=== PATIENT | male | born 1935 | race Caucasian/White ===

== ENCOUNTER → 2018-02-12 | Outpatient (CLI) | payer OTHER, MEDICARE ==
[~2018-02-12] MED LIST: AMOX500C2 PO; ERYT3.5O8 OS; IOHEXOL 350 MG/ML 100 ML (OMNIPAQUE 350) VIAL IV ONE; NS 100 ML (IVPB) BAG IV ONE; RECEIVED CONTRAST (Hold Metformin) IV SCH
[2018-02-12 13:34] LABS: CREATININE SERUM 1.22 MG/DL (0.60-1.30)
--- NOTE | 2018-02-12 14:51 | Diagnostic Imaging Report ---
PROCEDURE: CT abdomen and pelvis with and without contrast. TECHNIQUE: Precontrast acquisitions were acquired through the abdomen and pelvis. Multiple contiguous axial images were obtained through the abdomen and pelvis after the administration of intravenous contrast. INDICATION: Abdominal pain. Patient has history of kidney stones. COMPARISON: Correlation is made with prior CT from 02/17/2008. FINDINGS: The lung bases are clear. No discrete liver mass is identified. The gallbladder appears to be surgically absent. No biliary ductal dilatation is identified. The pancreas and spleen are unremarkable. No adrenal mass is seen. There is a tiny nonobstructing calculus in the lower pole of the right kidney. There are multiple cortical low-density masses in both kidneys, the largest in the lower pole of the left kidney measuring 4.7 cm and most suggestive of cysts. The aorta is heavily calcified but nonaneurysmal. No central retroperitoneal or mesenteric lymphadenopathy is seen. The small and large bowel loops are normal in caliber. There is no ascites. A partially filled urinary bladder is unremarkable. The prostate gland is enlarged measuring 5.2 cm AP x 6.6 cm transverse. No pelvic lymphadenopathy is seen. Bony structures are nonacute. IMPRESSION: 1. Bilateral renal cysts and tiny nonobstructing right renal calculus. No obstructive uropathy is seen. 2. Prostatomegaly. Dictated by: Dictated on workstation # [id number]
== END ==
LOC: RAD 12:58
PROVIDERS: ATTEND Physician Assistant
DX: N28.1 Cyst of kidney, acquired (principal); N40.0 Benign prostatic hyperplasia without lower urinary tract symptoms; Z87.442 Personal history of urinary calculi
CPT/HCPCS: 36415; 74178; 82565; 84520

== ENCOUNTER 2019-01-08 05:41 | Outpatient (CLI) | payer MEDICARE, OTHER ==
[~2019-01-08] VITALS: Ht 177 cm; Wt 104.5 kg
[~2019-01-08 05:41] MED LIST changes: -IOHEXOL 350 MG/ML 100 ML (OMNIPAQUE 350) VIAL IV ONE; -NS 100 ML (IVPB) BAG IV ONE; -RECEIVED CONTRAST (Hold Metformin) IV SCH
[2019-01-08] MEDS ORDERED: ASPI-586 PO (15:21)
[2019-01-08] MEDS ORDERED: INSU100V6 SQ (15:21)
[2019-01-08] MEDS ORDERED: INSU100V16 SQ (15:21)
[2019-01-08] MEDS ORDERED: ROSU20TA32 PO (15:21)
[2019-01-08] MEDS ORDERED: [UNRECOGNIZED DRUG - CODE] PO (15:21)
[2019-01-08] MEDS ORDERED: HYDR25TA4 PO (15:21)
[2019-01-08] MEDS ORDERED: OMEP20TA7 PO (15:21)
[2019-01-08] MEDS ORDERED: CYAN500T62 PO (15:21)
[2019-01-08] MEDS ORDERED: LORA0.5T PO (15:21)
[2019-01-08] MEDS ORDERED: MECL-106 PO (15:21)
[2019-01-08] MEDS ORDERED: COD1CAPS6 PO (15:21)
== END 2019-01-08 15:25 | disposition home or self-care (01) ==
LOC: PREOP 05:41
PROVIDERS: ATTEND Specialist
DX: Z01.818 Encounter for other preprocedural examination (principal)

== ENCOUNTER 2019-01-10 07:57 | Day surgery (SDC) | payer MEDICARE, OTHER ==
[~2019-01-10] VITALS: Ht 177 cm; Wt 104.5 kg
[~2019-01-10 07:57] MED LIST changes: +ASPI-586 PO; +COD1CAPS13 PO; +CYAN500T62 PO; +HYDR25TA4 PO; +INSU100V16 SQ; +INSU100V6 SQ; +LORA0.5T PO; +MECL-106 PO; +OMEP20TA7 PO; +ROSU20TA32 PO; +[UNRECOGNIZED DRUG - CODE] PO
[2019-01-10] MEDS ORDERED: POVIDONE (BETADINE) OPHTH SOLN 5% 30 ML OP ONE (08:15)
[2019-01-10] MEDS ORDERED: LIDOCAINE PF 1% 2 ML AMP IR PRN (08:15)
[2019-01-10] MEDS ORDERED: MOXIFLOXACIN OPHTH SOLN 5 MG/ML 0.3 ML SYRINGE OP ONE (08:15)
[2019-01-10] MEDS ORDERED: TIMOLOL MALEATE 0.5% 5 ML (TIMOPTIC) BTL OU PRN (08:15)
[2019-01-10] MEDS: TETRACAINE 0.5% OPHTH SOLN 4 ML BTL (SINGLE DOSE ONLY) OU PRN ×4 (08:24→08:46)
[2019-01-10 08:28] VITALS: BP 145/85
[2019-01-10] MEDS: CYCLOPENTOLATE 1% (CYCLOGYL) 2 ML DROPS OP SCH ×3 (08:35→08:46)
[2019-01-10] MEDS: PHENYLEPHRINE 10% OPHTH (NEO-SYN) 5 ML BTL OU SCH ×3 (08:35→08:46)
--- NOTE | 2019-01-10 09:02 | Ophthalmologist Pre-Op Note ---
Pre-Operative Progress Note H&P Reviewed The H&P was reviewed, patient examined and no changes noted. Date H&P Reviewed: Jan 10, 2019 Time H&P Reviewed: 09:02 Pre-Op Dx Cataract, Right Eye SHARON ORTEGA MD Jan 10, 2019 09:02 POS
[2019-01-10] MEDS ORDERED: MIDAZOLAM 2 MG/2 ML (VERSED) VIAL ONE (09:07)
--- NOTE | 2019-01-10 09:30 | Ophthalmology Operative Report ---
Cataract removal/placement IOL PREOPERATIVE DIAGNOSIS: Cataract Right Eye POSTOPERATIVE DIAGNOSIS: Cataract Right Eye PROCEDURE: Cataract removal and placement of posterior chamber implant, right eye SURGEON: Telly Ortega ANESTHESIA: Topical with sedation COMPLICATIONS: None ESTIMATED BLOOD LOSS: Minimal DESCRIPTION OF PROCEDURE: After proper informed consent was obtained, the patient, a 83 male, was taken to the Operating Room and the right eye was anesthetized with tetracaine. The right eye was then prepped and draped in the usual manner. A wire lid speculum was placed. A paracentesis was made at the left hand position. Preservative free lidocaine was injected into the anterior chamber followed by viscoelastic. A clear corneal incision was made in the temporal position. A capsulorrhexis was preformed and the central nuclear and cortical material were removed. The posterior capsule was polished and Jah 21.0 AU00T0 IOL was placed into the capsular bag. The residual viscoelastic was aspirated and balanced saline solution was injected into the anterior chamber. Moxifloxacin was injected into the anterior chamber. The wound was checked and found to be water tight. The patient tolerated the procedure well without complications. TELLY ORTEGA MD Jan 10, 2019 09:30 POS
[2019-01-10 09:50] VITALS: BP 159/77
--- NOTE | 2019-01-10 11:50 | Anesthesia-General Post-Op ---
MAC Patient Condition Mental Status/LOC: Same as Preop Cardiovascular: Satisfactory Nausea/Vomiting: Absent Respiratory: Satisfactory Pain: Controlled Complications: Absent Post Op Complications Complications None Follow Up Care/Instructions Patient Instructions None needed. Anesthesiology Discharge Order Discharge Order Patient is doing well, no complaints, stable vital signs, no apparent adverse anesthesia problems. No complications reported per nursing. SALOMÓN DHILLON CRNA Jan 10, 2019 11:50 POS
== END 2019-01-10 09:50 | disposition home or self-care (01) ==
LOC: SDC 07:57
PROVIDERS: ATTEND Specialist
DX: H25.11 Age-related nuclear cataract, right eye (principal); I25.10 Atherosclerotic heart disease of native coronary artery without angina pectoris; I11.9 Hypertensive heart disease without heart failure; K21.9 Gastro-esophageal reflux disease without esophagitis; E66.9 Obesity, unspecified; M19.90 Unspecified osteoarthritis, unspecified site; Z68.33 Body mass index [BMI] 33.0-33.9, adult; Z79.4 Long term (current) use of insulin; Z88.2 Allergy status to sulfonamides; Z90.49 Acquired absence of other specified parts of digestive tract; Z90.89 Acquired absence of other organs; Z86.73 Personal history of transient ischemic attack (TIA), and cerebral infarction without residual deficits; Z79.899 Other long term (current) drug therapy; Z83.511 Family history of glaucoma; Z83.518 Family history of other specified eye disorder; Z83.3 Family history of diabetes mellitus

== ENCOUNTER 2019-01-17 07:15 | Day surgery (SDC) | payer MEDICARE, OTHER ==
[~2019-01-17] VITALS: Ht 177.8 cm; Wt 104.5 kg
[2019-01-17 07:15] VITALS: BP 166/110
[~2019-01-17 07:15] MED LIST changes: -COD1CAPS13 PO; +COD1CAPS6 PO
[2019-01-17] MEDS: TETRACAINE 0.5% OPHTH SOLN 4 ML BTL (SINGLE DOSE ONLY) OU PRN ×3 (07:26→07:59)
[2019-01-17] MEDS: PHENYLEPHRINE 10% OPHTH (NEO-SYN) 5 ML BTL OU SCH ×3 (07:26→07:59)
[2019-01-17] MEDS: CYCLOPENTOLATE 1% (CYCLOGYL) 2 ML DROPS OP SCH ×3 (07:26→07:59)
[2019-01-17] MEDS ORDERED: TIMOLOL MALEATE 0.5% 5 ML (TIMOPTIC) BTL OU PRN (07:30)
[2019-01-17] MEDS ORDERED: LIDOCAINE PF 1% 2 ML AMP IR PRN (07:30)
[2019-01-17] MEDS ORDERED: MOXIFLOXACIN OPHTH SOLN 5 MG/ML 0.3 ML SYRINGE OP ONE (07:30)
[2019-01-17] MEDS ORDERED: POVIDONE (BETADINE) OPHTH SOLN 5% 30 ML OP ONE (07:30)
--- NOTE | 2019-01-17 08:47 | Ophthalmologist Pre-Op Note ---
Pre-Operative Progress Note H&P Reviewed The H&P was reviewed, patient examined and no changes noted. Date H&P Reviewed: Jan 17, 2019 Time H&P Reviewed: 08:47 Pre-Op Dx Cataract, Left Eye SHARON ORTEGA MD Jan 17, 2019 08:47 POS
[2019-01-17] MEDS ORDERED: MIDAZOLAM 2 MG/2 ML (VERSED) VIAL ONE (08:57)
--- NOTE | 2019-01-17 09:15 | Ophthalmology Operative Report ---
Cataract removal/placement IOL PREOPERATIVE DIAGNOSIS: Cataract Left Eye POSTOPERATIVE DIAGNOSIS: Cataract Left Eye PROCEDURE: Cataract removal and placement of posterior chamber implant, left eye SURGEON: Telly Ortega ANESTHESIA: Topical with sedation COMPLICATIONS: None ESTIMATED BLOOD LOSS: Minimal DESCRIPTION OF PROCEDURE: After proper informed consent was obtained, the patient, a 84 male, was taken to the Operating Room and the left eye was anesthetized with tetracaine. The left eye was then prepped and draped in the usual manner. A wire lid speculum was placed. A paracentesis was made at the left hand position. Preservative free lidocaine was injected into the anterior chamber followed by viscoelastic. A clear corneal incision was made in the temporal position. A capsulorrhexis was preformed and the central nuclear and cortical material were removed. The posterior capsule was polished and an Jah 20.5 AU00T0 was placed into the capsular bag. The residual viscoelastic was aspirated and balanced saline solution was injected into the anterior chamber. Moxifloxacin was injected into the anterior chamber. The wound was checked and found to be water tight. The patient tolerated the procedure well without complications. TELLY ORTEGA MD Jan 17, 2019 09:14 POS
[2019-01-17 09:25] VITALS: BP 166/90
--- NOTE | 2019-01-17 12:36 | Anesthesia-General Post-Op ---
MAC Patient Condition Mental Status/LOC: Same as Preop Cardiovascular: Satisfactory Nausea/Vomiting: Absent Respiratory: Satisfactory Pain: Controlled Complications: Absent Post Op Complications Complications None Follow Up Care/Instructions Patient Instructions None needed. Anesthesiology Discharge Order Discharge Order Patient is doing well, no complaints, stable vital signs, no apparent adverse anesthesia problems. No complications reported per nursing. TISHA MONTOYA CRNA Jan 17, 2019 12:36 POS
== END 2019-01-17 09:25 | disposition home or self-care (01) ==
LOC: SDC 07:15
PROVIDERS: ATTEND Specialist
DX: E11.36 Type 2 diabetes mellitus with diabetic cataract (principal); H25.12 Age-related nuclear cataract, left eye; I10 Essential (primary) hypertension; I25.10 Atherosclerotic heart disease of native coronary artery without angina pectoris; G51.0 Bell's palsy; K21.9 Gastro-esophageal reflux disease without esophagitis; E66.9 Obesity, unspecified; M19.90 Unspecified osteoarthritis, unspecified site; Z68.33 Body mass index [BMI] 33.0-33.9, adult; Z90.49 Acquired absence of other specified parts of digestive tract; Z79.4 Long term (current) use of insulin; Z79.899 Other long term (current) drug therapy; Z88.2 Allergy status to sulfonamides; Z95.1 Presence of aortocoronary bypass graft; Z90.89 Acquired absence of other organs; Z87.891 Personal history of nicotine dependence; Z83.511 Family history of glaucoma; Z83.3 Family history of diabetes mellitus; Z83.518 Family history of other specified eye disorder

== ENCOUNTER 2019-03-28 20:14 | Inpatient (IN) | payer OTHER ==
[~2019-03-28] VITALS: Ht 177.8 cm; Wt 112.8 kg
[~2019-03-28 20:14] MED LIST changes: +COD1CAPS13 PO; -COD1CAPS6 PO; -MECL-106 PO; +MECL-149 PO
--- NOTE | 2019-03-28 20:24 | ED General ---
General Stated Complaint: WEAKNESS Source of Information: Patient, EMS Exam Limitations: No Limitations History of Present Illness Date Seen by Provider: Mar 28, 2019 Time Seen by Provider: 20:22 Initial Comments To ER for EMS from home with reports of general weakness, difficulty walking. Physical chills, nausea, vomiting, diarrhea, cough, runny nose. Symptoms began last night his was sick last night, she got up, he got up to help her. In doing so fell and hit his head area no loss of consciousness no headache he's had weakness, trouble walking because of the weakness and nausea today. Timing/Duration: 1-2 Days Severity: Moderate Associated Systoms: Cough, Fever/Chills; No Headaches; Nausea/Vomiting, Weakness Allergies and Home Medications Allergies Coded Allergies: Sulfa (Sulfonamide Antibiotics) (Unverified Allergy, Severe, HIVES, SOA, 01/08/19) Home Medications Aspirin 81 Mg Tablet.dr, 160 MG PO DAILY, (Reported) Cod Liver Oil 1 Each Capsule, 1 EACH PO DAILY, (Reported) Cyanocobalamin (Vitamin B-12) 500 Mcg Tablet, 500 MCG PO DAILY, (Reported) Erythromycin Stearate 250 Mg Tablet, 250 MG PO DAILY, (Reported) Hydrochlorothiazide 25 Mg Tablet, 25 MG PO DAILY, (Reported) Insulin Aspart 100 Unit/1 Ml Susp, 15 UNIT SQ AC, (Reported) Lorazepam 0.5 Mg Tablet, 0.5 MG PO DAILY, (Reported) Meclizine HCl 25 Mg Tablet, 25 MG PO DAILY, (Reported) Omeprazole 20 Mg Tablet.dr, 20 MG PO DAILY, (Reported) Oseltamivir Phosphate 75 Mg Cap, 75 MG PO BID Prescribed by: CARMITA VILLALPANDO on 03/30/19 1017 Rosuvastatin Calcium 20 Mg Tablet, 20 MG PO DAILY, (Reported) Patient Home Medication List Home Medication List Reviewed: Yes Review of Systems Review of Systems Constitutional: see HPI, weakness EENTM: see HPI Respiratory: see HPI, cough Cardiovascular: no symptoms reported Gastrointestinal: nausea, vomiting Genitourinary: no symptoms reported Musculoskeletal: no symptoms reported Skin: no symptoms reported Psychiatric/Neurological: No Symptoms Reported Hematologic/Lymphatic: No Symptoms Reported Immunological/Allergic: no symptoms reported Past Wkjwlbk-Vlsiuc-Koqfpa Hx Immunizations Up To Date Date of Pneumonia Vaccine: Feb 05, 2011 Past Medical History Heart Attack, Hypertension Reproductive Disorders: No Diabetes, Insulin dep Anxiety Family Medical History No Pertinent Family Hx Physical Exam Vital Signs Vital Signs - First Documented 03/28/19 03/28/19 03/28/19 03/29/19 20:16 20:35 22:11 01:25 Temp 36.7 Pulse 85 Resp 18 B/P (MAP) 129/68 (88) Pulse Ox 98 O2 Delivery Room Air O2 Flow Rate 2.00 FiO2 28 Capillary Refill : Height, Weight, BMI Height: 5'10" Weight: 230lbs. oz. 104.020773eh; BMI Method:Stated General Appearance: No Apparent Distress, WD/WN, Other Eyes: Bilateral Eye Normal Inspection, Bilateral Eye PERRL, Bilateral Eye EOMI HEENT: PERRL/EOMI, TMs Normal, Other Neck: Full Range of Motion, Normal Inspection Respiratory: No Accessory Muscle Use, No Respiratory Distress Gastrointestinal: Non Tender, Soft Neurologic/Psychiatric: Alert, Oriented x3 Skin: Normal Color, Warm/Dry Progress/Results/Core Measures Suspected Sepsis SIRS Temperature: Pulse: Respiratory Rate: Laboratory Tests 03/28/19 20:19: White Blood Count 6.9 03/29/19 06:14: White Blood Count 5.3 Blood Pressure / Mean: Laboratory Tests 03/28/19 20:19: Creatinine 1.09, Platelet Count 128L, Total Bilirubin 0.5 03/29/19 06:14: Creatinine 1.02, Platelet Count 139, Total Bilirubin 0.5 Results/Orders Lab Results Laboratory Tests Test 03/29/19 10:51 03/29/19 16:09 03/29/19 20:46 03/30/19 05:15 Range/Units Glucometer 257 H 229 H 85 165 H 70-110 MG/DL Test 03/30/19 10:55 Range/Units Glucometer 95 70-110 MG/DL Micro Results My Orders Medications Given in ED Vital Signs/I&O Capillary Refill : Departure Communication (Admissions) Time/Spoke to Admitting Phy: 20:45 Did become hypoxic at 86% on room air. O2 at 2L applied per NC. Impression Primary Impression: Influenza A Additional Impression: Hypoxia Disposition: ADMITTED INPATIENT Condition: Stable Admissions Decision to Admit Reason: Admit from ER (General) Decision to Admit/Date: Mar 31, 2019 Time/Decision to Admit Time: 20:45 Departure-Patient Inst. Referrals: WIN,NELLIE MD (PCP/Family) Primary Care Physician Scripts Oseltamivir Phosphate (Tamiflu) 75 Mg Cap 75 MG PO BID for 3 Days, #5 CAP 0 Refills Prov: CARMITA VILLALPANDO MD 03/30/19 KAYLA HOWELL APRN Mar 28, 2019 20:24
[2019-03-28 20:26] LABS: BASOPHILS % (AUTO) 0 % (0-10); EOSINOPHILS # (AUTO) 0.1 10^3/uL (0.0-0.3); EOSINOPHILS % (AUTO) 1 % (0-10); HEMATOCRIT 39 % (40-54); HEMOGLOBIN 13.3 G/DL (13.3-17.7); LYMPHOCYTES # (AUTO) 0.5 X 10^3 (1.0-4.0); LYMPHOCYTES % (AUTO) 7 % (12-44); MEAN CORPUSCULAR HEMOGLOBIN 30 PG (25-34); MEAN CORPUSCULAR HGB CONC 34 G/DL (32-36); MEAN CORPUSCULAR VOLUME 87 FL (80-99); MEAN PLATELET VOLUME 9.4 FL (7.4-10.4); MONOCYTES # (AUTO) 0.7 X 10^3 (0.0-1.0); MONOCYTES % (AUTO) 10 % (0-12); NEUTROPHILS # (AUTO) 5.6 X 10^3 (1.8-7.8); NEUTROPHILS % (AUTO) 82 % (42-75); PLATELET COUNT 128 10^3/uL (130-400); RED CELL DISTRIBUTION WIDTH 14.5 % (10.0-14.5); WHITE BLOOD COUNT 6.9 10^3/uL (4.3-11.0)
[2019-03-28] MEDS ORDERED: NS IV 1000 ML 1,000 ML IV SCH (20:30)
[2019-03-28] MEDS ORDERED: ONDANSETRON 4 MG/2 ML (SDV) Z0FRAN IVP ONE (20:30)
--- NOTE | 2019-03-28 20:35 | NUR ---
O2 SATS DROPPING TO 86-88%. Lance HOWELL APRN NOTIFIED. 02 APPLIED AT 2L VIA NC.
[2019-03-28 20:45] LABS: ALANINE AMINOTRANSFERASE 39 U/L (0-55); ALBUMIN 3.7 GM/DL (3.2-4.5); ALKALINE PHOSPHATASE 64 U/L (40-136); BILIRUBIN,TOTAL 0.5 MG/DL (0.1-1.0); BUN/CREATININE RATIO 13; CALCIUM 8.9 MG/DL (8.5-10.1); CARBON DIOXIDE 21 MMOL/L (21-32); CHLORIDE 105 MMOL/L (98-107); CREATININE SERUM 1.09 MG/DL (0.60-1.30); GFR ESTIMATED > 60; GLUCOSE 164 MG/DL (70-105); SODIUM 139 MMOL/L (135-145); TOTAL PROTEIN 6.5 GM/DL (6.4-8.2)
--- NOTE | 2019-03-28 21:20 | Diagnostic Imaging Report ---
PROCEDURE: CT head and CT cervical spine without contrast. TECHNIQUE: Multiple contiguous axial images were obtained through the brain and cervical spine without the use of intravenous contrast. Sagittal and coronal reformations through the cervical spine were then performed. Auto Exposure Controls were utilized during the CT exam to meet ALARA standards for radiation dose reduction. INDICATION: Fall with head trauma and weakness Comparison is made with prior examination from 05/21/2014. FINDINGS: There is prominence of the ventricles and sulci. There is no hydrocephalus or cerebral edema. There is no midline shift or mass-effect. There is no intracranial mass, hemorrhage, or extra-axial fluid collection. There is some diffuse decreased attenuation of the periventricular white matter which is nonspecific. The visualized paranasal sinuses and mastoid air cells are clear. There are no regional areas of decreased attenuation appreciated to suggest an acute CVA. IMPRESSION: 1. No acute intracranial process. 2. Age-appropriate atrophy. 3. Decreased attenuation of the periventricular white matter which is nonspecific, however, likely reflects senescent change and/or chronic small vessel ischemic disease. Dictated by: Dictated on workstation # [id number]
--- NOTE | 2019-03-28 21:23 | Diagnostic Imaging Report ---
PROCEDURE: CT abdomen and pelvis without contrast. TECHNIQUE: Multiple contiguous axial images were obtained through the abdomen and pelvis without the use of intravenous contrast. Auto Exposure Controls were utilized during the CT exam to meet ALARA standards for radiation dose reduction. INDICATION: Right abdominal pain after fall. Bilious vomiting and weakness. FINDINGS: There are coronary artery calcifications. The lung bases are clear. The liver is normal in size without focal lesions. Gallbladder appears to be surgically absent. Spleen is normal. Pancreas and adrenal glands are unremarkable. There is a punctate nonobstructing stone in the right kidney. There are bilateral renal cysts. There is mild atherosclerotic calcification of the aorta which is nonaneurysmal. Bowel gas pattern is nonspecific. No free air. No ascites. No focal inflammatory changes. There is some diverticular disease without evidence of diverticulitis. There is enlargement of the prostate. There are degenerative changes in the spine. IMPRESSION: Coronary artery calcification. Bilateral renal cysts and a punctate nonobstructing right renal calculus. Diverticular disease without evidence of diverticulitis. Prostatic enlargement. No other acute abnormality in the abdomen or pelvis. Dictated by: Dictated on workstation # [id number]
--- NOTE | 2019-03-28 21:34 | Diagnostic Imaging Report ---
INDICATION: Fall with abdominal pain. FINDINGS: There is cardiomegaly. There is a right perihilar infiltrate. No pleural effusion or pneumothorax. Mediastinum is unremarkable. IMPRESSION: Cardiomegaly with some right perihilar atelectasis and/or pneumonitis. Dictated by: Dictated on workstation # [id number]
[2019-03-28 21:39] LABS: BILIRUBIN,URINE NEGATIVE (NEGATIVE); CLARITY,URINE CLEAR; COLOR,URINE YELLOW; GLUCOSE, URINE (UA) TRACE (NEGATIVE); KETONES,URINE 1+ (NEGATIVE); LEUKOCYTE ESTERASE ,URINE NEGATIVE (NEGATIVE); NITRITE,URINE NEGATIVE (NEGATIVE); PROTEIN,URINE TRACE (NEGATIVE)
[2019-03-28 21:51] LABS: BACTERIA,URINE TRACE /HPF; RBC,URINE 0-2 /HPF; WBC,URINE 0-2 /HPF
--- NOTE | 2019-03-28 22:25 | NUR ---
JASSI COLE SR admitted to room 426-1, with an admitting diagnosis of INFLUENZA A WITH HYPOXIA, on 03/28/19 AT 2225 from ED via STRETCHER, accompanied by AND ED STAFF.JASSI COLE SR introduced to surroundings, call light, bed controls, phone, TV, temperature control, lights, meal times, smoking policy, visitor policy, side rail policy, bathrooms and showers. Patient Rights given to patient in the handbook. JASSI COLE SR verbalizes understanding that [facility] is not responsible for the loss or damage to any personal effects or valuables that are kept in the patients posession during their hospitalization. JASSI COLE SR verbalizes understanding of Interdisciplinary Patient Education. Patient and/or family were informed about the Rapid Response Team and its purpose.
[2019-03-28 22:32] VITALS: BP 165/83
[2019-03-28] MEDS ORDERED: PROMETHAZINE INJ 25 MG/ML (PHENERGAN) AMP IVP PRN ×2 (23:00→23:15)
[2019-03-28] MEDS ORDERED: ACETAMINOPHEN 325 MG TABLET PO PRN (23:00)
[2019-03-28] MEDS ORDERED: ONDANSETRON 4 MG/2 ML (SDV) Z0FRAN IVP PRN (23:00)
[2019-03-28] MEDS: ENOXAPARIN 40 MG/0.4 ML (LOVENOX) SYR SC SCH (23:54)
[2019-03-28] MEDS: NS IV 1000 ML 1,000 ML IV SCH (23:54)
[2019-03-28] MEDS: OSELTAMIVIR 75 MG (TAMIFLU) CAPSULE PO SCH (23:54)
[2019-03-29] VITALS (7 sets, daily range): BP systolic 121–156; BP diastolic 57–71
[2019-03-29] MEDS ORDERED: RT-ALBUTEROL SULF 2.5 MG/3 ML PRE-MIX VIAL ONE (01:33)
[2019-03-29] MEDS: RT-ALBUTEROL/IPRATROPIUM 3 ML (DUONEB) VIAL INH SCH ×7 (01:46→22:04)
[2019-03-29] MEDS: inSUlin ASPART (NovoLOG) 1 UNIT/0.01 ML (CHARGE PER UNIT) SC SCH ×7 (06:00→21:09)
[2019-03-29 06:22] LABS: BASOPHILS % (AUTO) 0 % (0-10); EOSINOPHILS # (AUTO) 0.1 10^3/uL (0.0-0.3); EOSINOPHILS % (AUTO) 1 % (0-10); HEMATOCRIT 38 % (40-54); HEMOGLOBIN 12.7 G/DL (13.3-17.7); LYMPHOCYTES # (AUTO) 0.6 X 10^3 (1.0-4.0); LYMPHOCYTES % (AUTO) 11 % (12-44); MEAN CORPUSCULAR HEMOGLOBIN 30 PG (25-34); MEAN CORPUSCULAR HGB CONC 33 G/DL (32-36); MEAN CORPUSCULAR VOLUME 88 FL (80-99); MEAN PLATELET VOLUME 9.6 FL (7.4-10.4); MONOCYTES # (AUTO) 0.7 X 10^3 (0.0-1.0); MONOCYTES % (AUTO) 14 % (0-12); NEUTROPHILS # (AUTO) 3.9 X 10^3 (1.8-7.8); NEUTROPHILS % (AUTO) 74 % (42-75); PLATELET COUNT 139 10^3/uL (130-400); RED CELL DISTRIBUTION WIDTH 14.5 % (10.0-14.5); WHITE BLOOD COUNT 5.3 10^3/uL (4.3-11.0)
[2019-03-29 06:42] LABS: ALANINE AMINOTRANSFERASE 34 U/L (0-55); ALBUMIN 3.4 GM/DL (3.2-4.5); ALKALINE PHOSPHATASE 62 U/L (40-136); BILIRUBIN,TOTAL 0.5 MG/DL (0.1-1.0); BUN/CREATININE RATIO 13; CALCIUM 8.5 MG/DL (8.5-10.1); CARBON DIOXIDE 25 MMOL/L (21-32); CHLORIDE 108 MMOL/L (98-107); CREATININE SERUM 1.02 MG/DL (0.60-1.30); GFR ESTIMATED > 60; GLUCOSE 199 MG/DL (70-105); POTASSIUM 4.2 MMOL/L (3.6-5.0); SODIUM 142 MMOL/L (135-145); TOTAL PROTEIN 6.1 GM/DL (6.4-8.2)
[2019-03-29] MEDS: OSELTAMIVIR 75 MG (TAMIFLU) CAPSULE PO SCH ×2 (09:41→21:09)
--- NOTE | 2019-03-29 10:16 | Physical Therapy Evaluation ---
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 He fell and struck his head on an intable. Pt taken to ER via EMS. Admitted with Influenza A. Social History Home: Single Level Current Living Status: Spouse Prior Prior Level of Function SCALE: Activities may be completed with or without assistive devices. 9-Ehhrlpvoqw-awsrvka completes the activity by him/herself with no assistance from a helper. 5-Set-up or Clean-up Assistance-helper sets up or cleans up; patient completes activity. [place] assists only prior to or following the activity. 4-Supervision or Touching Assistance-helper provides verbal cues and/or touching/steadying and/or contact guard assistance as patient completes activi ty. Assistance may be provided throughout the activity or intermittently. 3-Partial/Moderate Assistance-helper does LESS THAN HALF the effort. [place] lifts, holds or supports trunk or limbs, but provides less than half the effort. 2-Substantial/Maximal Assistance-helper does MORE THAN HALF the effort. [place] lifts or holds trunk or limbs and provides more than half the effort. 2-Omsmxibak-toffsv does ALL the effort. Patient does none of the effort to complete the activity. Or, the assistance of 2 or more helpers is required for the patient to complete the activity. If activity was not attempted, code reason: 7-Patient Refused. 9-Not Applicable-not attempted and the patient did not perform the activity before the current illness, exacerbation or injury. 10-Not Attempted due to Environmental Limitations-(lack of equipment, weather restraints, etc.). 88-Not Attempted due to Medical Conditions or Safety Concerns. Bed Mobility: 6 Transfers (B,C,W/C): 6 Gait: 6 Stairs: 6 Uses a single point cane due to chronic knee pain from OA and intermittent vertigo. PT Evaluation-Current Subjective Pt reports that he is feeling much better. Regarding balance he feels normal. Objective Patient Orientation: Normal For Age ROM/Strength ROM Upper Extremities WFL ROM Lower Extremities WFL Strength Upper Extremities WFL Strength Lower Extremities WFL Sensory Vision: Functional Hearing: Functional Transfers Roll Left to Right (QC): 6 Sit to Lying (QC): 6 Lying to Sitting/Side of Bed(Q: 6 Sit to Stand (QC): 5 Chair/Moi-oh-Uibpe Xfer(QC): 5 Gait Does the Patient Walk?: Yes Mode of Locomotion: Walk Anticipated Mode of Locomotion: Walk Walk 10 feet (QC): 5 Walk 50 ft with 2 Turns(QC): 5 Walk 150 ft (QC): 88 Walking 10ft/uneven surface-QC: 88 Distance: 50 Gait Assistive Device: Cane Single Point Comments/Gait Description Stable gait using single point cane. CGA due to report of intermittent vertigo. Walked in the room around the bed multiple times. Did not enter hallway due to dx. Wheelchair Training Does the Pt Use a Wheelchair?: No Balance Sitting Static: Normal Sitting Dynamic: Normal Standing Static: Good Standing Dynamic: Good Assessment/Needs Pt has some instability during gait that would benefit from a follow up visit to ensure stability in wide open spaces. Rehab Potential: Good PT Music Internship Goals Music Internship Goals PT Intermediate Goals Time Frame: Apr 01, 2019 Roll Left & Right (QC): 6 Sit to Lying (QC): 6 Lying-Sitting on Side/Bed(QC): 6 Sit to Stand (QC): 6 Chair/Vgl-ek-Xiatw Xfer(QC): 6 Toilet Transfer (QC): 6 Does the Patient Walk: Yes Walk 10 feet (QC): 6 Walk 50ft with 2 Turns (QC): 6 Walk 150 ft (QC): 6 PT Plan Problem List Problem List: Activity Tolerance, Gait Treatment/Plan Treatment Plan: Continue Plan of Care Treatment Duration: Apr 04, 2019 Frequency: 5 times per week Estimated Hrs Per Day: .25 hour per day Patient and/or Family Agrees t: Yes Safety Risks/Education Patient Education: Gait Training Teaching Recipient: Patient Discharge Recommendations Plan Plan to perform one follow up session for gait re-assessment. If patient dem onstrates safe mobility he will be dismissed from PT services. Target Placement home with Time/GCodes Time In: 900 Time Out: 940 Total Billed Treatment Time: 40 Total Billed Treatment visit, evaluation moderate complexity 40 min HEIDI VACA PT Mar 29, 2019 10:16
--- NOTE | 2019-03-29 12:42 | History & Physical-Hospitalist ---
History of Present Illness HPI/Chief Complaint Randy Elliott is an 84-year-old male with past medical history of hypertension, diabetes mellitus, hyperlipidemia, GERD, who presented with weakness. He reports that he got up out of bed and the felt very weak and had a fall. He reports that he has had the chills. He reports nausea and vomiting. He reports runny nose and cough. His has been sick and was diagnosed with the flu. He reports feeling short of breath. He denies any chest pain. He denies any abdominal pain. He denies any dysuria. He denies any rash. Source: patient Exam Limitations: no limitations Date Seen 03/29/19 Time Seen by a Provider: 09:25 Attending Physician Carmita Villalpando MD PCP Dawit Dempsey MD Referring Physician Date of Admission Mar 28, 2019 at 21:38 Home Medications & Allergies Home Medications Reviewed patient Home Medication Reconciliation performed by pharmacy medication reconciliations oil burner technician and/or nursing. Patients Allergies have been reviewed. Allergies Allergies Coded Allergies Sulfa (Sulfonamide Antibiotics) (Unverified Allergy, Severe, HIVES, SOA, 01/08/19) Past Vnepnqh-Khtrla-Ljnvrz Hx Past Med/Social Hx: Reviewed Nursing Past Med/Soc Hx Patient Social History Alcohol Use: Denies Use Recreational Drug Use: No Smoking Status: Former Smoker Recent Foreign Travel: No Contact w/other who traveled: No Recent Hopitalizations: No Recent Infectious Disease Expo: Yes (Has flu A) Immunizations Up To Date Date of Pneumonia Vaccine: Feb 05, 2011 Past Medical History Surgeries: Appendectomy, Coronary Stent Cardiac: Coronary Artery Disease, Heart Attack, Hypertension Neurological: Stroke Reproductive: No Endocrine: Diabetes, Insulin dep Psychosocial: Anxiety History of Blood Disorders: No Family History No Pertinent Family Hx Review of Systems Constitutional: chills, malaise, weakness EENTM: nose congestion Respiratory: cough, short of breath Cardiovascular: no symptoms reported Gastrointestinal: nausea, vomiting Genitourinary: no symptoms reported Musculoskeletal: no symptoms reported Skin: no symptoms reported Psychiatric/Neurological: No Symptoms Reported Physical Exam Physical Exam Vital Signs Vital Signs - First Documented 03/28/19 03/28/19 03/28/19 03/29/19 20:16 20:35 22:11 01:25 Temp 36.7 Pulse 85 Resp 18 B/P (MAP) 129/68 (88) Pulse Ox 98 O2 Delivery Room Air O2 Flow Rate 2.00 FiO2 28 Capillary Refill : Less Than 3 Seconds Height, Weight, BMI Height: 5'10" Weight: 230lbs. oz. 104.509845sq; 35.68 BMI Method:Stated General Appearance: No Apparent Distress, WD/WN, Obese HEENT: PERRL/EOMI, Pharynx Normal Neck: Normal Inspection, Supple Respiratory: No Respiratory Distress, Crackles Cardiovascular: Regular Rate, Rhythm, No Edema, No Murmur Gastrointestinal: Normal Bowel Sounds, Non Tender, Soft Extremity: Normal Inspection, Non Tender, No Pedal Edema Neurologic/Psychiatric: Alert, Oriented x3, No Motor/Sensory Deficits, Normal Mood/Affect Skin: Normal Color, Warm/Dry Results Results/Procedures Labs Laboratory Tests 03/28/19 20:19 03/29/19 06:14 Patient resulted labs reviewed. Imaging: Reviewed Imaging Report Assessment/Plan Admission Diagnosis Acute respiratory failure with hypoxia Admission Status: Inpatient Order (span 2 midnights) Reason for Inpatient Admission: Influenza requiring oxygen Assessment and Plan Acute respiratory failure with hypoxia Influenza A Flu testing positive for influenza A Requiring supplemental oxygen Started on Tamiflu Type II diabetes mellitus Levemir 30 units nightly NovoLog 10 units with meals Sliding scale insulin level C Hypertension Hyperlipidemia GERD Resume home meds after med reconciliation DVT prophylaxis: Lovenox Diagnosis/Problems Diagnosis/Problems (1) Acute respiratory failure with hypoxia (2) Influenza A Status: Acute Clinical Quality Measures DVT/VTE Risk/Contraindication: Risk Factor Score Per Nursin RFS Level Per Nursing on Admit: 4+=Very High CARMITA VILLALPANDO MD Mar 29, 2019 12:42
[2019-03-29] MEDS ORDERED: MILK OF MAGNESIA 400 MG/5 ML 30 ML UDC PO PRN (12:45)
[2019-03-29] MEDS ORDERED: ACETAMINOPHEN 325 MG TABLET PO PRN (12:45)
[2019-03-29] MEDS ORDERED: polyethylene glycoL POWDER 17 GM (MIRALAX) PACK PO PRN (12:45)
[2019-03-29] MEDS ORDERED: ANTACID SUSP 30 ML UDC (MYLANTA) PO PRN (12:45)
[2019-03-29] MEDS ORDERED: MELATONIN 3 MG TABLET PO PRN (12:45)
[2019-03-29] MEDS ORDERED: ONDANSETRON 4 MG (ZOFRAN) ORAL DISSOLVE TAB PO PRN (12:45)
[2019-03-29] MEDS ORDERED: BISACODYL 10 MG SUPP (DULCOLAX) PR PRN (12:45)
[2019-03-29] MEDS ORDERED: SIMETHICONE 80 MG (MYLICON) CHEW PO PRN (13:45)
[2019-03-29] MEDS: NS IV 1000 ML 1,000 ML IV SCH (13:55)
[2019-03-29] MEDS: METOCLOPRAMIDE 10 MG (REGLAN) TAB PO SCH ×2 (17:32→21:09)
--- NOTE | 2019-03-29 21:00 | NUR ---
Dr. Mcfadden notified of accucheck at 85. Instructed to give only 15 units of Levemir at HS.
[2019-03-29] MEDS: ENOXAPARIN 40 MG/0.4 ML (LOVENOX) SYR SC SCH (21:09)
[2019-03-30 00:10] VITALS: BP 136/73
[2019-03-30] MEDS: RT-ALBUTEROL/IPRATROPIUM 3 ML (DUONEB) VIAL INH SCH ×3 (02:49→11:05)
[2019-03-30] MEDS: NS IV 1000 ML 1,000 ML IV SCH (03:19)
[2019-03-30 04:00] VITALS: BP 166/68
[2019-03-30] MEDS: inSUlin ASPART (NovoLOG) 1 UNIT/0.01 ML (CHARGE PER UNIT) SC SCH ×3 (06:03→11:29)
[2019-03-30] MEDS: METOCLOPRAMIDE 10 MG (REGLAN) TAB PO SCH ×2 (06:37→11:29)
[2019-03-30] MEDS ORDERED: PATIENT MAY USE OWN MEDS, ALL MC SCH (07:45)
[2019-03-30 07:46] VITALS: BP 175/84
[2019-03-30] MEDS ORDERED: [UNRECOGNIZED DRUG - CODE] PO (07:57)
[2019-03-30] MEDS: OSELTAMIVIR 75 MG (TAMIFLU) CAPSULE PO SCH (08:30)
[2019-03-30] MEDS ORDERED: ERYTHROMYCIN 250 MG PO SCH (09:00)
[2019-03-30] MEDS ORDERED: OSLT75C PO (10:17)
--- NOTE | 2019-03-30 10:21 | Discharge Summary ---
Discharge Summary Hospital Course Was the Problem List Reviewed?: Yes Problems/Dx: (1) Acute respiratory failure with hypoxia Status: Resolved (2) Influenza A Status: Acute Hospital Course Date of Admission: Mar 28, 2019 at 21:38 Admission Diagnosis : Acute hypoxic respiratory failure due to influenza infection Family Physician/Provider: Dawit Rodriguez MD Date of Discharge: 03/30/19 Discharge Diagnosis: Acute hypoxic respiratory failure due to influenza in [facility] Hospital Course: Randy Elliott is an 84-year-old male who presented with shortness of breath and was admitted with acute hypoxic respiratory failure due to influenza infection. He was started on Tamiflu. His oxygen requirement decreased and resolved prior to discharge. He showed a follow-up with his primary care physician, Dr. Adeola york, in about a week. Labs and Pending Lab Test: Laboratory Tests 03/29/19 10:51: Glucometer 257H 03/29/19 16:09: Glucometer 229H 03/29/19 20:46: Glucometer 85 03/30/19 05:15: Glucometer 165H Microbiology 03/28/19 Influenza Types A,B Antigen (FLAKITO) - Final, Complete Home Meds Active Tamiflu (Oseltamivir Phosphate) 75 Mg Cap 75 Mg PO BID 3 Days Reported Novolog (Insulin Aspart) 100 Unit/1 Ml Susp 15 Unit SQ AC Lantus (Insulin Glargine,Hum.rec.anlog) 100 Unit/1 Ml Vial 100 Unit SQ Cod Liver Oil 1 Each Capsule 1 Each PO DAILY Vitamin B-12 (Cyanocobalamin (Vitamin B-12)) 500 Mcg Tablet 500 Mcg PO DAILY Aspir 81 (Aspirin) 81 Mg Tablet.dr 160 Mg PO DAILY Meclizine HCl 25 Mg Tablet 25 Mg PO DAILY Lorazepam 0.5 Mg Tablet 0.5 Mg PO DAILY Omeprazole 20 Mg Tablet.dr 20 Mg PO DAILY Erythromycin Stearate 250 Mg Tablet 250 Mg PO DAILY Rosuvastatin Calcium 20 Mg Tablet 20 Mg PO DAILY Hydrochlorothiazide 25 Mg Tablet 25 Mg PO DAILY Assessment/Pt Instructions Take medications as prescribed. Complete your course of Tamiflu even if you're feeling better. Follow-up with your primary care physician in about a week. Discharge Planning: <30 minutes discharge planning Discharge Instructions Discharge Diet: No Restrictions Activity as Tolerated: Yes Discharge Physical Examination Vital Signs Vital Signs Date Time Temp Pulse Resp B/P (MAP) Pulse Ox O2 Delivery O2 Flow Rate FiO2 2/23/20 07:46 37.2 74 18 175/84 (114) 92 Room Air 03/30/19 00:10 1.50 03/29/19 01:25 28 General Appearance: No Apparent Distress, WD/WN Respiratory: Lungs Clear, Normal Breath Sounds, No Respiratory Distress Cardiovascular: Regular Rate, Rhythm, No Edema, No Murmur Gastrointestinal: Normal Bowel Sounds, Non Tender, Soft Extremity: Normal Inspection, Non Tender, No Pedal Edema Skin: Normal Color, Warm/Dry Neurologic/Psychiatric: Alert, Oriented x3, No Motor/Sensory Deficits, Normal Mood/Affect Allergies: Coded Allergies: Sulfa (Sulfonamide Antibiotics) (Unverified Allergy, Severe, HIVES, SOA, 01/08/19) Copy Copies To 1: DAWIT RODRIGUEZ MD Discharge Summary Date of Admission Mar 28, 2019 at 21:38 Date of Discharge Discharge Date: Mar 30, 2019 Discharge Time: 10:21 Admission Diagnosis Acute respiratory failure with hypoxia Discharge Diagnosis Acute respiratory failure with hypoxia, Influenza A (1) Acute respiratory failure with hypoxia Status: Resolved (2) Influenza A Status: Acute Clinical Quality Measures DVT/VTE Risk/Contraindication: Risk Factor Score Per Nursin RFS Level Per Nursing on Admit: 4+=Very High CARMITA VILLALPANDO MD Mar 30, 2019 10:21
[2019-03-30] MEDS ORDERED: ERYTHROMYCIN STEARATE PO SCH (11:30)
== END 2019-03-30 11:20 | disposition home or self-care (01) | DRG 193 ==
LOC: EDUNIT# 20:14 → ER 20:15 → UNDOADMIN 21:38 → 4TH 21:38
PROVIDERS: ADMIT Internal Medicine; ATTEND Internal Medicine
DX: J10.1 Influenza due to other identified influenza virus with other respiratory manifestations (principal); J96.01 Acute respiratory failure with hypoxia; E11.9 Type 2 diabetes mellitus without complications; Z79.4 Long term (current) use of insulin; F41.9 Anxiety disorder, unspecified; I10 Essential (primary) hypertension; E78.5 Hyperlipidemia, unspecified; I25.10 Atherosclerotic heart disease of native coronary artery without angina pectoris; K21.9 Gastro-esophageal reflux disease without esophagitis; I25.2 Old myocardial infarction; Z87.891 Personal history of nicotine dependence; Z95.5 Presence of coronary angioplasty implant and graft; Z90.49 Acquired absence of other specified parts of digestive tract
CPT/HCPCS: 36415; 70450; 71045; 72125; 74176; 80053; 81000; 82962; 83880; 84484; 85025; 87804; 93005; 94640; 94664; 94760; 96374

== ENCOUNTER 2020-11-25 17:11 | Observation (INO) | payer OTHER ==
[~2020-11-25] VITALS: Ht 178 cm; Wt 100.0 kg
[~2020-11-25 17:11] MED LIST changes: -CYAN500T62 PO; +CYAN500T8 PO; +OSLT75C PO; +[UNRECOGNIZED DRUG - CODE] PO
--- NOTE | 2020-11-25 17:21 | ED Abdominal Pain ---
General Chief Complaint: Abdominal/GI Problems Stated Complaint: ABD PAIN, N/V,DIARRHEA Source of Information: Patient Exam Limitations: No Limitations History of Present Illness Date Seen by Provider: Nov 25, 2020 Time Seen by Provider: 17:20 Initial Comments To ER by EMS from home with reports of right-sided abdominal pain that radiates down into the testicle for about 2 weeks. Has had some diarrhea but the nausea and vomiting started today. EMS gave 4 mg of Zofran in route and initiated a bag of fluids. Status post cholecystectomy and appendectomy many years ago Timing/Duration: Constant, Getting Worse Severity/Quality: Moderate Location: RLQ Radiation: No Radiation Activities at Onset: None Associated Symptoms: Nausea/Vomiting Allergies and Home Medications Allergies Coded Allergies: Sulfa (Sulfonamide Antibiotics) (Unverified Allergy, Severe, HIVES, SOA, 01/08/19) Patient Home Medication List Home Medication List Reviewed: Yes Aspirin (Aspir 81) 81 Mg Tablet.dr, 160 MG PO DAILY, (Reported) Entered as Reported by: LEA MARTINEZ on 01/08/191520 Cod Liver Oil (Cod Liver Oil) 1 Each Capsule, 1 EACH PO DAILY, (Reported) Entered as Reported by: LEA MARTINEZ on 01/08/191520 Cyanocobalamin (Vitamin B-12) (Vitamin B-12) 500 Mcg Tablet, 500 MCG PO DAILY, (Reported) Entered as Reported by: LEA MARTINEZ on 01/08/191520 Erythromycin Stearate (Erythromycin Stearate) 250 Mg Tablet, 250 MG PO DAILY, (Reported) Entered as Reported by: LEA MARTINEZ on 01/08/191520 Hydrochlorothiazide (Hydrochlorothiazide) 25 Mg Tablet, 25 MG PO DAILY, (Reported) Entered as Reported by: LEA MARTINEZ on 01/08/191520 Insulin Aspart (Novolog) 100 Unit/1 Ml Susp, 15 UNIT SQ AC, (Reported) Entered as Reported by: LEA MARTINEZ on 01/08/191520 Insulin Glargine,Hum.rec.anlog (Lantus) 100 Unit/1 Ml Vial, 100 UNIT SQ, (Reported) Entered as Reported by: LEA MARTINEZ on 12/4/19 1521 Lorazepam (Lorazepam) 0.5 Mg Tablet, 0.5 MG PO DAILY, (Reported) Entered as Reported by: LEA MARTINEZ on 01/08/19 1521 Meclizine HCl (Meclizine HCl) 25 Mg Tablet, 25 MG PO DAILY, (Reported) Entered as Reported by: LEA MARTINEZ on 01/08/19 1521 Omeprazole (Omeprazole) 20 Mg Tablet.dr, 20 MG PO DAILY, (Reported) Entered as Reported by: LEA MARTINEZ on 01/08/19 1521 Oseltamivir Phosphate (Tamiflu) 75 Mg Cap, 75 MG PO BID Prescribed by: CARMITA VILLALPANDO on 03/30/19 1017 Rosuvastatin Calcium (Rosuvastatin Calcium) 20 Mg Tablet, 20 MG PO DAILY, (Reported) Entered as Reported by: LEA MARTINEZ on 01/08/19 152 Review of Systems Review of Systems Constitutional: see HPI EENTM: No Symptoms Reported Respiratory: No Symptoms Reported Cardiovascular: See HPI Gastrointestinal: See HPI, Abdominal Pain, Nausea Genitourinary: No Symptoms Reported Musculoskeletal: no symptoms reported Skin: no symptoms reported Psychiatric/Neurological: No Symptoms Reported Endocrine: No Symptoms Reported Hematologic/Lymphatic: No Symptoms Reported Past Zwodyxj-Iwcawt-Ozrsgc Hx Patient Social History Tobacco Use?: No Use of E-Cig and/or Vaping dev: No Substance use?: No Alcohol Use?: No Immunizations Up To Date First/Initial COVID19 Vaccinat: 2020 Second COVID19 Vaccination Maurice: 2020 COVID19 Vaccine Debrander: NATHANAEL Past Medical History Surgery/Hospitalization HX: PMH: HTN, HIGH CHOLESTEROL SX: GALLBLADDER, APPENDIX Surgeries: Yes (CATARACT SX) Appendectomy, Coronary Stent Respiratory: No Cardiac: Yes (STENT) Coronary Artery Disease, Heart Attack, Hypertension Neurological: Yes (chronic dizziness/vertigo; CVA WITH LEFT SIDE FACIAL DROOP) Stroke Reproductive Disorders: No Gastrointestinal: Yes (DIABETIC GASTROPARESIS ) Musculoskeletal: Yes Endocrine: Yes Diabetes, Insulin dep Cancer: No Psychosocial: Yes Anxiety Blood Disorders: No Family Medical History No Pertinent Family Hx Physical Exam Vital Signs Vital Signs - First Documented 11/25/20 17:13 Temp 36.0 Pulse 100 Resp 24 B/P (MAP) 161/86 (111) Pulse Ox 97 O2 Delivery Room Air Capillary Refill : Height/Weight/BMI Height: 5'10" Weight: 230lbs. oz. [id number]; 35.68 BMI Method:Stated General Appearance: WD/WN, no apparent distress HEENT: PERRL/EOMI, normal ENT inspection Respiratory: no respiratory distress, no accessory muscle use Gastrointestinal: normal bowel sounds, soft, abnormal bowel sounds (hypoactive), tenderness Extremities: normal range of motion, non-tender Neurologic/Psychiatric: alert, normal mood/affect, oriented x 3 Skin: normal color, warm/dry Progress/Results/Core Measures Results/Orders Lab Results Laboratory Tests Test 11/25/20 17:13 Range/Units White Blood Count 10.3 4.3-11.0 10^3/uL Red Blood Count 4.79 4.30-5.52 10^6/uL Hemoglobin 14.3 13.3-17.7 g/dL Hematocrit 41 40-54 % Mean Corpuscular Volume 86 80-99 fL Mean Corpuscular Hemoglobin 30 25-34 pg Mean Corpuscular Hemoglobin Concent 35 32-36 g/dL Red Cell Distribution Width 13.3 10.0-14.5 % Platelet Count 164 130-400 10^3/uL Mean Platelet Volume 9.5 9.0-12.2 fL Immature Granulocyte % (Auto) 0 % Neutrophils (%) (Auto) 72 42-75 % Lymphocytes (%) (Auto) 18 12-44 % Monocytes (%) (Auto) 8 0-12 % Eosinophils (%) (Auto) 1 0-10 % Basophils (%) (Auto) 0 0-10 % Neutrophils # (Auto) 7.5 1.8-7.8 X 10^3 Lymphocytes # (Auto) 1.9 1.0-4.0 X 10^3 Monocytes # (Auto) 0.9 0.0-1.0 X 10^3 Eosinophils # (Auto) 0.1 0.0-0.3 10^3/uL Basophils # (Auto) 0.0 0.0-0.1 10^3/uL Immature Granulocyte # (Auto) 0.0 0.0-0.1 10^3/uL Sodium Level 137 135-145 MMOL/L Potassium Level 3.3 L 3.6-5.0 MMOL/L Chloride Level 101 98-107 MMOL/L Carbon Dioxide Level 20 L 21-32 MMOL/L Anion Gap 16 H 5-14 MMOL/L Blood Urea Nitrogen 16 7-18 MG/DL Creatinine 1.11 0.60-1.30 MG/DL Estimat Glomerular Filtration Rate 63 BUN/Creatinine Ratio 14 Glucose Level 274 H 70-105 MG/DL Calcium Level 9.4 8.5-10.1 MG/DL Corrected Calcium 9.6 8.5-10.1 MG/DL Total Bilirubin 1.1 H 0.1-1.0 MG/DL Aspartate Amino Transf (AST/SGOT) 15 5-34 U/L Alanine Aminotransferase (ALT/SGPT) 18 0-55 U/L Alkaline Phosphatase 57 40-136 U/L Total Protein 6.8 6.4-8.2 GM/DL Albumin 3.7 3.2-4.5 GM/DL My Orders Orders - KAYLA HOWELL APRN Cbc With Automated Diff (11/25/20 17:17) Comprehensive Metabolic Panel (11/25/20 17:17) Ua Culture If Indicated (11/25/20 17:17) Ed Iv/Invasive Line Start (11/25/20 17:17) Bladder Scan (11/25/20 17:17) Ct Abd/Pelvis Wo(Kidney Stone) (11/25/20 17:17) Ketorolac Injection (Toradol Injection) (11/25/20 17:30) Fentanyl Inj (Sublimaze Injection) (11/25/20 17:30) Ondansetron Injection (Zofran Injectio (11/25/20 17:30) Ondansetron Injection (Zofran Injectio (11/25/20 17:22) Fentanyl Inj (Sublimaze Injection) (11/25/20 18:00) Piperacillin Sodium/Tazobactam (Zosyn Vi (11/25/20 18:00) Accucheck Stat ONCE (11/25/20 17:56) Medications Given in ED Current Medications Medications Dose Ordered Sig/Ayaz Route Start Time Stop Time Status Last Admin Dose Admin Fentanyl Citrate 50 mcg ONCE ONCE IVP 11/25/20 17:30 11/25/20 17:31 DC 11/25/20 17:24 50 MCG Fentanyl Citrate 50 mcg ONCE ONCE IVP 11/25/20 18:00 11/25/20 18:01 DC 11/25/20 18:12 50 MCG Ketorolac Tromethamine 15 mg ONCE ONCE IVP 11/25/20 17:30 11/25/20 17:31 DC 11/25/20 17:24 15 MG Ondansetron HCl 4 mg ONCE ONCE IVP 11/25/20 17:30 11/25/20 17:31 DC 11/25/20 17:24 4 MG Piperacillin Sod/ Tazobactam Sod 4.5 gm/Sodium Chloride 100 ml @ 200 mls/hr ONCE ONCE IV 11/25/20 18:00 11/25/20 18:29 DC 11/25/20 18:12 200 MLS/HR Vital Signs/I&O 11/25/20 17:13 Temp 36.0 Pulse 100 Resp 24 B/P (MAP) 161/86 (111) Pulse Ox 97 O2 Delivery Room Air Departure Communication (Admissions) 1949-I did discuss with the patient that his diverticulitis is mild on CT and his labs are reassuring. Offered him discharge home but he informs me he is too sick for that. His nausea and pain are too intense and he would benefit from admission subsequently for IV fluids nausea and pain control. Discussed with Dr. Dawit Rodriguez, agrees to admit for these things. Impression Primary Impression: Diverticulitis of intestine Disposition: ADMITTED INPATIENT Condition: Stable Admissions Decision to Admit Reason: Admit from ER (General) Decision to Admit/Date: Nov 25, 2020 Time/Decision to Admit Time: 18:35 Departure-Patient Inst. Referrals: DAWIT RODRIGUEZ MD (PCP/Family) Primary Care Physician KAYLA HOWELL APRN Nov 25, 2020 17:21
[2020-11-25] MEDS ORDERED: ONDANSETRON 4 MG/2 ML (SDV) Z0FRAN ONE (17:22)
[2020-11-25] MEDS ORDERED: ONDANSETRON 4 MG/2 ML (SDV) Z0FRAN IVP ONE (17:30)
[2020-11-25] MEDS ORDERED: fentaNYL INJ 100 MCG/2 ML AMP IVP ONE ×2 (17:30→18:00)
[2020-11-25] MEDS ORDERED: KETOROLAC 30 MG/ML VIAL IVP ONE (17:30)
[2020-11-25 17:34] LABS: BASOPHILS % (AUTO) 0 % (0-10); EOSINOPHILS # (AUTO) 0.1 10^3/uL (0.0-0.3); EOSINOPHILS % (AUTO) 1 % (0-10); HEMATOCRIT 41 % (40-54); HEMOGLOBIN 14.3 g/dL (13.3-17.7); LYMPHOCYTES # (AUTO) 1.9 X 10^3 (1.0-4.0); LYMPHOCYTES % (AUTO) 18 % (12-44); MEAN CORPUSCULAR HEMOGLOBIN 30 pg (25-34); MEAN CORPUSCULAR HGB CONC 35 g/dL (32-36); MEAN CORPUSCULAR VOLUME 86 fL (80-99); MEAN PLATELET VOLUME 9.5 fL (9.0-12.2); MONOCYTES # (AUTO) 0.9 X 10^3 (0.0-1.0); MONOCYTES % (AUTO) 8 % (0-12); NEUTROPHILS # (AUTO) 7.5 X 10^3 (1.8-7.8); NEUTROPHILS % (AUTO) 72 % (42-75); PLATELET COUNT 164 10^3/uL (130-400); WHITE BLOOD COUNT 10.3 10^3/uL (4.3-11.0)
[2020-11-25 17:46] LABS: ALBUMIN 3.7 GM/DL (3.2-4.5); POTASSIUM 3.3 MMOL/L (3.6-5.0)
[2020-11-25 17:47] LABS: CALCIUM 9.4 MG/DL (8.5-10.1)
[2020-11-25 17:49] LABS: TOTAL PROTEIN 6.8 GM/DL (6.4-8.2)
[2020-11-25 17:50] LABS: BILIRUBIN,TOTAL 1.1 MG/DL (0.1-1.0)
[2020-11-25 17:52] LABS: CREATININE SERUM 1.11 MG/DL (0.60-1.30)
[2020-11-25] MEDS ORDERED: PIPERACILLIN SODIUM/TAZOBACTAM 4.5 GM in NS (IVPB) 100 ML IV ONE (18:00)
--- NOTE | 2020-11-25 18:25 | Diagnostic Imaging Report ---
INDICATION: Abdominal pain and weakness x 2 weeks. Nausea and vomiting today. Questioned stones. EXAMINATION: CT abdomen and pelvis without contrast, 11/25/2020. All CT scans use one or more of the following dose optimizing techniques: automated exposure control, MA and/or KvP adjustment based on patient size and exam type or iterative reconstruction. COMPARISON: 03/28/2019. FINDINGS: The kidneys demonstrate multiple large cystic lesions, bilaterally. The findings on the left are consistent with cysts. There are several slightly complex appearing cystic structures in the right kidney with Hounsfield units greater than expected for a simple cyst. Nonemergent dedicated imaging of the kidneys is recommended for further characterization. There is no stone on the left. No hydronephrosis or ureteral stone noted on the left. There is punctate nonobstructive stones in the right kidney. No ureteral stone or hydronephrosis. The remaining abdominal viscera limited due to the lack of contrast with no acute abnormality appreciated in the liver or spleen. There is atrophy of the pancreas. The adrenal glands appear unremarkable. The appendix is not seen but there is no focal inflammatory change about the cecum. However, there is marked inflammatory change surrounding the sigmoid colon with diverticular disease noted. No abscess or free air appreciated. The prostate gland is markedly enlarged and clinical correlation with PSA is recommended. The osseous structures demonstrate diffuse degenerative findings. Mild atelectasis noted in the visualized lung bases. IMPRESSION: 1. Findings of diverticulitis about the sigmoid colon without evidence for perforation or abscess formation. 2. Multiple cystic lesions in the kidneys some of which are not simple in appearance on the right. See above discussion and recommendations. Nonobstructive nephrolithiasis also noted on the right with no ureteral stone or obstructive process present. Dictated by: Dictated on workstation # [id number]
[2020-11-25] MEDS ORDERED: SIMETHICONE 80 MG (MYLICON) CHEW PO ONE (18:45)
[2020-11-25] MEDS ORDERED: LORazepam 0.5 MG (ATIVAN) TABLET PO ONE (19:15)
[2020-11-25 19:42] VITALS: BP 178/78
[2020-11-25] MEDS ORDERED: KETOROLAC 15 MG/ML VIAL IV PRN (19:45)
[2020-11-25] MEDS ORDERED: fentaNYL INJ 100 MCG/2 ML AMP IV PRN (19:45)
[2020-11-25] MEDS ORDERED: ONDANSETRON 4 MG/2 ML (SDV) Z0FRAN IV PRN (19:45)
[2020-11-25] MEDS ORDERED: CATHETER FLUSH 10 ML SYR IV PRN (19:45)
[2020-11-25 20:23] VITALS: BP 145/67
[2020-11-25] MEDS: LACTATED RINGERS 1,000 ML IV SCH (20:36)
[2020-11-25] MEDS: inSUlin ASPART (NovoLOG) 1 UNIT/0.01 ML (CHARGE PER UNIT) SC SCH (20:36)
[2020-11-25 23:30] VITALS: BP 123/59
[2020-11-26] MEDS: PIPERACILLIN/TAZO 4.5 GM/NS 100 ML IV SCH ×4 (00:24→07:57)
[2020-11-26 03:21] VITALS: BP 151/72
[2020-11-26 05:14] LABS: BASOPHILS % (AUTO) 0 % (0-10); EOSINOPHILS % (AUTO) 0 % (0-10); HEMATOCRIT 39 % (40-54); LYMPHOCYTES # (AUTO) 0.8 10^3/uL (1.0-4.0); LYMPHOCYTES % (AUTO) 11 % (12-44); MEAN CORPUSCULAR HEMOGLOBIN 30 pg (25-34); MEAN CORPUSCULAR HGB CONC 34 g/dL (32-36); MEAN CORPUSCULAR VOLUME 88 fL (80-99); MEAN PLATELET VOLUME 9.5 fL (9.0-12.2); MONOCYTES # (AUTO) 0.7 10^3/uL (0.0-1.0); MONOCYTES % (AUTO) 9 % (0-12); NEUTROPHILS # (AUTO) 5.8 10^3/uL (1.8-7.8); NEUTROPHILS % (AUTO) 79 % (42-75); PLATELET COUNT 154 10^3/uL (130-400); WHITE BLOOD COUNT 7.4 10^3/uL (4.3-11.0)
[2020-11-26 05:24] LABS: POTASSIUM 3.6 MMOL/L (3.6-5.0)
[2020-11-26 05:29] LABS: CREATININE SERUM 1.01 MG/DL (0.60-1.30)
[2020-11-26] MEDS: inSUlin ASPART (NovoLOG) 1 UNIT/0.01 ML (CHARGE PER UNIT) SC SCH ×2 (06:13→11:42)
--- NOTE | 2020-11-26 07:42 | History & Physical ---
History of Present Illness History of Present Illness Reason for visit/HPI 85 yo M admitted for diverticulitis seen on CT. Patient reports that he had spaghetti at [employer] the other day and feels like the acid (tomato) upset his stomach along with his slow gut transition caused this GI issue. He reports he felt to sick to try and tough it out so he had the ambulance bring him to the ER. He has had intractable nausea and vomiting at home and again in the ambulance. Patient's labs were good, a little hypokalemic but improved with IVF overnight. He was started on zosyn and IVF. Overnight he has not vomited. This AM patient reports feeling much better; almost back to baseline. He would like to go home. Date of Admission Nov 25, 2020 at 18:44 Date Seen by a Provider: Nov 26, 2020 Time Seen by a Provider: 07:20 I consulted on this patient on 11/26/20 07:29 Attending Physician Dawit Rodriguez MD Admitting Physician Dawit Rodriguez MD Consult Allergies and Home Medications Allergies Coded Allergies: Sulfa (Sulfonamide Antibiotics) (Unverified Allergy, Severe, HIVES, SOA, 01/08/19) Patient Home Medication List Home Medication List Reviewed: Yes Aspirin (Aspir 81) 81 Mg Tablet.dr, 160 MG PO DAILY, (Reported) Entered as Reported by: LEA MARTINEZ on 01/08/191520 Cod Liver Oil (Cod Liver Oil) 1 Each Capsule, 1 EACH PO DAILY, (Reported) Entered as Reported by: LEA MARTINEZ on 01/08/191520 Cyanocobalamin (Vitamin B-12) (Vitamin B-12) 500 Mcg Tablet, 500 MCG PO DAILY, (Reported) Entered as Reported by: LEA MARTINEZ on 01/08/191520 Erythromycin Stearate (Erythromycin Stearate) 250 Mg Tablet, 250 MG PO DAILY, (Reported) Entered as Reported by: LEA MARTINEZ on 01/08/191520 Hydrochlorothiazide (Hydrochlorothiazide) 25 Mg Tablet, 25 MG PO DAILY, (Reported) Entered as Reported by: LEA MARTINEZ on 01/08/191520 Insulin Aspart (Novolog) 100 Unit/1 Ml Susp, 15 UNIT SQ AC, (Reported) Entered as Reported by: LEA MARTINEZ on 01/08/19 1521 Insulin Glargine,Hum.rec.anlog (Lantus) 100 Unit/1 Ml Vial, 100 UNIT SQ, (Reported) Entered as Reported by: LEA MARTINEZ on 01/08/19 152 Lorazepam (Lorazepam) 0.5 Mg Tablet, 0.5 MG PO DAILY, (Reported) Entered as Reported by: LEA MARTINEZ on 01/08/19 152 Meclizine HCl (Meclizine HCl) 25 Mg Tablet, 25 MG PO DAILY, (Reported) Entered as Reported by: LEA MARTINEZ on 01/08/19 152 Omeprazole (Omeprazole) 20 Mg Tablet.dr, 20 MG PO DAILY, (Reported) Entered as Reported by: LEA MARTINEZ on 01/08/19 152 Oseltamivir Phosphate (Tamiflu) 75 Mg Cap, 75 MG PO BID Prescribed by: CARMITA VILLALPANDO on 03/30/19 1017 Rosuvastatin Calcium (Rosuvastatin Calcium) 20 Mg Tablet, 20 MG PO DAILY, (Reported) Entered as Reported by: LEA MARTINEZ on 01/08/19 152 Past Kyerimg-Dqlwhd-Fbzcbg Hx Patient Social History Tobacco Use?: No Use of E-Cig and/or Vaping dev: No Substance use?: No Alcohol Use?: No Pt feels they are or have been: No Immunizations Up To Date First/Initial COVID19 Vaccinat: 2020 Second COVID19 Vaccination Maurice: 2020 Date of Pneumonia Vaccine: Feb 05, 2011 Current Status Advance Directives: No Communicates: Verbally Primary Language: Indian Preferred Spoken Language: Indian Is interpretation needed?: No Sensory deficits: Vision impairment, Hearing impairment Implanted or Applied Medical D: Stents Past Medical History Surgeries: Appendectomy, Coronary Stent Coronary Artery Disease, Heart Attack, Hypertension Stroke Diabetes, Insulin dep Anxiety Blood Disorders: No Family Medical History No Pertinent Family Hx Review of Systems Review of Systems General: No Chills, No Night Sweats HEENT: No Head Aches Pulmonary: No Dyspnea, No Cough Cardiovascular: No: Chest Pain, Palpitations Gastrointestinal: Nausea, Vomiting, Abdominal Pain Genitourinary: No Dysuria Musculoskeletal: No: neck pain Neurological: No: Weakness Physical Exam Vital Signs Vital Signs - First Documented 11/25/20 17:13 Temp 36.0 Pulse 100 Resp 24 B/P (MAP) 161/86 (111) Pulse Ox 97 O2 Delivery Room Air Capillary Refill : Less Than 3 Seconds Height, Weight, BMI Height: 5'10" Weight: 230lbs. oz. 104.907103vs; 31.56 BMI Method:Stated General Appearance: No Apparent Distress HEENT: PERRL/EOMI Neck: Non Tender, Supple Respiratory: Chest Non Tender, Lungs Clear, Normal Breath Sounds Cardiovascular: Regular Rate, Rhythm Gastrointestinal: Normal Bowel Sounds, Non Tender, Soft Rectal: Deferred Back: Normal Inspection, No CVA Tenderness Extremity: Non Tender, No Calf Tenderness Neurologic/Psychiatric: Alert, Oriented x3, Normal Mood/Affect Skin: Warm/Dry Assessment/Plan Assessment/Plan Admission Dx acute diverticulitis Admission Status: Observation Assessment and Plan monitored overnight. change admission to observation. IVF, zosyn, antiemetics, pain control. -he will get another dose of zosyn at 8am. -Will discharge to home with augmentin, zofran. -advance diet slowly. Problems: (1) Diverticulitis of sigmoid colon (2) Type 2 diabetes mellitus with hyperglycemia Assessment & Plan: sliding scale insulin for DM. will resume home medications on discharge. (3) GERD without esophagitis (4) HTN (hypertension) Qualifiers: Qualified Codes: I10 - Essential (primary) hypertension DAWIT RODRIGUEZ MD Nov 26, 2020 07:42
[2020-11-26] MEDS ORDERED: AMOX250S73 PO (07:56)
[2020-11-26] MEDS ORDERED: ONDA4TAB11 PO (07:58)
--- NOTE | 2020-11-26 07:59 | Discharge Summary ---
Discharge Summary Hospital Course Problems/Dx: (1) Diverticulitis of sigmoid colon (2) Type 2 diabetes mellitus with hyperglycemia (3) GERD without esophagitis (4) HTN (hypertension) Qualifiers: Qualified Codes: I10 - Essential (primary) hypertension Hospital Course Date of Admission: Nov 25, 2020 at 18:44 Admission Diagnosis : (1) Diverticulitis of sigmoid colon (2) Type 2 diabetes mellitus with hyperglycemia (3) GERD without esophagitis (4) HTN (hypertension) Qualifiers: Qualified Codes: I10 - Essential (primary) hypertension Family Physician/Provider: Dawit Rodriguez MD Date of Discharge: 11/26/20 Discharge Diagnosis: (1) Diverticulitis of sigmoid colon (2) Type 2 diabetes mellitus with hyperglycemia (3) GERD without esophagitis (4) HTN (hypertension) Hospital Course: 85 yo M admitted for diverticulitis seen on CT. Patient reports that he had spaghetti at [employer] the other day and feels like the acid (tomato) upset his stomach along with his slow gut transition caused this GI issue. He reports he felt to sick to try and tough it out so he had the ambulance bring him to the ER. He has had intractable nausea and vomiting at home and again in the ambulance. Patient's labs were good, a little hypokalemic but improved with IVF overnight. He was started on zosyn and IVF. Overnight he has not vomited. This AM patient reports feeling much better; almost back to baseline. He would like to go home. Labs and Pending Lab Test: Laboratory Tests 11/25/20 17:13: White Blood Count 10.3, Red Blood Count 4.79, Hemoglobin 14.3, Hematocrit 41, Mean Corpuscular Volume 86, Mean Corpuscular Hemoglobin 30, Mean Corpuscular Hemoglobin Concent 35, Red Cell Distribution Width 13.3, Platelet Count 164, Mean Platelet Volume 9.5, Immature Granulocyte % (Auto) 0, Neutrophils (%) (Auto) 72, Lymphocytes (%) (Auto) 18, Monocytes (%) (Auto) 8, Eosinophils (%) (Auto) 1, Basophils (%) (Auto) 0, Neutrophils # (Auto) 7.5, Lymphocytes # (Auto) 1.9, Monocytes # (Auto) 0.9, Eosinophils # (Auto) 0.1, Basophils # (Auto) 0.0, Immature Granulocyte # (Auto) 0.0, Sodium Level 137, Potassium Level 3.3L, Chloride Level 101, Carbon Dioxide Level 20L, Anion Gap 16H, Blood Urea Nitrogen 16, Creatinine 1.11, Estimat Glomerular Filtration Rate 63, BUN/Creatinine Ratio 14, Glucose Level 274H, Calcium Level 9.4, Corrected Calcium 9.6, Total Bilirubin 1.1H, Aspartate Amino Transf (AST/SGOT) 15, Alanine Aminotransferase (ALT/SGPT) 18, Alkaline Phosphatase 57, Total Protein 6.8, Albumin 3.7 11/25/20 17:58: Glucometer 256H 11/25/20 20:11: Glucometer 278H 11/26/20 04:35: White Blood Count 7.4, Red Blood Count 4.37, Hemoglobin 13.0L, Hematocrit 39L, Mean Corpuscular Volume 88, Mean Corpuscular Hemoglobin 30, Mean Corpuscular Hemoglobin Concent 34, Red Cell Distribution Width 13.2, Platelet Count 154, Noris n Platelet Volume 9.5, Immature Granulocyte % (Auto) 0, Neutrophils (%) (Auto) 79H, Lymphocytes (%) (Auto) 11L, Monocytes (%) (Auto) 9, Eosinophils (%) (Auto) 0, Basophils (%) (Auto) 0, Neutrophils # (Auto) 5.8, Lymphocytes # (Auto) 0.8L, Monocytes # (Auto) 0.7, Eosinophils # (Auto) 0.0, Basophils # (Auto) 0.0, Immature Granulocyte # (Auto) 0.0, Sodium Level 137, Potassium Level 3.6, Chloride Level 103, Carbon Dioxide Level 23, Anion Gap 11, Blood Urea Nitrogen 17, Creatinine 1.01, Estimat Glomerular Filtration Rate 71, BUN/Creatinine Ratio 17, Glucose Level 214H, Calcium Level 9.0 11/26/20 06:11: Glucometer 174H Home Meds Active Ondansetron Odt (Ondansetron) 4 Mg Tab.rapdis 4 Mg PO Q6H PRN Amox Tr-K Clv 250-62.5/5 Susp (Amoxicillin/Potassium Clav) 250 Mg/5 Ml Susp.recon 17 Ml PO Q12H 10 Days Tamiflu (Oseltamivir Phosphate) 75 Mg Cap 75 Mg PO BID 3 Days Reported Novolog (Insulin Aspart) 100 Unit/1 Ml Susp 15 Unit SQ AC Lantus (Insulin Glargine,Hum.rec.anlog) 100 Unit/1 Ml Vial 100 Unit SQ Cod Liver Oil 1 Each Capsule 1 Each PO DAILY Vitamin B-12 (Cyanocobalamin (Vitamin B-12)) 500 Mcg Tablet 500 Mcg PO DAILY Aspir 81 (Aspirin) 81 Mg Tablet.dr 160 Mg PO DAILY Meclizine HCl 25 Mg Tablet 25 Mg PO DAILY Lorazepam 0.5 Mg Tablet 0.5 Mg PO DAILY Omeprazole 20 Mg Tablet.dr 20 Mg PO DAILY Erythromycin Stearate 250 Mg Tablet 250 Mg PO DAILY Rosuvastatin Calcium 20 Mg Tablet 20 Mg PO DAILY Hydrochlorothiazide 25 Mg Tablet 25 Mg PO DAILY Assessment/Pt Instructions Discharged to home. Start augmentin liquid this evening- it was ordered as a liquid because it does not come in a capsule. -use zofran as needed for nausea. -advance diet as tolerated. -follow up at [facility] in 2 weeks. Discharge Planning: >30 minutes discharge planning Discharge Instructions Discharge Diet: Other Diet Activity as Tolerated: Yes Discharge Physical Examination Vital Signs Vital Signs Date Time Temp Pulse Resp B/P (MAP) Pulse Ox O2 Delivery O2 Flow Rate FiO2 11/26/20 03:21 36.5 65 18 151/72 (98) 93 Room Air General Appearance: No Apparent Distress Allergies: Coded Allergies: Sulfa (Sulfonamide Antibiotics) (Unverified Allergy, Severe, HIVES, SOA, 01/08/19) Discharge Summary Date of Admission Nov 25, 2020 at 18:44 Date of Discharge Discharge Diagnosis (1) Diverticulitis of sigmoid colon (2) Type 2 diabetes mellitus with hyperglycemia Assessment & Plan: sliding scale insulin for DM. will resume home medications on discharge. (3) GERD without esophagitis (4) HTN (hypertension) Qualifiers: Qualified Codes: I10 - Essential (primary) hypertension DAWIT RODRIGUEZ MD Nov 26, 2020 07:59
[2020-11-26 08:00] VITALS: BP_SYST 151; BP_SYST 187; BP_DIAS 67; BP_DIAS 89
[2020-11-26] MEDS: LACTATED RINGERS 1,000 ML IV SCH (11:17)
[2020-11-26 12:00] VITALS: BP 151/67
== END 2020-11-26 12:00 | disposition home or self-care (01) ==
LOC: EDUNIT# 17:11 → ER 17:13 → INTOOBSV 18:44 → 4TH 18:44 → EDLOC 18:44
PROVIDERS: ADMIT Family Medicine; ATTEND Family Medicine
DX: K57.32 Diverticulitis of large intestine without perforation or abscess without bleeding (principal); K21.9 Gastro-esophageal reflux disease without esophagitis; K31.84 Gastroparesis; E11.65 Type 2 diabetes mellitus with hyperglycemia; E11.43 Type 2 diabetes mellitus with diabetic autonomic (poly)neuropathy; E78.00 Pure hypercholesterolemia, unspecified; I10 Essential (primary) hypertension; F41.9 Anxiety disorder, unspecified; I25.10 Atherosclerotic heart disease of native coronary artery without angina pectoris; Z90.49 Acquired absence of other specified parts of digestive tract; Z90.89 Acquired absence of other organs; Z79.82 Long term (current) use of aspirin; Z79.899 Other long term (current) drug therapy; Z79.2 Long term (current) use of antibiotics; Z79.4 Long term (current) use of insulin
CPT/HCPCS: 36415; 74176; 80048; 80053; 82947; 85025; 96365; 96375; 96376; G0378

== ENCOUNTER 2022-08-16 22:54 | Observation (INO) | payer OTHER, MEDICARE ==
[~2022-08-16] VITALS: Ht 179.1 cm; Wt 98.7 kg
[~2022-08-16 22:54] MED LIST changes: +AMOX250S73 PO; +OMEP20TA56 PO; -OMEP20TA7 PO; +ONDA4TAB11 PO; -ROSU20TA32 PO; +ROSU20TA73 PO
[2022-08-16] MEDS ORDERED: FAMOTIDINE 20MG/2ML IV (PEPCID) IV STA (23:06)
--- NOTE | 2022-08-16 23:06 | ED Abdominal Pain ---
General Chief Complaint: Abdominal/GI Problems Stated Complaint: N/V Nursing Triage Note: TO ED VIA [facility] FROM HOME TO ROOM 9 WITH C/O N/V. BLOOD SUGAR 202 MG/DL. HX DM, DIVERTICULITIS. 20G IV SITE TO LAC STARTED BY EMS. 4 ZOFRAN GIVEN IV WITHOUT RELIEF. Source of Information: Patient, EMS, Family, Old Records Exam Limitations: No Limitations History of Present Illness Date Seen by Provider: Aug 16, 2022 Time Seen by Provider: 22:58 Initial Comments 87-year-old male with past medical history of diabetes, HTN, HLD, CAD, and prior diverticulitis coming in due to lower abdominal pain, mostly on the right side with associated nonbloody nonbilious vomiting that started earlier today. He did have a normal bowel movement, denies any dysuria, diarrhea, chest pain, shortness of breath, or any other concerns. EMS started IV fluids and given 4 mg of Zofran. Allergies and Home Medications Allergies Coded Allergies: Sulfa (Sulfonamide Antibiotics) (Unverified Allergy, Severe, HIVES, SOA, 01/08/19) Patient Home Medication List Home Medication List Reviewed: Yes Amoxicillin/Potassium Clav (Amox Tr-K Clv 250-62.5/5 Susp) 250 Mg/5 Ml Susp.recon, 17 ML PO Q12H Prescribed by: EPIFANIO RODRIGUEZ on 11/26/20 0756 Aspirin (Aspir 81) 81 Mg Tablet.dr, 160 MG PO DAILY, (Reported) Entered as Reported by: LEA MARTINEZ on 01/08/19 152 Cod Liver Oil (Cod Liver Oil) 1 Each Capsule, 1 EACH PO DAILY, (Reported) Entered as Reported by: LEA MARTINEZ on 01/08/19 152 Cyanocobalamin (Vitamin B-12) (Vitamin B-12) 500 Mcg Tablet, 500 MCG PO DAILY, (Reported) Entered as Reported by: LEA MARTINEZ on 01/08/191520 Erythromycin Stearate (Erythromycin Stearate) 250 Mg Tablet, 250 MG PO DAILY, (Reported) Entered as Reported by: LEA MARTINEZ on 01/08/19 152 Hydrochlorothiazide (Hydrochlorothiazide) 25 Mg Tablet, 25 MG PO DAILY, (Reported) Entered as Reported by: LEA MARTINEZ on 01/08/19 152 Insulin Aspart (Novolog) 100 Unit/1 Ml Susp, 15 UNIT SQ AC, (Reported) Entered as Reported by: LEA MARTINEZ on 01/08/19 152 Insulin Glargine,Hum.rec.anlog (Lantus) 100 Unit/1 Ml Vial, 100 UNIT SQ, (Reported) Entered as Reported by: LEA MARTINEZ on 01/08/19 152 Lorazepam (Lorazepam) 0.5 Mg Tablet, 0.5 MG PO DAILY, (Reported) Entered as Reported by: LEA MARTINEZ on 01/08/19 152 Meclizine HCl (Meclizine HCl) 25 Mg Tablet, 25 MG PO DAILY, (Reported) Entered as Reported by: LEA MARTINEZ on 01/08/19 152 Omeprazole (Omeprazole) 20 Mg Tablet.dr, 20 MG PO DAILY, (Reported) Entered as Reported by: LEA MARTINEZ on 01/08/191520 Ondansetron (Ondansetron Odt) 4 Mg Tab.rapdis, 4 MG PO Q6H PRN for NAUSEA-1ST LINE Prescribed by: EPIFANIO RODRIGUEZ on 11/26/20 0758 Rosuvastatin Calcium (Rosuvastatin Calcium) 20 Mg Tablet, 20 MG PO DAILY, (Reported) Entered as Reported by: LEA MARTINEZ on 01/08/191520 Review of Systems Review of Systems Constitutional: no symptoms reported EENTM: No Symptoms Reported Respiratory: No Symptoms Reported Cardiovascular: No Symptoms Reported Gastrointestinal: See HPI Genitourinary: No Symptoms Reported Musculoskeletal: no symptoms reported Skin: no symptoms reported Psychiatric/Neurological: No Symptoms Reported Past Hmltumy-Lnzojk-Kwsqtd Hx Immunizations Up To Date First/Initial COVID19 Vaccinat: 2020 Second COVID19 Vaccination Maurice: 2020 Third COVID19 Vaccination Date: 2020 Past Medical History Surgery/Hospitalization HX: PMH: HTN, HIGH CHOLESTEROL SX: GALLBLADDER, APPENDIX Surgeries: Yes (CATARACT SX) Appendectomy, Coronary Stent Respiratory: No Cardiac: Yes (STENT) Coronary Artery Disease, Heart Attack, Hypertension Neurological: Yes (chronic dizziness/vertigo; CVA WITH LEFT SIDE FACIAL DROOP) Stroke Reproductive Disorders: No Gastrointestinal: Yes (DIABETIC GASTROPARESIS ) Musculoskeletal: Yes Endocrine: Yes Diabetes, Insulin dep Cancer: No Psychosocial: Yes Anxiety Blood Disorders: No Family Medical History No Pertinent Family Hx Physical Exam Vital Signs Vital Signs - First Documented 08/16/22 22:56 Temp 36.6 Pulse 98 Resp 16 B/P (MAP) 169/83 (111) Pulse Ox 91 O2 Delivery Room Air Capillary Refill : Height/Weight/BMI Height: 5'10" Weight: 230lbs. oz. 104.722641wc; BMI Method:Stated General Appearance: WD/WN, mild distress HEENT: PERRL/EOMI, normal ENT inspection, pharynx normal Neck: non-tender, full range of motion, supple, normal inspection Respiratory: chest non-tender, lungs clear, normal breath sounds, no respiratory distress, no accessory muscle use Cardiovascular: regular rate, rhythm Gastrointestinal: normal bowel sounds, soft; No distended, No guarding, No rebound; tenderness Extremities: normal range of motion, non-tender, normal inspection, no calf tenderness, normal capillary refill Back: normal inspection, no CVA tenderness Neurologic/Psychiatric: no motor/sensory deficits, alert, normal mood/affect Skin: normal color, warm/dry Focused Exam Lactate Level 08/16/22 23:05: Lactic Acid Level 1.89 Lactic Acid Level Laboratory Tests Test 08/16/22 23:05 Lactic Acid Level 1.89 MMOL/L (0.50-2.00) Progress/Results/Core Measures Results/Orders Lab Results Laboratory Tests Test 08/16/22 23:05 08/17/22 00:00 Range/Units White Blood Count 14.4 H 4.3-11.0 10^3/uL Red Blood Count 4.67 4.30-5.52 10^6/uL Hemoglobin 13.2 L 13.3-17.7 g/dL Hematocrit 40 40-54 % Mean Corpuscular Volume 86 80-99 fL Mean Corpuscular Hemoglobin 28 25-34 pg Mean Corpuscular Hemoglobin Concent 33 32-36 g/dL Red Cell Distribution Width 13.4 10.0-14.5 % Platelet Count 185 130-400 10^3/uL Mean Platelet Volume 9.5 9.0-12.2 fL Immature Granulocyte % (Auto) 1 % Neutrophils (%) (Auto) 78 H 42-75 % Lymphocytes (%) (Auto) 13 12-44 % Monocytes (%) (Auto) 8 0-12 % Eosinophils (%) (Auto) 1 0-10 % Basophils (%) (Auto) 0 0-10 % Neutrophils # (Auto) 11.2 H 1.8-7.8 10^3/uL Lymphocytes # (Auto) 1.9 1.0-4.0 10^3/uL Monocytes # (Auto) 1.1 H 0.0-1.0 10^3/uL Eosinophils # (Auto) 0.1 0.0-0.3 10^3/uL Basophils # (Auto) 0.1 0.0-0.1 10^3/uL Immature Granulocyte # (Auto) 0.1 0.0-0.1 10^3/uL Neutrophils % (Manual) 75 % Lymphocytes % (Manual) 10 % Monocytes % (Manual) 12 % Band Neutrophils 2 % Reactive Lymphocytes 1 % Platelet Estimate ADEQUATE Blood Morphology Comment NORMAL Sodium Level 139 135-145 MMOL/L Potassium Level 3.1 L 3.6-5.0 MMOL/L Chloride Level 105 98-107 MMOL/L Carbon Dioxide Level 22 21-32 MMOL/L Anion Gap 12 5-14 MMOL/L Blood Urea Nitrogen 18 7-18 MG/DL Creatinine 1.10 0.60-1.30 MG/DL Estimat Glomerular Filtration Rate 66 BUN/Creatinine Ratio 16 Glucose Level 203 H 70-105 MG/DL Lactic Acid Level 1.89 0.50-2.00 MMOL/L Calcium Level 8.6 8.5-10.1 MG/DL Corrected Calcium 8.9 8.5-10.1 MG/DL Magnesium Level 2.0 1.6-2.4 MG/DL Total Bilirubin 0.6 0.1-1.0 MG/DL Aspartate Amino Transf (AST/SGOT) 13 5-34 U/L Alanine Aminotransferase (ALT/SGPT) 12 0-55 U/L Alkaline Phosphatase 60 40-136 U/L C-Reactive Protein High Sensitivity 1.57 H 0.00-0.50 MG/DL Total Protein 6.5 6.4-8.2 GM/DL Albumin 3.6 3.2-4.5 GM/DL Lipase 28 8-78 U/L Urine Color YELLOW Urine Clarity SL CLOUDY Urine pH 7.0 5-9 Urine Specific [place] 1.010 L 1.016-1.022 Urine Protein NEGATIVE NEGATIVE Urine Glucose (UA) 1+ H NEGATIVE Urine Ketones NEGATIVE NEGATIVE Urine Nitrite POSITIVE H NEGATIVE Urine Bilirubin NEGATIVE NEGATIVE Urine Urobilinogen 0.2 < = 1.0 MG/DL Urine Leukocyte Esterase 3+ H NEGATIVE Urine RBC (Auto) TRACE-I H NEGATIVE Urine RBC RARE /HPF Urine WBC 25-50 H /HPF Urine Squamous Epithelial Cells NONE /HPF Urine Crystals NONE /LPF Urine Bacteria LARGE H /HPF Urine Casts NONE /LPF Urine Mucus SMALL H /LPF Urine Culture Indicated YES My Orders Orders - ANKIT MANUEL MD Cbc With Automated Diff (08/16/22 23:06) Comprehensive Metabolic Panel (08/16/22 23:06) Hs C Reactive Protein (08/16/22 23:06) Lactic Acid Analyzer (08/16/22 23:06) Lipase (08/16/22 23:06) Magnesium (08/16/22 23:06) Ct Abdomen/Pelvis W (08/16/22 23:06) Ed Iv/Invasive Line Start (08/16/22 23:06) Ondansetron Injection (Zofran Injectio (08/16/22 23:15) Famotidine Injection (Pepcid Injection) (08/16/22 23:06) Manual Differential (08/16/22 23:05) Promethazine Injection (Phenergan Injec (08/17/22 00:00) Iohexol Injection (Omnipaque 350 Mg/Ml 1 (08/17/22 00:15) Received Contrast (Hold Metformin- Contr (08/17/22 00:15) Ns (Ivpb) (Sodium Chloride 0.9% Ivpb Bag (08/17/22 00:15) Ua Culture If Indicated (08/17/22 00:13) Ns (Ivpb) (Sodium Chloride 0.9% Ivpb Bag (08/17/22 00:13) Urine Culture (08/17/22 00:00) Medications Given in ED Current Medications Medications Dose Ordered Sig/Ayaz Route Start Time Stop Time Status Last Admin Dose Admin Iohexol 100 ml ONCE ONCE IV 08/17/22 00:15 08/17/22 00:16 DC 08/17/22 00:07 80 ML Ondansetron HCl 4 mg ONCE ONCE IVP 08/16/22 23:15 08/16/22 23:16 DC 08/16/22 23:20 4 MG Promethazine HCl 12.5 mg ONCE ONCE IVP 08/17/22 00:00 08/17/22 00:01 DC 08/17/22 00:15 12.5 MG Sodium Chloride 50 ml @ ud STK-MED ONCE .ROUTE 08/17/22 00:13 08/17/22 00:14 DC 08/17/22 00:16 200 MLS/HR Sodium Chloride 100 ml ONCE ONCE IV 08/17/22 00:15 08/17/22 00:16 DC 08/17/22 00:07 80 ML Vital Signs/I&O 08/16/22 22:56 Temp 36.6 Pulse 98 Resp 16 B/P (MAP) 169/83 (111) Pulse Ox 91 O2 Delivery Room Air 08/17/22 00:00 Intake Total 400 ml Balance 400 ml Blood Pressure Mean: 111 Progress Progress Note : Progress Note 87-year-old male with above history coming in due to vomiting and lower abdominal discomfort. ABCs were intact and vitals were stable on presentation. Physical exam with lower abdominal discomfort but no signs of peritonitis. An IV was placed and basic labs were obtained were significant for leukocytosis, mildly elevated CRP, normal kidney function, normal lactic acid. CT abdomen pelvis ordered to assess for bowel obstruction versus diverticulitis versus stump appendicitis versus some other etiology. I do not see any obvious kidney stone and no inflammatory changes on the CT on my interpretation. The overnight stat rad read was negative for any acute abnormalities. He received Zofran followed by Phenergan and 1 L of IV fluids per EMS. Is feeling somewhat better, but lives alone has difficulty walking already, and is now having more difficulty after the Phenergan which is expected. We will admit him under observation status to Dr. London for further evaluation and management. Of note, his potassium was also low, I put in orders for IV potassium while admitted. 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 Referrals: EPIFANIO RODRIGUEZ MD (PCP/Family) Primary Care Physician ANKIT MANUEL MD Aug 16, 2022 23:06
[2022-08-16 23:15] LABS: BASOPHILS # (AUTO) 0.1 10^3/uL (0.0-0.1); BASOPHILS % (AUTO) 0 % (0-10); EOSINOPHILS # (AUTO) 0.1 10^3/uL (0.0-0.3); EOSINOPHILS % (AUTO) 1 % (0-10); HEMATOCRIT 40 % (40-54); HEMOGLOBIN 13.2 g/dL (13.3-17.7); LYMPHOCYTES # (AUTO) 1.9 10^3/uL (1.0-4.0); LYMPHOCYTES % (AUTO) 13 % (12-44); MEAN CORPUSCULAR HEMOGLOBIN 28 pg (25-34); MEAN CORPUSCULAR HGB CONC 33 g/dL (32-36); MEAN CORPUSCULAR VOLUME 86 fL (80-99); MEAN PLATELET VOLUME 9.5 fL (9.0-12.2); MONOCYTES # (AUTO) 1.1 10^3/uL (0.0-1.0); MONOCYTES % (AUTO) 8 % (0-12); NEUTROPHILS # (AUTO) 11.2 10^3/uL (1.8-7.8); NEUTROPHILS % (AUTO) 78 % (42-75); PLATELET COUNT 185 10^3/uL (130-400); WHITE BLOOD COUNT 14.4 10^3/uL (4.3-11.0)
[2022-08-16] MEDS ORDERED: ONDANSETRON 4 MG/2 ML (SDV) Z0FRAN IVP ONE (23:15)
[2022-08-16 23:24] LABS: ALBUMIN 3.6 GM/DL (3.2-4.5); POTASSIUM 3.1 MMOL/L (3.6-5.0)
[2022-08-16 23:25] LABS: CALCIUM 8.6 MG/DL (8.5-10.1)
[2022-08-16 23:26] LABS: TOTAL PROTEIN 6.5 GM/DL (6.4-8.2)
[2022-08-16 23:28] LABS: BILIRUBIN,TOTAL 0.6 MG/DL (0.1-1.0)
[2022-08-16 23:30] LABS: CREATININE SERUM 1.1 MG/DL (0.60-1.30)
[2022-08-17] MEDS ORDERED: PROMETHAZINE INJ 25 MG/ML (PHENERGAN) AMP IVP ONE
[2022-08-17] MEDS ORDERED: NS (IVPB) 50 ML ONE (00:13)
[2022-08-17] MEDS ORDERED: HOLD METFORMIN - RECEIVED CONTRAST 20 ML VIAL IV SCH (00:15)
[2022-08-17] MEDS ORDERED: IOHEXOL 350 MG/ML 100 ML (OMNIPAQUE 350) VIAL IV ONE (00:15)
[2022-08-17] MEDS ORDERED: NS 100 ML (IVPB) BAG IV ONE (00:15)
[2022-08-17 00:21] LABS: BILIRUBIN,URINE NEGATIVE (NEGATIVE); CLARITY,URINE SL CLOUDY; COLOR,URINE YELLOW; GLUCOSE, URINE (UA) 1+ (NEGATIVE); KETONES,URINE NEGATIVE (NEGATIVE); LEUKOCYTE ESTERASE ,URINE 3+ (NEGATIVE); NITRITE,URINE POSITIVE (NEGATIVE); PROTEIN,URINE NEGATIVE (NEGATIVE)
[2022-08-17 00:23] LABS: BAND NEUTROPHILS 2 %; LYMPHOCYTES % (MANUAL) 10 %; MONOCYTES % (MANUAL) 12 %; NEUTROPHILS % (MANUAL) 75 %; PLATELET ESTIMATE ADEQUATE; RBC MORPH NORMAL; REACTIVE LYMPHOCYTES 1 %
[2022-08-17 00:31] LABS: BACTERIA,URINE LARGE /HPF; RBC,URINE RARE /HPF; WBC,URINE 25-50 /HPF
[2022-08-17] MEDS ORDERED: cefTRIAXone IV/IM 1,000 MG in NS (IVPB) 50 ML IV ONE (00:45)
[2022-08-17] MEDS ORDERED: HYDROcodone/APAP 5 MG/325 MG (LORTAB) TAB PO PRN (03:00)
[2022-08-17] MEDS ORDERED: PROMETHAZINE INJ 25 MG/ML (PHENERGAN) AMP IVP PRN (03:00)
[2022-08-17] MEDS ORDERED: ONDANSETRON 4 MG/2 ML (SDV) Z0FRAN IV PRN (03:00)
[2022-08-17] MEDS ORDERED: ACETAMINOPHEN 500 MG TAB (TYLENOL) PO PRN (03:00)
[2022-08-17] MEDS ORDERED: CATHETER FLUSH 10 ML SYR IVP PRN (03:00)
[2022-08-17 03:02] VITALS: BP 140/70
[2022-08-17] MEDS ORDERED: RT-ALBUTEROL SULF 2.5 MG/3 ML PRE-MIX VIAL INH PRN (03:15)
[2022-08-17] MEDS ORDERED: NS (IVPB) 250 ML ONE (03:51)
[2022-08-17] MEDS: POTASSIUM CL 10 MEQ/50 ML IVPB (PRE-MIX) IV SCH ×4 (03:55→08:01)
[2022-08-17 04:00] VITALS: BP 155/78
[2022-08-17] MEDS ORDERED: CATHETER FLUSH 10 ML SYR IVP SCH (06:00)
[2022-08-17] MEDS ORDERED: inSUlin ASPART (NovoLOG) 1 UNIT/0.01 ML (CHARGE PER UNIT) SC SCH (06:00)
[2022-08-17 07:57] VITALS: BP 137/65
--- NOTE | 2022-08-17 08:39 | Diagnostic Imaging Report ---
PROCEDURE: CT abdomen and pelvis with contrast. TECHNIQUE: Multiple contiguous axial images were obtained through the abdomen and pelvis after administration of intravenous contrast. Auto Exposure Controls were utilized during the CT exam to meet ALARA standards for radiation dose reduction. All CT scans use one or more of the following dose optimizing techniques: automated exposure control, MA and/or KvP adjustment based on patient size and exam type or iterative reconstruction. INDICATION: Lower abdominal pain and vomiting. Comparison is made with prior CT from 11/25/2020. The lung bases are clear. No focal liver mass is identified. Gallbladder appears to be surgically absent. Intrahepatic and extrahepatic bile ducts are prominent which may be owing to postcholecystectomy state. Minimal cystic changes in the pancreatic head are noted. The body and tail are unremarkable. There is no pancreatic ductal dilatation. The spleen is unremarkable. No adrenal mass is identified. Both kidneys demonstrate cortical low-attenuation lesions consistent with cysts. There is a tiny nonobstructing calculus in the lower pole of the right kidney. Aorta is calcified but nonaneurysmal. The small and large bowel loops are normal caliber. There is occasional diverticula present but no evidence of acute diverticulitis. There is no free fluid or fluid collection. The bladder is unremarkable. Prostate is enlarged. Bony structures appear nonacute. IMPRESSION: 1. Bilateral renal cysts as well as tiny nonobstructing right renal calculus. 2. Uncomplicated diverticulosis. 3. Prostatomegaly. Dictated by: Dictated on workstation # [id number]
[2022-08-17 08:49] LABS: HEMATOCRIT 39 % (40-54); HEMOGLOBIN 13.2 g/dL (13.3-17.7); MEAN CORPUSCULAR HEMOGLOBIN 29 pg (25-34); MEAN CORPUSCULAR HGB CONC 34 g/dL (32-36); MEAN CORPUSCULAR VOLUME 85 fL (80-99); MEAN PLATELET VOLUME 9.5 fL (9.0-12.2); PLATELET COUNT 164 10^3/uL (130-400); WHITE BLOOD COUNT 15.8 10^3/uL (4.3-11.0)
[2022-08-17 09:02] LABS: POTASSIUM 4.3 MMOL/L (3.6-5.0)
[2022-08-17 09:03] LABS: CALCIUM 8.8 MG/DL (8.5-10.1)
[2022-08-17] MEDS: MAGNESIUM 1 GM/D5W 100 ML IVPB IV SCH ×2 (09:06→10:51)
[2022-08-17 09:07] LABS: CREATININE SERUM 1.05 MG/DL (0.60-1.30)
--- NOTE | 2022-08-17 10:32 | Short Stay Summary-Hospitalist ---
History of Present Illness HPI/Chief Complaint Patient is an 87-year-old male who presented to the hospital secondary to abdominal pain. He reported it to be mostly in the lower abdomen on the right side. He states he got sick and vomited earlier. He has a history of diverticulosis and diverticulitis and when the symptoms did not resolve he decided to seek evaluation in the emergency department. He remained nauseous with Zofran so Phenergan was given and then he was unsteady on his feet so decision was made to admit for observation. He was also found to have a urinary tract infection and was started on Rocephin. This morning he reports feeling better and is adamant that he will leave. Slightly confused when I saw him this morning and referred to the bedside commode as his 's commode. Despite this he was oriented to person place location and reason he was in the hospital. Informed patient of my recommendation to remain in the hospital another night but he declines. Discussed with his son the indication for continued hospitalization but son states that patient is quite hardheaded and has left AGAINST MEDICAL ADVICE in the past. He states once the patient has made up his mind there is no talking him out of it. Son reports he is in route to discuss continued hospitalization with his father. Source: patient Date Seen 08/17/22 Time Seen by a Provider: 10:31 Attending Physician Dawit Dempsey MD PCP Admitting Physician: Kevin London MD Attending Physician: Kevin London MD Referring Physician Date of Admission Aug 17, 2022 at 01:35 Home Medications & Allergies Home Medications Reviewed patient Home Medication Reconciliation performed by pharmacy medication reconciliations public works technician and/or nursing. Patients Allergies have been reviewed. Allergies Allergies Coded Allergies Sulfa (Sulfonamide Antibiotics) (Unverified Allergy, Severe, HIVES, SOA, 01/08/19) Past Ljyowqw-Jddjgd-Gflvkf Hx Patient Social History Employed/Student: retired Pt feels they are or have been: Unable to obtain Immunizations Up To Date First/Initial COVID19 Vaccinat: 2020 Second COVID19 Vaccination Maurice: 2020 Date of Pneumonia Vaccine: Feb 05, 2011 Current Status Communicates: Verbally Primary Language: Icelandic Preferred Spoken Language: Icelandic Is interpretation needed?: No Sensory deficits: Hearing impairment Past Medical History Surgeries: Appendectomy, Coronary Stent Coronary Artery Disease, Heart Attack, Hypertension Stroke Diabetes, Insulin dep Anxiety Blood Disorders: No Family Medical History No Pertinent Family Hx Review of Systems Constitutional: see HPI Physical Exam Physical Exam Vital Signs Vital Signs - First Documented 08/16/22 08/17/22 08/17/22 22:56 01:30 03:02 Temp 36.6 Pulse 98 Resp 16 B/P (MAP) 169/83 (111) Pulse Ox 91 O2 Delivery Room Air O2 Flow Rate 3.00 FiO2 32 Capillary Refill : Height, Weight, BMI Height: 5'10" Weight: 230lbs. oz. [id number]; BMI Method:Stated General Appearance: No Apparent Distress, Chronically ill Respiratory: Lungs Clear, No Respiratory Distress Cardiovascular: Regular Rate, Rhythm, No Murmur Gastrointestinal: Normal Bowel Sounds, Soft Neurologic/Psychiatric: Alert, Oriented x3 Results Results/Procedures Labs Laboratory Tests 08/16/22 23:05 08/17/22 08:37 Patient resulted labs reviewed. Imaging: Reviewed Imaging Report Imaging [facility] [place], [place] NAME: J[facility] REC#: [id number] PT STATUS: ADM Laisha : 1935 PHYSICIAN: ANKIT MANUEL MD ADMIT DATE: 08/17/22 Draft Date of Exam:08/16/22 CT ABDOMEN/PELVIS W PROCEDURE: CT abdomen and pelvis with contrast. TECHNIQUE: Multiple contiguous axial images were obtained through the abdomen and pelvis after administration of intravenous contrast. Auto Exposure Controls were utilized during the CT exam to meet ALARA standards for radiation dose reduction. All CT scans use one or more of the following dose optimizing techniques: automated exposure control, MA and/or KvP adjustment based on patient size and exam type or iterative reconstruction. INDICATION: Lower abdominal pain and vomiting. Comparison is made with prior CT from 11/25/2020. The lung bases are clear. No focal liver mass is identified. Gallbladder appears to be surgically absent. Intrahepatic and extrahepatic bile ducts are prominent which may be owing to postcholecystectomy state. Minimal cystic changes in the pancreatic head are noted. The body and tail are unremarkable. There is no pancreatic ductal dilatation. The spleen is unremarkable. No adrenal mass is identified. Both kidneys demonstrate cortical low-attenuation lesions consistent with cysts. There is a tiny nonobstructing calculus in the lower pole of the right kidney. Aorta is calcified but nonaneurysmal. The small and large bowel loops are normal caliber. There is occasional diverticula present but no evidence of acute diverticulitis. There is no free fluid or fluid collection. The bladder is unremarkable. Prostate is enlarged. Bony structures appear nonacute. IMPRESSION: 1. Bilateral renal cysts as well as tiny nonobstructing right renal calculus. 2. Uncomplicated diverticulosis. 3. Prostatomegaly. Dictated on workstation # [id number] Dict: 08/17/22 0818 Trans: 08/17/22 0838 [facility] [id number] Interpreted by: STEVEN PANG MD Electronically signed by: Short Stay Diagnosis Discharge Diagnosis-Short Stay Admission Diagnosis Urinary tract infection with intractable nausea and vomiting Final Discharge Diagnosis Sepsis due to urinary tract infection Conclusion Plan Patient was admitted due to sepsis from urinary tract infection. He was tachycardic with a leukocytosis and UA was positive for a urinary tract infection. His leukocytosis increased today and though he was alert and oriented x4 he was still somewhat confused regarding DME in his room. He family elected to leave AGAINST MEDICAL ADVICE. His son came to pick him up and we discussed with his son the concerns regarding discharge home for medical optimization. Son expresses understanding as does patient. Patient stated multiple times that he knew his rights and that we could not keep him here. He did sign AMA paperwork. Antibiotics were sent to his preferred pharmacy. I called and spoke with his primary care physician and informed him of the hospitalization and suboptimal discharge plan. Diagnosis/Problems Diagnosis/Problems (1) Sepsis (2) UTI (urinary tract infection) PHIL AYALA MD Aug 17, 2022 10:31
[2022-08-17] MEDS ORDERED: CEFD300C3 PO (11:13)
[2022-08-17] MEDS ORDERED: cefTRIAXone 2,000 MG/NS 50 ML IVPB IV SCH ×2 (22:00)
== END 2022-08-17 11:18 | disposition left against medical advice (07) ==
LOC: EDUNIT# 22:54 → ER 22:56 → 4TH 22:57 → UNDOADMOB 08-17 01:35 → 4TH 08-17 01:35 → UNDODISOB 08-17 11:18
PROVIDERS: ADMIT Internal Medicine; ATTEND Internal Medicine
DX: A41.9 Sepsis, unspecified organism (principal); N39.0 Urinary tract infection, site not specified; E11.65 Type 2 diabetes mellitus with hyperglycemia; E87.6 Hypokalemia; Z79.4 Long term (current) use of insulin
CPT/HCPCS: 36415; 74177; 80048; 80053; 81000; 82947; 83605; 83690; 83735; 85007; 85027; 86141; 87077; 87088; 87186; 96372; 96375; 96376; G0378

== ENCOUNTER 2022-12-10 12:46 | Emergency (ER) | payer MEDICARE, OTHER ==
[~2022-12-10] VITALS: Ht 177 cm; Wt 90.0 kg
[~2022-12-10 12:46] MED LIST changes: +CEFD300C3 PO; -MECL-149 PO; +MECL-291 PO
[2022-12-10] MEDS ORDERED: ONDANSETRON INJECTION 4 MG/2 ML (SDV) IVP ONE (13:00)
[2022-12-10] MEDS ORDERED: LACTATED RINGERS 1,000 ML 1,000 ML IV ONE (13:00)
[2022-12-10 13:05] LABS: BASOPHILS % (AUTO) 0 % (0-10); EOSINOPHILS % (AUTO) 0 % (0-10); HEMATOCRIT 37 % (40-54); HEMOGLOBIN 11.9 g/dL (13.3-17.7); LYMPHOCYTES # (AUTO) 0.5 10^3/uL (1.0-4.0); LYMPHOCYTES % (AUTO) 7 % (12-44); MEAN CORPUSCULAR HEMOGLOBIN 28 pg (25-34); MEAN CORPUSCULAR HGB CONC 32 g/dL (32-36); MEAN CORPUSCULAR VOLUME 87 fL (80-99); MONOCYTES # (AUTO) 0.5 10^3/uL (0.0-1.0); MONOCYTES % (AUTO) 6 % (0-12); NEUTROPHILS # (AUTO) 7.2 10^3/uL (1.8-7.8); NEUTROPHILS % (AUTO) 86 % (42-75); PLATELET COUNT 133 10^3/uL (130-400); WHITE BLOOD COUNT 8.3 10^3/uL (4.3-11.0)
--- NOTE | 2022-12-10 13:08 | ED General ---
General Chief Complaint: Abdominal/GI Problems Stated Complaint: DIARRHEA Nursing Triage Note: PT TO [facility] WITH CC OF KATERYNA FOR SEVERAL DAYS Source of Information: Patient, EMS Exam Limitations: No Limitations History of Present Illness Date Seen by Provider: Dec 10, 2022 Time Seen by Provider: 12:49 Initial Comments This 87-year-old gentleman presents to the emergency room with complaints of nausea, vomiting, and diarrhea for the past 6 to 7 days. He went to his orthopedic office last Sunday, December 04, for bilateral knee injections. He states he has felt ill ever since then. He is notably hypertensive and reports he was not able to take his blood pressure medication this morning due to nausea and vomiting. He has history of diverticulitis, gastroparesis, diabetes, and coronary artery disease. He denies any significant pain but is notably tender in the left lower quadrant. He has not been febrile. Dr. Dawit Rodriguez is his primary care provider. Allergies and Home Medications Allergies Coded Allergies: Sulfa (Sulfonamide Antibiotics) (Unverified Allergy, Severe, HIVES, SOA, 01/08/19) Patient Home Medication List Home Medication List Reviewed: Yes Amoxicillin/Potassium Clav (Amox Tr-K Clv 250-62.5/5 Susp) 250 Mg/5 Ml Susp.recon, 17 ML PO Q12H Prescribed by: DAWIT RODRIGUEZ on 11/26/20 0756 Aspirin (Aspir 81) 81 Mg Tablet.dr, 160 MG PO DAILY, (Reported) Entered as Reported by: LEA MARTINEZ on 01/08/19 152 Cefdinir (Cefdinir) 300 Mg Capsule, 300 MG PO BID Prescribed by: PHIL AYALA on 08/17/22 1113 Cod Liver Oil (Cod Liver Oil) 1 Each Capsule, 1 EACH PO DAILY, (Reported) Entered as Reported by: LEA MARTINEZ on 01/08/19 152 Cyanocobalamin (Vitamin B-12) (Vitamin B-12) 500 Mcg Tablet, 500 MCG PO DAILY, (Reported) Entered as Reported by: LEA MARTINEZ on 01/08/19 152 Erythromycin Stearate (Erythromycin Stearate) 250 Mg Tablet, 250 MG PO DAILY, (Reported) Entered as Reported by: LEA MARTINEZ on 01/08/19 1521 Hydrochlorothiazide (Hydrochlorothiazide) 25 Mg Tablet, 25 MG PO DAILY, (Reported) Entered as Reported by: LEA MARTINEZ on 01/08/19 152 Insulin Aspart (Novolog) 100 Unit/1 Ml Susp, 15 UNIT SQ AC, (Reported) Entered as Reported by: LEA MARTINEZ on 01/08/19 152 Insulin Glargine,Hum.rec.anlog (Lantus) 100 Unit/1 Ml Vial, 100 UNIT SQ, (Reported) Entered as Reported by: LEA MARTINEZ on 01/08/19 152 Lorazepam (Lorazepam) 0.5 Mg Tablet, 0.5 MG PO DAILY, (Reported) Entered as Reported by: LEA MARTINEZ on 01/08/19 152 Meclizine HCl (Meclizine HCl) 25 Mg Tablet, 25 MG PO DAILY, (Reported) Entered as Reported by: LEA MARTINEZ on 01/08/19 152 Omeprazole (Omeprazole) 20 Mg Tablet.dr, 20 MG PO DAILY, (Reported) Entered as Reported by: LEA MARTINEZ on 01/08/19 152 Ondansetron (Ondansetron Odt) 4 Mg Tab.rapdis, 4 MG PO Q6H PRN for NAUSEA-1ST LINE Prescribed by: DAWIT RODRIGUEZ on 11/26/20 0758 Rosuvastatin Calcium (Rosuvastatin Calcium) 20 Mg Tablet, 20 MG PO DAILY, (Reported) Entered as Reported by: LEA MARTINEZ on 01/08/191520 Review of Systems Review of Systems Constitutional: no symptoms reported EENTM: no symptoms reported Respiratory: no symptoms reported Cardiovascular: see HPI Gastrointestinal: see HPI Genitourinary: no symptoms reported Musculoskeletal: see HPI Skin: no symptoms reported Psychiatric/Neurological: No Symptoms Reported Hematologic/Lymphatic: No Symptoms Reported Immunological/Allergic: no symptoms reported Past Cgbhknd-Gdvtxc-Stcoob Hx Patient Social History Tobacco Use?: No Substance use?: No Alcohol Use?: No Immunizations Up To Date First/Initial COVID19 Vaccinat: 2020 Second COVID19 Vaccination Maurice: 2020 Third COVID19 Vaccination Date: 2020 Past Medical History Surgery/Hospitalization HX: PMH: HTN, HIGH CHOLESTEROL SX: GALLBLADDER, APPENDIX Surgeries: Yes (CATARACT SX) Appendectomy, Coronary Stent, Gallbladder Respiratory: No Cardiac: Yes (STENT) Coronary Artery Disease, Heart Attack, Hypertension Neurological: Yes (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 oz. 104.056019fx; 28.00 BMI Method:Stated General Appearance: No Apparent Distress, WD/WN HEENT: PERRL/EOMI, Normal ENT Inspection, Other (Oropharynx dry) Neck: Normal Inspection Respiratory: Normal Breath Sounds, No Accessory Muscle Use, No Respiratory Distress, Crackles (Right base, clearing with deep breathing) Cardiovascular: Regular Rate, Rhythm, No Edema, No Murmur Gastrointestinal: Normal Bowel Sounds, Soft; No Distended; Tenderness (Left lower quadrant) Extremity: Normal Inspection, No Pedal Edema Neurologic/Psychiatric: Alert, Oriented x3, No Motor/Sensory Deficits, Normal Mood/Affect Skin: Normal Color, Warm/Dry Progress/Results/Core Measures Suspected Sepsis SIRS Temperature: Pulse: 78 Respiratory Rate: 20 Laboratory Tests 12/10/22 12:55: White Blood Count 8.3 Blood Pressure 177 /112 Mean: 133 Laboratory Tests 12/10/22 12:55: Creatinine 0.95, Platelet Count 133, Total Bilirubin 0.7 Results/Orders Lab Results Laboratory Tests Test 12/10/22 12:55 12/10/22 14:42 Range/Units White Blood Count 8.3 4.3-11.0 10^3/uL Red Blood Count 4.24 L 4.30-5.52 10^6/uL Hemoglobin 11.9 L 13.3-17.7 g/dL Hematocrit 37 L 40-54 % Mean Corpuscular Volume 87 80-99 fL Mean Corpuscular Hemoglobin 28 25-34 pg Mean Corpuscular Hemoglobin Concent 32 32-36 g/dL Red Cell Distribution Width 14.5 10.0-14.5 % Platelet Count 133 130-400 10^3/uL Mean Platelet Volume 10.0 9.0-12.2 fL Immature Granulocyte % (Auto) 1 % Neutrophils (%) (Auto) 86 H 42-75 % Lymphocytes (%) (Auto) 7 L 12-44 % Monocytes (%) (Auto) 6 0-12 % Eosinophils (%) (Auto) 0 0-10 % Basophils (%) (Auto) 0 0-10 % Neutrophils # (Auto) 7.2 1.8-7.8 10^3/uL Lymphocytes # (Auto) 0.5 L 1.0-4.0 10^3/uL Monocytes # (Auto) 0.5 0.0-1.0 10^3/uL Eosinophils # (Auto) 0.0 0.0-0.3 10^3/uL Basophils # (Auto) 0.0 0.0-0.1 10^3/uL Immature Granulocyte # (Auto) 0.0 0.0-0.1 10^3/uL Neutrophils % (Manual) 89 % Lymphocytes % (Manual) 6 % Monocytes % (Manual) 5 % [place] Cells SLIGHT Sodium Level 139 135-145 MMOL/L Potassium Level 3.7 3.6-5.0 MMOL/L Chloride Level 107 98-107 MMOL/L Carbon Dioxide Level 19 L 21-32 MMOL/L Anion Gap 13 5-14 MMOL/L Blood Urea Nitrogen 27 H 7-18 MG/DL Creatinine 0.95 0.60-1.30 MG/DL Estimat Glomerular Filtration Rate 78 BUN/Creatinine Ratio 28 Glucose Level 268 H 70-105 MG/DL Calcium Level 8.9 8.5-10.1 MG/DL Corrected Calcium 9.4 8.5-10.1 MG/DL Magnesium Level 2.0 1.6-2.4 MG/DL Total Bilirubin 0.7 0.1-1.0 MG/DL Aspartate Amino Transf (AST/SGOT) 28 5-34 U/L Alanine Aminotransferase (ALT/SGPT) 90 H 0-55 U/L Alkaline Phosphatase 118 40-136 U/L C-Reactive Protein High Sensitivity 11.37 H 0.00-0.50 MG/DL Total Protein 6.5 6.4-8.2 GM/DL Albumin 3.4 3.2-4.5 GM/DL Lipase 9 8-78 U/L Influenza Type A (RT-PCR) Not Detected Not Detecte Influenza Type B (RT-PCR) Not Detected Not Detecte SARS-CoV-2 RNA (RT-PCR) Not Detected Not Detecte Urine Color YELLOW Urine Clarity CLEAR Urine pH 6.0 5-9 Urine Specific [place] 1.015 L 1.016-1.022 Urine Protein 1+ H NEGATIVE Urine Glucose (UA) 3+ H NEGATIVE Urine Ketones 2+ H NEGATIVE Urine Nitrite NEGATIVE NEGATIVE Urine Bilirubin NEGATIVE NEGATIVE Urine Urobilinogen 0.2 < = 1.0 MG/DL Urine Leukocyte Esterase NEGATIVE NEGATIVE Urine RBC (Auto) 2+ H NEGATIVE Urine RBC RARE /HPF Urine WBC 2-5 /HPF Urine Squamous Epithelial Cells 2-5 /HPF Urine Crystals NONE /LPF Urine Bacteria TRACE /HPF Urine Casts NONE /LPF Urine Mucus NEGATIVE /LPF Urine Culture Indicated NO My Orders Orders - ALBERTO POWERS MD Cbc And Automated Diff (12/10/22 12:56) Comprehensive Metabolic Panel (12/10/22 12:56) Hs C Reactive Protein (12/10/22 12:56) Lipase (12/10/22 12:56) Magnesium (12/10/22 12:56) Ua Culture If Indicated (12/10/22 12:56) Ed Iv/Invasive Line Start (12/10/22 12:56) Lactated Ringers 1,000 Ml (Lactated Ring (12/10/22 13:00) Ondansetron Injection (Ondansetron Inj (12/10/22 13:00) Covid 19 Inhouse Test (12/10/22 12:57) Influenza A And B By Pcr (12/10/22 12:57) Manual Differential (12/10/22 12:55) Ct Abdomen/Pelvis W (12/10/22 13:53) Iohexol Injection (Omnipaque 350 Mg/Ml 1 (12/10/22 14:15) Received Contrast (Hold Metformin- Contr (12/10/22 14:15) Ns (Ivpb) 100 Ml (Sodium Chloride 0.9% 1 (12/10/22 14:15) Medications Given in ED Current Medications Medications Dose Ordered Sig/Ayaz Route Start Time Stop Time Status Last Admin Dose Admin Iohexol 100 ml ONCE ONCE IV 12/10/22 14:15 12/10/22 14:16 DC 12/10/22 14:18 80 ML Lactated Ringer's 1,000 ml @ 0 mls/hr Q0M ONCE IV 12/10/22 13:00 12/10/22 13:01 DC 12/10/22 13:02 1,000 MLS/HR Ondansetron HCl 4 mg ONCE ONCE IVP 12/10/22 13:00 12/10/22 13:01 DC 12/10/22 13:02 4 MG Sodium Chloride 100 ml ONCE ONCE IV 12/10/22 14:15 12/10/22 14:16 DC 12/10/22 14:18 80 ML Vital Signs/I&O 12/10/22 12:50 Temp 35.6 Pulse 78 Resp 20 B/P (MAP) 177/112 (133) Pulse Ox 97 O2 Delivery Room Air Capillary Refill : Less Than 3 Seconds Blood Pressure Mean: 133 Progress Note : Time: 13:06 Progress Note Patient was interviewed and examined upon arrival. Report was received from EMS staff. Patient was still nauseous after receiving 4 mg of Zofran from EMS. An additional 4 mg dose is being given now. Patient appears to have dry mucous membranes. A liter of LR is being infused. We will monitor his blood pressure and treat acutely if necessary. Labs are pending at this time. Departure Impression Primary Impression: Nausea vomiting and diarrhea Additional Impression: Left lower quadrant abdominal pain Disposition: HOME, SELF-CARE Condition: Improved Departure-Patient Inst. Decision time for Depature: 16:27 Referrals: DAWIT RODRIGUEZ MD (PCP/Family) Primary Care Physician Patient Instructions: Abdominal Pain, Adult ED, Diarrhea in adolescents and adults Add. Discharge Instructions: Your work-up in the emergency room revealed no serious abnormalities. The CT scan was unremarkable. Labs were relatively unremarkable. Blood sugar was 268. Start with a clear liquid diet and gradually advance your diet with small quantities of bland food as tolerated. Avoid dairy, fatty, and greasy foods for at least 48 hours after your diarrhea resolves. Take Zofran (ondansetron) under the tongue every 4 hours as needed for nausea and vomiting. Take Levsin (hyoscyamine) under the tongue every 4 hours as needed for diarrhea or bowel cramping. Return to care if you have worsening symptoms despite following these instructions. Keep your follow-up appointment with Dr. Rodriguez. All discharge instructions reviewed with patient and/or family. Voiced understanding. Scripts Hyoscyamine Sulfate (Levsin-Sl) 0.125 Mg Tab.subl 0.125 MG SL Q4H PRN for CRAMPS, #10 TAB 0 Refills For bowel cramping or diarrhea. Prov: ALBERTO POWERS MD 12/10/22 Ondansetron (Ondansetron Odt) 4 Mg Tab.rapdis 4 MG SL Q4H PRN for NAUSEA/VOMITING, #10 TAB Prov: ALBERTO POWERS MD 12/10/22 Copy Copies To 1: DAWIT RODRIGUEZ MD, JOSHUA T MD Dec 10, 2022 13:08
[2022-12-10 13:21] LABS: ALBUMIN 3.4 GM/DL (3.2-4.5); POTASSIUM 3.7 MMOL/L (3.6-5.0)
[2022-12-10 13:22] LABS: CALCIUM 8.9 MG/DL (8.5-10.1)
[2022-12-10 13:24] LABS: TOTAL PROTEIN 6.5 GM/DL (6.4-8.2)
[2022-12-10 13:25] LABS: BILIRUBIN,TOTAL 0.7 MG/DL (0.1-1.0)
[2022-12-10 13:27] LABS: CREATININE SERUM 0.95 MG/DL (0.60-1.30)
[2022-12-10 13:32] LABS: BURR CELLS SLIGHT; LYMPHOCYTES % (MANUAL) 6 %; MONOCYTES % (MANUAL) 5 %; NEUTROPHILS % (MANUAL) 89 %
[2022-12-10] MEDS ORDERED: NS 100 ML (IVPB) BAG IV ONE (14:15)
[2022-12-10] MEDS ORDERED: IOHEXOL 350 MG/ML 100 ML (OMNIPAQUE 350) VIAL IV ONE (14:15)
[2022-12-10] MEDS ORDERED: HOLD METFORMIN - RECEIVED CONTRAST 20 ML VIAL IV SCH (14:15)
--- NOTE | 2022-12-10 14:38 | Diagnostic Imaging Report ---
CT ABDOMEN/PELVIS W. TECHNIQUE: Multiple contiguous axial images were obtained through the abdomen and pelvis after administration of intravenous contrast. All CT scans use one or more of the following dose optimizing techniques: automated exposure control, MA and/or KvP adjustment based on patient size and exam type or iterative reconstruction. INDICATION: Left lower quadrant pain. COMPARISON: 08/16/2022. FINDINGS: Lower chest: Cardiomegaly without pericardial effusion. Severe coronary calcifications are unchanged. Peritoneum: No free intraperitoneal air or fluid. Liver and biliary system: The liver is normal. Cholecystectomy. Mild intrahepatic and extrahepatic biliary duct dilation is stable and due to reservoir effect following cholecystectomy. Spleen and Pancreas: Spleen is normal. The pancreas enhances normally without mass lesion or peripancreatic inflammatory changes. Adrenals: Normal. tract: No hydronephrosis has developed. Nonobstructing 2 mm stone in the lower pole of the right kidney is stable. Bilateral renal cysts are similar. Stable geographic region of increased induration within the pararenal fat at the lower pole of the right kidney is stable and could represent sequela of a ruptured cyst or fatty necrosis. Urinary bladder is normally filled. Stable prostamegaly. GI tract: Stomach is decompressed. No bowel obstruction. No pericolonic inflammatory changes. Appendix is not seen but there are no features of acute appendicitis. Vasculature and Lymph nodes: Normal caliber aorta has moderate atherosclerosis. No abdominal or pelvic lymphadenopathy. Musculoskeletal: No concerning osseous lesion. IMPRESSION: No acute obstructive or inflammatory process. Specifically, there is no diverticulitis. Dictated by: Dictated on workstation # [id number]
[2022-12-10 14:58] LABS: CLARITY,URINE CLEAR; COLOR,URINE YELLOW; GLUCOSE, URINE (UA) 3+ (NEGATIVE); PROTEIN,URINE 1+ (NEGATIVE)
[2022-12-10 14:59] LABS: BACTERIA,URINE TRACE /HPF; BILIRUBIN,URINE NEGATIVE (NEGATIVE); KETONES,URINE 2+ (NEGATIVE); LEUKOCYTE ESTERASE ,URINE NEGATIVE (NEGATIVE); NITRITE,URINE NEGATIVE (NEGATIVE); RBC,URINE RARE /HPF
[2022-12-10] MEDS ORDERED: ONDA4TAB11 SL (16:28)
[2022-12-10] MEDS ORDERED: HYOS0.1283 SL (16:28)
[2022-12-10 16:37] VITALS: BP 127/86
== END 2022-12-10 16:40 | disposition home or self-care (01) ==
LOC: EDUNIT# 12:46 → ER 12:47
DX: R11.2 Nausea with vomiting, unspecified (principal); R19.7 Diarrhea, unspecified; R10.32 Left lower quadrant pain; I10 Essential (primary) hypertension; Z79.899 Other long term (current) drug therapy
CPT/HCPCS: 36415; 74177; 80053; 81000; 83690; 83735; 85007; 85027; 86141; 87636; 96361; 96374

== ENCOUNTER 2022-12-25 13:56 | Inpatient (IN) | payer OTHER ==
[~2022-12-25] VITALS: Ht 177.8 cm; Wt 90.0 kg
[~2022-12-25 13:56] MED LIST changes: +HYOS0.1283 SL; +ONDA4TAB11 SL
[2022-12-25] MEDS ORDERED: ONDANSETRON INJECTION 4 MG/2 ML (SDV) ONE (14:11)
[2022-12-25 14:26] LABS: BASOPHILS % (AUTO) 0 % (0-10); EOSINOPHILS % (AUTO) 0 % (0-10); HEMATOCRIT 38 % (40-54); HEMOGLOBIN 12.2 g/dL (13.3-17.7); LYMPHOCYTES % (AUTO) 12 % (12-44); MEAN CORPUSCULAR HEMOGLOBIN 28 pg (25-34); MEAN CORPUSCULAR HGB CONC 32 g/dL (32-36); MEAN CORPUSCULAR VOLUME 88 fL (80-99); MEAN PLATELET VOLUME 9.5 fL (9.0-12.2); MONOCYTES # (AUTO) 0.5 10^3/uL (0.0-1.0); MONOCYTES % (AUTO) 6 % (0-12); NEUTROPHILS # (AUTO) 7.3 10^3/uL (1.8-7.8); NEUTROPHILS % (AUTO) 82 % (42-75); PLATELET COUNT 324 10^3/uL (130-400); WHITE BLOOD COUNT 8.9 10^3/uL (4.3-11.0)
--- NOTE | 2022-12-25 14:27 | ED General ---
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 GIVEN 4MG ZOFRAN BY EMS. PT STATES HE TOOK MILK OF MAGNESIA THIS MORNING FOR CONSTIPATION Source of Information: Patient Exam Limitations: No Limitations History of Present Illness Date Seen by Provider: Dec 25, 2022 Time Seen by Provider: 14:13 Initial Comments Here with report of nausea, vomiting and diarrhea that started about 2 hours ago. Did have some milk of magnesia this morning. He was able to eat a hamburger this afternoon and after that is when he started having the nausea and vomiting. Took the milk of magnesia for constipation earlier. Denies chest pain or breathing problems complains of feeling quite weak. EMS did bring patient and and they did give 4 mg of ondansetron. Patient is still asking for nausea medicine and is still having episodes of emesis. No blood in the urine or stool. Reports decreased urination. States that his urine is dark.. Timing/Duration: 1-3 Hours Severity: Moderate Associated Systoms: No Chest Pain, No Cough, No Fever/Chills; Nausea/Vomiting; No Shortness of Air; Weakness Allergies and Home Medications Allergies Coded Allergies: Sulfa (Sulfonamide Antibiotics) (Unverified Allergy, Severe, HIVES, SOA, 01/08/19) Patient Home Medication List Home Medication List Reviewed: Yes Amoxicillin/Potassium Clav (Amox Tr-K Clv 250-62.5/5 Susp) 250 Mg/5 Ml Susp.recon, 17 ML PO Q12H Prescribed by: EPIFANIO RODRIGUEZ on 11/26/20 0756 Aspirin (Aspir 81) 81 Mg Tablet.dr, 160 MG PO DAILY, (Reported) Entered as Reported by: LEA MARTINEZ on 01/08/19 1521 Cefdinir (Cefdinir) 300 Mg Capsule, 300 MG PO BID Prescribed by: PHIL AYALA on 08/17/22 1113 Cod Liver Oil (Cod Liver Oil) 1 Each Capsule, 1 EACH PO DAILY, (Reported) Entered as Reported by: LEA MARTINEZ on 01/08/19 1521 Cyanocobalamin (Vitamin B-12) (Vitamin B-12) 500 Mcg Tablet, 500 MCG PO DAILY, (Reported) Entered as Reported by: LEA MARTINEZ on 01/08/19 152 Erythromycin Stearate (Erythromycin Stearate) 250 Mg Tablet, 250 MG PO DAILY, (Reported) Entered as Reported by: LEA MARTINEZ on 01/08/19 152 Hydrochlorothiazide (Hydrochlorothiazide) 25 Mg Tablet, 25 MG PO DAILY, (Reported) Entered as Reported by: LEA MARTINEZ on 01/08/19 152 Hyoscyamine Sulfate (Levsin-Sl) 0.125 Mg Tab.subl, 0.125 MG SL Q4H PRN for CRAMPS Prescribed by: ALBERTO GOMES on 12/10/22 1628 Insulin Aspart (Novolog) 100 Unit/1 Ml Susp, 15 UNIT SQ AC, (Reported) Entered as Reported by: LEA MARTINEZ on 01/08/19 152 Insulin Glargine,Hum.rec.anlog (Lantus) 100 Unit/1 Ml Vial, 100 UNIT SQ, (Reported) Entered as Reported by: LEA MARTINEZ on 01/08/19 152 Lorazepam (Lorazepam) 0.5 Mg Tablet, 0.5 MG PO DAILY, (Reported) Entered as Reported by: LEA MARTINEZ on 01/08/19 152 Meclizine HCl (Meclizine HCl) 25 Mg Tablet, 25 MG PO DAILY, (Reported) Entered as Reported by: LEA MARTINEZ on 01/08/19 152 Omeprazole (Omeprazole) 20 Mg Tablet.dr, 20 MG PO DAILY, (Reported) Entered as Reported by: LEA MARTINEZ on 01/08/19 152 Ondansetron (Ondansetron Odt) 4 Mg Tab.rapdis, 4 MG PO Q6H PRN for NAUSEA-1ST LINE Prescribed by: EPIFANIO RODRIGUEZ on 11/26/20 0758 Ondansetron (Ondansetron Odt) 4 Mg Tab.rapdis, 4 MG SL Q4H PRN for NAUSEA/VOMITING Prescribed by: ALBERTO GOMES on 12/10/22 1628 Rosuvastatin Calcium (Rosuvastatin Calcium) 20 Mg Tablet, 20 MG PO DAILY, (Reported) Entered as Reported by: LEA MARTINEZ on 01/08/19 1521 Review of Systems Review of Systems Constitutional: see HPI, chills; No fever; weakness EENTM: No nose congestion, No throat pain Respiratory: No cough, No short of breath Cardiovascular: No chest pain Gastrointestinal: diarrhea, nausea, vomiting Genitourinary: see HPI Musculoskeletal: muscle weakness Skin: no symptoms reported Past Bxxuuoo-Tjhnqg-Hmjtcl Hx Patient Social History Tobacco Use?: No Use of E-Cig and/or Vaping dev: No Substance use?: No Alcohol Use?: No Pt feels they are or have been: No Immunizations Up To Date First/Initial COVID19 Vaccinat: 2020 Second COVID19 Vaccination Maurice: 2020 Third COVID19 Vaccination Date: 2020 Past Medical History Surgery/Hospitalization HX: PMH: HTN, HIGH CHOLESTEROL SX: GALLBLADDER, APPENDIX Surgeries: Yes (CATARACT SX) Appendectomy, Coronary Stent, Gallbladder Respiratory: No Cardiac: Yes (STENT) Coronary Artery Disease, Heart Attack, Hypertension Neurological: Yes (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; CVA w LT SIDE FACIAL DROOP) Stroke Reproductive Disorders: No Genitourinary: No Gastrointestinal: Yes (DIABETIC GASTROPARESIS ) Diverticulosis Musculoskeletal: Yes Arthritis Endocrine: Yes Diabetes, Insulin dep Cancer: No Psychosocial: Yes Anxiety Blood Disorders: No Family Medical History Reviewed Nursing Family Hx No Pertinent Family Hx Physical Exam-Suspected Sepsis Physical Exam Vital Signs Vital Signs - First Documented 12/25/22 14:01 Temp 35.5 Pulse 107 Resp 20 B/P (MAP) 133/80 (97) Pulse Ox 95 O2 Delivery Room Air Capillary Refill : Less Than 3 Seconds Blood Pressure Mean: 97 Height, Weight, BMI Height: 5'10" Weight: 230lbs. oz. 104.552509iw; BMI Method:Stated General Appearance: No Apparent Distress, WD/WN HEENT: PERRL/EOMI, Pharynx Normal Neck: Non Tender, Supple Respiratory: Lungs Clear, Normal Breath Sounds Cardiovascular: No Murmur, Tachycardia Gastrointestinal: Non Tender, Soft Extremity: Normal Range of Motion, Non Tender, No Calf Tenderness, No Pedal Edema Neurologic/Psychiatric: Alert, Oriented x3, Other (Appears grossly weak) Skin: normal color, warm/dry Focused Exam Lactate Level 12/25/22 14:05: Lactic Acid Level 2.04*H 11/20/23 16:00: Lactic Acid Level 1.62 Lactic Acid Level Laboratory Tests Test 12/25/22 14:05 12/25/22 16:00 Lactic Acid Level 2.04 MMOL/L (0.50-2.00) *H 1.62 MMOL/L (0.50-2.00) Progress/Results/Core Measures Suspected Sepsis SIRS Temperature: Pulse: 107 Respiratory Rate: 20 Laboratory Tests 12/25/22 14:05: White Blood Count 8.9 Blood Pressure 133 /80 Mean: 97 12/25/22 14:05: Lactic Acid Level 2.04*H 12/25/22 16:00: Lactic Acid Level 1.62 Laboratory Tests 12/25/22 14:05: Creatinine 1.09, INR Comment 1.0, Platelet Count 324, Total Bilirubin 0.6 Results/Orders Lab Results Laboratory Tests Test 12/25/22 14:05 12/25/22 15:32 12/25/22 16:00 12/25/22 16:01 Range/Units White Blood Count 8.9 4.3-11.0 10^3/uL Red Blood Count 4.36 4.30-5.52 10^6/uL Hemoglobin 12.2 L 13.3-17.7 g/dL Hematocrit 38 L 40-54 % Mean Corpuscular Volume 88 80-99 fL Mean Corpuscular Hemoglobin 28 25-34 pg Mean Corpuscular Hemoglobin Concent 32 32-36 g/dL Red Cell Distribution Width 14.1 10.0-14.5 % Platelet Count 324 130-400 10^3/uL Mean Platelet Volume 9.5 9.0-12.2 fL Immature Granulocyte % (Auto) 0 % Neutrophils (%) (Auto) 82 H 42-75 % Lymphocytes (%) (Auto) 12 12-44 % Monocytes (%) (Auto) 6 0-12 % Eosinophils (%) (Auto) 0 0-10 % Basophils (%) (Auto) 0 0-10 % Neutrophils # (Auto) 7.3 1.8-7.8 10^3/uL Lymphocytes # (Auto) 1.0 1.0-4.0 10^3/uL Monocytes # (Auto) 0.5 0.0-1.0 10^3/uL Eosinophils # (Auto) 0.0 0.0-0.3 10^3/uL Basophils # (Auto) 0.0 0.0-0.1 10^3/uL Immature Granulocyte # (Auto) 0.0 0.0-0.1 10^3/uL Prothrombin Time 13.8 12.2-14.7 SEC INR Comment 1.0 0.8-1.4 Activated Partial Thromboplast Time 25 24-35 SEC Sodium Level 138 135-145 MMOL/L Potassium Level 3.1 L 3.6-5.0 MMOL/L Chloride Level 102 98-107 MMOL/L Carbon Dioxide Level 23 21-32 MMOL/L Anion Gap 13 5-14 MMOL/L Blood Urea Nitrogen 20 H 7-18 MG/DL Creatinine 1.09 0.60-1.30 MG/DL Estimat Glomerular Filtration Rate 67 BUN/Creatinine Ratio 18 Glucose Level 173 H 70-105 MG/DL Lactic Acid Level 2.04 *H 1.62 0.50-2.00 MMOL/L Calcium Level 9.3 8.5-10.1 MG/DL Corrected Calcium 9.5 8.5-10.1 MG/DL Total Bilirubin 0.6 0.1-1.0 MG/DL Aspartate Amino Transf (AST/SGOT) 12 5-34 U/L Alanine Aminotransferase (ALT/SGPT) 9 0-55 U/L Alkaline Phosphatase 77 40-136 U/L Troponin I < 0.028 <0.028 NG/ML C-Reactive Protein High Sensitivity 1.64 H 0.00-0.50 MG/DL Total Protein 7.0 6.4-8.2 GM/DL Albumin 3.8 3.2-4.5 GM/DL Influenza Type A (RT-PCR) Not Detected Not Detecte Influenza Type B (RT-PCR) Not Detected Not Detecte SARS-CoV-2 RNA (RT-PCR) Not Detected Not Detecte Glucometer 110 70-110 MG/DL Test 12/25/22 16:43 Range/Units Urine Color YELLOW Urine Clarity CLEAR Urine pH 7.0 5-9 Urine Specific [place] 1.025 H 1.016-1.022 Urine Protein 1+ H NEGATIVE Urine Glucose (UA) NEGATIVE NEGATIVE Urine Ketones TRACE H NEGATIVE Urine Nitrite POSITIVE H NEGATIVE Urine Bilirubin NEGATIVE NEGATIVE Urine Urobilinogen 0.2 < = 1.0 MG/DL Urine Leukocyte Esterase 2+ H NEGATIVE Urine RBC (Auto) TRACE H NEGATIVE Urine RBC 0-2 /HPF Urine WBC 25-50 H /HPF Urine Squamous Epithelial Cells NONE /HPF Urine Crystals NONE /LPF Urine Bacteria LARGE H /HPF Urine Casts NONE /LPF Urine Mucus NEGATIVE /LPF Urine Culture Indicated CULTURE PENDING My Orders Orders - JAN BAHENA MD Ondansetron Injection (Ondansetron Inj (12/25/22 14:11) Hs C Reactive Protein (12/25/22 14:18) Ed Iv/Invasive Line Start (12/25/22 14:18) Ns Iv 500 Ml (Ns Iv 500 Ml) (12/25/22 14:30) Cbc And Automated Diff (12/25/22 14:18) Comprehensive Metabolic Panel (12/25/22 14:18) Blood Culture (12/25/22 14:18) Sputum Culture (12/25/22 14:18) Urinalysis (12/25/22 14:18) Urine Culture (12/25/22 14:18) Protime With Inr (12/25/22 14:18) Partial Thromboplastin Time (12/25/22 14:18) Chest 1 View, Ap/Pa Only (12/25/22 14:18) Troponin I [place] (12/25/22 14:18) Vital Signs Adult Sepsis Patie Q15M (12/25/22 14:18) O2 (12/25/22 14:18) Remove Rings In Anticipation O (12/25/22 14:18) Lactic Acid Analyzer (12/25/22 14:18) Influenza A And B By Pcr (12/25/22 15:27) Covid 19 Inhouse Test (12/25/22 15:27) Ns Iv 500 Ml (Ns Iv 500 Ml) (12/25/22 15:30) Accucheck Stat ONCE (12/25/22 16:04) Ceftriaxone Iv/Im (Ceftriaxone Iv/Im) (12/25/22 17:11) Medications Given in ED Current Medications Medications Dose Ordered Sig/Ayaz Route Start Time Stop Time Status Last Admin Dose Admin Ondansetron HCl 4 mg STK-MED ONCE .ROUTE 12/25/22 14:11 12/25/22 14:15 DC 12/25/22 14:29 4 MG Sodium Chloride 500 ml @ 0 mls/hr Q0M ONCE IV 12/25/22 14:30 12/25/22 14:31 DC 12/25/22 14:48 0 MLS/HR Sodium Chloride 500 ml @ 0 mls/hr Q0M ONCE IV 12/25/22 15:30 12/25/22 15:31 DC 12/25/22 15:36 0 MLS/HR Vital Signs/I&O 12/25/22 14:01 Temp 35.5 Pulse 107 Resp 20 B/P (MAP) 133/80 (97) Pulse Ox 95 O2 Delivery Room Air Capillary Refill : Less Than 3 Seconds Blood Pressure Mean: 97 Progress Note : Progress Note Seen and evaluated. IV by EMS. Patient still complaining of nausea so Zofran 4 mg IV ordered. Given his illness and and he can/weak appearance, we will go ahead and initiate sepsis protocol. Normal saline 500 mL bolus. We will get chest x-ray, EKG, labs including CBC, CMP, CRP, UA, urine culture, troponin, blood cultures and lactic acid. Monitor patient. Differential diagnosis includes sepsis, UTI, pneumonia, GI illness, electrolyte abnormality, dehydration, cardiac event 1532: I have reviewed chest x-ray and do not see any obvious infiltrate on my interpretation. CBC shows slightly low hemoglobin but otherwise no significant white count. CMP does show elevated glucose and low potassium with normal serum creatinine. Lactic acid is elevated at greater than 2 and CRP is slightly elevated. We are pending UA. I will go ahead and initiate COVID and influenza screening and we are repeating normal saline 500 mL bolus as he has not been able to urinate yet. His vomiting has settled down but he still looks quite peaked. Monitor patient. 1627: Patient reports that he believes his blood sugar is low. It was checked and it was 101. He states that low for him and he would like to try something to drink. Since he is wanting to try something to drink, we will give juice and see if he tolerates a p.o. challenge. Repeat lactic acid is normal. Screens are negative. We are still pending UA. Monitor patient. 1712: Patient has nitrite positive urinary tract infection. Given his diabetes status and the nausea and vomiting he has had as well as the several days of symptoms, I believe admission is indicated. I did discuss the case with Dr. Mcfadden. I have reviewed previous chart and he has history of [place] UTI that is sensitive to the ceftriaxone. We will initiate Rocephin [address] Mcfadden has excepted the patient for admission, inpatient status on the hospitalist service. I did discuss this with the patient and he agrees to plan. Patient request full code. Patient does have findings of sepsis with UTI with infective symptoms, elevated lactic acid and tachycardia but has not had findings of septic shock or severe sepsis requiring high-volume fluid resuscitation. ECG Initial ECG Impression Date: Dec 25, 2022 Initial ECG Impression Time: 14:13 Initial ECG Rate: 98 Initial ECG Rhythm: Normal Sinus Comment Sinus rhythm with normal axis. Tachycardic rate. No evidence of ST elevation OR. Interpreted by me. PVC noted. Diagnostic Imaging Diagonstic Imaging: Xray Plain Films/CT/US/NM/MRI: chest Comments [facility] [place], [place] NAME: JASSI COLE [facility] REC#: [id number] PT STATUS: REG ER : 1935 PHYSICIAN: JAN BAHENA MD ADMIT DATE: 12/25/22/ER Draft Date of Exam:12/25/22 CHEST 1 VIEW, AP/PA ONLY INDICATION: Nausea, vomiting, diarrhea, and pain. COMPARISON: Exam is compared to 03/28/2019. FINDINGS: No free air beneath the diaphragms. No focal consolidation, failure, effusion, or pneumothorax. IMPRESSION: No acute abnormality at frontal chest film. Dictated on workstation # [id number] Dict: 12/25/22 1508 Trans: 12/25/22 1517 [id number] Interpreted by: HANNAH GARDUNO Electronically signed by: Departure Communication (Admissions) Time/Spoke to Admitting Phy: 17:10 Impression Primary Impression: Sepsis due to urinary tract infection Disposition: ADMITTED INPATIENT Condition: Stable Admissions Decision to Admit Reason: Admit from ER (General) Decision to Admit/Date: Dec 25, 2022 Time/Decision to Admit Time: 17:10 Departure-Patient Inst. Referrals: EPIFANIO RODRIGUEZ MD (PCP/Family) Primary Care Physician JAN BAHENA MD Dec 25, 2022 14:27
[2022-12-25 14:28] LABS: ALBUMIN 3.8 GM/DL (3.2-4.5); CHLORIDE 102 MMOL/L (98-107)
[2022-12-25 14:29] LABS: POTASSIUM 3.1 MMOL/L (3.6-5.0); SODIUM 138 MMOL/L (135-145)
[2022-12-25 14:30] LABS: CALCIUM 9.3 MG/DL (8.5-10.1)
[2022-12-25] MEDS ORDERED: NS IV 500 ML 500 ML IV ONE ×2 (14:30→15:30)
[2022-12-25 14:31] LABS: GLUCOSE 173 MG/DL (70-105); PROTHROMBIN TIME PATIENT 13.8 SEC (12.2-14.7)
[2022-12-25 14:32] LABS: CARBON DIOXIDE 23 MMOL/L (21-32)
[2022-12-25 14:33] LABS: BILIRUBIN,TOTAL 0.6 MG/DL (0.1-1.0)
[2022-12-25 14:34] LABS: ALKALINE PHOSPHATASE 77 U/L (40-136)
[2022-12-25 14:35] LABS: CREATININE SERUM 1.09 MG/DL (0.60-1.30); GFR ESTIMATED 67
[2022-12-25 14:36] LABS: BUN/CREATININE RATIO 18
[2022-12-25 14:38] LABS: ALANINE AMINOTRANSFERASE 9 U/L (0-55)
--- NOTE | 2022-12-25 15:17 | Diagnostic Imaging Report ---
INDICATION: Nausea, vomiting, diarrhea, and pain. COMPARISON: Exam is compared to 03/28/2019. FINDINGS: No free air beneath the diaphragms. No focal consolidation, failure, effusion, or pneumothorax. IMPRESSION: No acute abnormality at frontal chest film. Dictated by: Dictated on workstation # [id number]
[2022-12-25 17:00] LABS: CLARITY,URINE CLEAR; COLOR,URINE YELLOW
[2022-12-25 17:01] LABS: BACTERIA,URINE LARGE /HPF; BILIRUBIN,URINE NEGATIVE (NEGATIVE); GLUCOSE, URINE (UA) NEGATIVE (NEGATIVE); KETONES,URINE TRACE (NEGATIVE); LEUKOCYTE ESTERASE ,URINE 2+ (NEGATIVE); NITRITE,URINE POSITIVE (NEGATIVE); PROTEIN,URINE 1+ (NEGATIVE); RBC,URINE 0-2 /HPF; WBC,URINE 25-50 /HPF
[2022-12-25] MEDS ORDERED: cefTRIAXone IV/IM 1,000 MG in NS (IVPB) 50 ML 50 ML IV STA (17:11)
[2022-12-25] MEDS ORDERED: ONDANSETRON INJECTION 4 MG/2 ML (SDV) IV PRN (17:30)
[2022-12-25] MEDS ORDERED: LACTULOSE SYRUP 10GM/15ML 30ML UDC PO PRN (17:30)
[2022-12-25] MEDS ORDERED: BISACODYL 10 MG SUPPOSITORY PR PRN (17:30)
[2022-12-25] MEDS ORDERED: MILK OF MAGNESIA 400 MG/5 ML 30 ML UDC PO PRN (17:30)
[2022-12-25] MEDS ORDERED: CALCIUM CARBONATE 500 MG CHEW TABLET PO PRN (17:30)
[2022-12-25] MEDS ORDERED: ACETAMINOPHEN 325 MG TABLET PO PRN (17:30)
[2022-12-25] MEDS ORDERED: ONDANSETRON 4 MG ORAL DISSOLVE TABLET PO PRN (17:30)
[2022-12-25] MEDS ORDERED: ANTACID SUSPENSION 30 ML UDC PO PRN (17:30)
[2022-12-25 17:55] VITALS: BP 159/76
[2022-12-25] MEDS ORDERED: TAMSULOSIN 0.4 MG (FLOMAX) CAP PO SCH (18:00)
[2022-12-25] MEDS ORDERED: ENOXAPARIN 40 MG/0.4 ML SYRINGE SQ SCH (18:00)
[2022-12-25] MEDS: NS IV 1000 ML 1,000 ML IV SCH (18:15)
[2022-12-25] MEDS: SENNOSIDES 8.6 MG TABLET PO SCH (19:51)
[2022-12-25] MEDS: DOCUSATE SODIUM 100 MG CAPSULE PO SCH (19:51)
[2022-12-25] MEDS: MELATONIN 3 MG TABLET PO PRN (19:52)
[2022-12-25] MEDS: ALPRAZolam 0.5 MG TABLET PO PRN (19:52)
[2022-12-25 20:13] VITALS: BP 133/64
[2022-12-25 23:18] VITALS: BP 110/54
[2022-12-26 03:17] VITALS: BP 127/65
[2022-12-26 05:45] LABS: BASOPHILS % (AUTO) 1 % (0-10); EOSINOPHILS % (AUTO) 1 % (0-10); HEMATOCRIT 30 % (40-54); HEMOGLOBIN 9.8 g/dL (13.3-17.7); LYMPHOCYTES % (AUTO) 18 % (12-44); MEAN CORPUSCULAR HEMOGLOBIN 28 pg (25-34); MEAN CORPUSCULAR HGB CONC 32 g/dL (32-36); MEAN CORPUSCULAR VOLUME 88 fL (80-99); MEAN PLATELET VOLUME 9.7 fL (9.0-12.2); MONOCYTES # (AUTO) 0.4 10^3/uL (0.0-1.0); MONOCYTES % (AUTO) 7 % (0-12); NEUTROPHILS % (AUTO) 74 % (42-75); PLATELET COUNT 223 10^3/uL (130-400); WHITE BLOOD COUNT 5.5 10^3/uL (4.3-11.0)
[2022-12-26 05:57] LABS: POTASSIUM 3.7 MMOL/L (3.6-5.0)
[2022-12-26 05:58] LABS: CALCIUM 8.5 MG/DL (8.5-10.1)
[2022-12-26 06:03] LABS: CREATININE SERUM 0.94 MG/DL (0.60-1.30)
[2022-12-26] MEDS: NS IV 1000 ML 1,000 ML IV SCH ×2 (06:24→20:14)
[2022-12-26 07:37] VITALS: BP 118/71
[2022-12-26] MEDS: SENNOSIDES 8.6 MG TABLET PO SCH ×2 (09:00→20:14)
[2022-12-26] MEDS: DOCUSATE SODIUM 100 MG CAPSULE PO SCH ×2 (09:00→20:14)
[2022-12-26] MEDS ORDERED: inSUlin DETERMIR 1 UNIT/0.01 ML (CHARGE PER UNIT) SQ NR (10:00)
--- NOTE | 2022-12-26 10:41 | History & Physical-Hospitalist ---
History of Present Illness HPI/Chief Complaint Randy Elliott is an 87 year old male with PMH BPH, T2DM on insulin, PTSD, who presented with nausea and vomiting. He also reports urinary symptoms or urinary frequency, urgency, and dribbling. These symptoms have been worse the past few days. He has a history of BPH. He says he stopped taking Flomax a year ago because he thought he didn't need it. He denies fevers and chills. He denies back pain. Source: patient Exam Limitations: no limitations Date Seen 12/26/22 Time Seen by a Provider: 09:10 Attending Physician Dawit Dempsey MD PCP Admitting Physician: Carmita Villalpando MD Attending Physician: Carmita Villalpando MD Referring Physician Date of Admission Dec 25, 2022 at 17:56 Home Medications & Allergies Home Medications Reviewed patient Home Medication Reconciliation performed by pharmacy medication reconciliations lawn and garden technician and/or nursing. Patients Allergies have been reviewed. Allergies Allergies Coded Allergies Sulfa (Sulfonamide Antibiotics) (Unverified Allergy, Severe, HIVES, SOA, 01/08/19) Past Uuvbgvv-Zqkpmi-Ymtpdm Hx Patient Social History Tobacco Use?: No Use of E-Cig and/or Vaping dev: No Substance use?: No Alcohol Use?: No Pt feels they are or have been: No Immunizations Up To Date First/Initial COVID19 Vaccinat: 2020 Second COVID19 Vaccination Maurice: 2020 Tetanus Booster (TDap): Unknown Hepatitis A: No Hepatitis B: No Date of Pneumonia Vaccine: Feb 05, 2011 Current Status Advance Directives: No Advance Directive Location: Family to bring in copy Communicates: Verbally Primary Language: [place] Preferred Spoken Language: [place] Sensory deficits: Vision impairment, Hearing impairment Implanted or Applied Medical D: None Past Medical History Surgeries: Appendectomy, Coronary Stent, Gallbladder Coronary Artery Disease, Heart Attack, Hypertension Stroke Diverticulosis Arthritis Diabetes, Insulin dep Anxiety Blood Disorders: No Family Medical History Reviewed Nursing Family Hx No Pertinent Family Hx Review of Systems Constitutional: no symptoms reported Respiratory: no symptoms reported Cardiovascular: no symptoms reported Gastrointestinal: nausea, vomiting Genitourinary: frequency Physical Exam Physical Exam Vital Signs Vital Signs - First Documented 12/25/22 14:01 Temp 35.5 Pulse 107 Resp 20 B/P (MAP) 133/80 (97) Pulse Ox 95 O2 Delivery Room Air Capillary Refill : Less Than 3 Seconds Height, Weight, BMI Height: 5'10" Weight: 230lbs. oz. 104.729127bt; 28.46 BMI Method:Stated General Appearance: No Apparent Distress, WD/WN HEENT: PERRL/EOMI, Pharynx Normal Neck: Normal Inspection, Supple Respiratory: Lungs Clear, No Respiratory Distress Cardiovascular: Regular Rate, Rhythm, No Murmur Gastrointestinal: Normal Bowel Sounds, Non Tender, Soft Genital/Rectal: Other (rice in place with bright red blood in catheter) Extremity: Normal Inspection, No Pedal Edema Neurologic/Psychiatric: Alert, Normal Mood/Affect Skin: Normal Color, Warm/Dry Results Results/Procedures Labs Laboratory Tests 12/25/22 14:05 12/26/22 05:23 Patient resulted labs reviewed. Imaging: Reviewed Imaging Report Assessment/Plan Admission Diagnosis Sepsis due to UTI Admission Status: Inpatient Order (span 2 midnights) Reason for Inpatient Admission: UTI BPH Assessment and Plan Sepsis due to UTI BPH Urinary retention Hematuria Lactic acidosis UA consistent with UTI Urine culture pending Rocephin Rice placed due to retention Flush as needed, likely traumatic rice insertion Increase Flomax T2DM Levemir Sliding scale insulin PTSD Ativan at night as needed DVT prophylaxis: Lovenox held due to hematuria Diagnosis/Problems Diagnosis/Problems (1) Sepsis due to urinary tract infection Status: Acute (2) BPH with urinary obstruction Status: Acute (3) Lactic acidosis Status: Acute (4) Hematuria Status: Acute (5) PTSD (post-traumatic stress disorder) Status: Chronic (6) T2DM (type 2 diabetes mellitus) Status: Chronic Qualifiers: Diabetes mellitus 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
[2022-12-26 11:14] VITALS: BP 113/70
[2022-12-26] MEDS: inSUlin ASPART 1 UNIT/0.01 ML (PER UNIT) SC SCH ×3 (11:20→21:53)
--- NOTE | 2022-12-26 11:26 | Physical Therapy Evaluation ---
PT Evaluation-General Medical Diagnosis Admission Date Dec 25, 2022 at 17:56 Medical Diagnosis: sepsis/UTI Onset Date: Dec 25, 2022 Therapy Diagnosis Therapy Diagnosis: generalized weakness/debility Height/Weight Height (Feet): 5 Height (Inches): 10 Weight (Pounds): 230 Precautions Precautions/Isolations: Standard Precautions Weight Bear Status Right Lower Extremity: Right Full Weight Bearing Left Lower Extremity: Left Full Weight Bearing Referral Physician: Bogdan Reason for Referral: Evaluation/Treatment Medical History Pertinent Medical History: CAD, DM, HTN, [place] Current History EMS secondary to N/V/D Reviewed History: Yes Social History Home: Single Level Current Living Status: Alone (family assist per patient) Entry Into Home: Ramp Prior Prior Level of Function SCALE: Activities may be completed with or without assistive devices. 0-Aucheiwrlx-rtncjfv completes the activity by him/herself with no assistance from a helper. 5-Set-up or Clean-up Assistance-helper sets up or cleans up; patient completes activity. [place] assists only prior to or following the activity. 4-Supervision or Touching Assistance-helper provides verbal cues and/or touching/steadying and/or contact guard assistance as patient completes activity. Assistance may be provided throughout the activity or intermittently. 3-Partial/Moderate Assistance-helper does LESS THAN HALF the effort. [place] lifts, holds or supports trunk or limbs, but provides less than half the effort. 2-Substantial/Maximal Assistance-helper does MORE THAN HALF the effort. [place] lifts or holds trunk or limbs and provides more than half the effort. 1-Qwlzuizha-woajfy does ALL the effort. Patient does none of the effort to complete the activity. Or, the assistance of 2 or more helpers is required for the patient to complete the activity. If activity was not attempted, code reason: 7-Patient Refused. 9-Not Applicable-not attempted and the patient did not perform the activity before the current illness, exacerbation or injury. 10-Not Attempted due to Environmental Limitations-(lack of equipment, weather restraints, etc.). 88-Not Attempted due to Medical Conditions or Safety Concerns. Bed Mobility: 6 Transfers (B,C,W/C): 6 Gait: 6 Indoor Mobility (Ambulation): Independent Prior Devices Use: Manual wheelchair, Walker (4WW) ambulates short distances only per patient report PT Evaluation-Current Subjective Patient states,"I can't walk. I'm crippled." Patient then states he walks short distances in home and utilizes a w/c for majority of mobility. Pain Numeric Pain Scale: 0-No Pain Location: No Pain Reported Objective Patient Orientation: Person, Place, Time Attachments: Ellis Catheter, IV ROM/Strength ROM Lower Extremities bilateral LE WFL Strength Lower Extremities 3/5 grossly bilateral LE all planes Integumentary/Posture Bladder Incontinence: Ellis Cath Neuromuscular (Tone, Coordination, Reflexes) grossly intact Sensory Vision: Functional Hearing: Impaired Transfers Lying to Sitting/Side of Bed(Q: 3 Sit to Stand (QC): 3 Chair/Ocw-iw-Spebz Xfer(QC): 3 Gait Walk 10 feet (QC): 3 Walk 50 ft with 2 Turns(QC): 88 Distance: 10' Gait Assistive Device: FWW Comments/Gait Description unsteady gait Balance Sitting Static: Fair Sitting Dynamic: Fair Standing Static: Fair Standing Dynamic: Fair Assessment/Needs Patient will benefit from skilled PT to address functional strength and mobility to improve current LOF. Patient is currently mod assist with all mobility. Rehab Potential: Fair PT Odd Job Laborer Goals Odd Job Laborer Goals PT Odd Job Laborer Goals Time Frame: Jan 06, 2023 Roll Left & Right (QC): 4 Sit to Lying (QC): 4 Lying-Sitting on Side/Bed(QC): 4 Sit to Stand (QC): 4 Chair/Mdp-if-Jrkqu Xfer(QC): 4 Toilet Transfer (QC): 4 Walk 10 feet (QC): 4 Walk 50ft with 2 Turns (QC): 4 PT Plan Problem List Problem List: Activity Tolerance, Functional Strength, Safety, Balance, Gait, Transfer, Bed Mobility Treatment/Plan Treatment Plan: Continue Plan of Care Treatment Plan: Bed Mobility, Education, Functional Activity Rita, Functional Strength, Gait, Safety, Therapeutic Exercise, Transfers Treatment Duration: Jan 06, 2023 Frequency: 5 times per week Estimated Hrs Per Day: .25 hour per day Time Time In: 1043 Time Out: 1056 DATE: Dec 26, 2022 Total Billed Treatment Time: 13 Total Billed Treatment 1 visit EVMod 13 min ROSA SAMSON PT Dec 26, 2022 11:26
--- NOTE | 2022-12-26 11:37 | Occupational Therapy Eval ---
OT Evaluation-General/PLF Medical Diagnosis Admission Date Dec 25, 2022 at 17:56 Medical Diagnosis: sepsis/UTI Onset Date: Dec 25, 2022 Therapy Diagnosis Therapy Diagnosis: weakness Height/Weight Height (Feet): 5 Height (Inches): 10 Weight (Pounds): 230 Precautions Precautions/Isolations: Standard Precautions Weight Bear Status Weight Bearing Restriction: Weight Bearing/Tolerated Location Restriction: LE Bilateral Referral Physician: Bogdan Referral Reason: Evaluation/Treatment Medical History Pertinent Medical History: CAD, DM, HTN, [place] Additional Medical History 87 year old male with PMH BPH, T2DM on insulin, PTSD, who presented with nausea and vomiting. He also reports urinary symptoms or urinary frequency, urgency, and dribbling. These symptoms have been worse the past few days. He has a history of BPH. He says he stopped taking Flomax a year ago because he thought he didn't need it. He denies fevers and chills. Urine is currently bloody Social History Home: Single Level Current Living Status: Alone (family assist per patient) Entry Into Home: Ramp ADL-Prior Level of Function SCALE: Activities may be completed with or without assistive devices. 1-Riphkgrtof-adfwaad completes the activity by him/herself with no assistance from a helper. 5-Set-up or Clean-up Assistance-helper sets up or cleans up; patient completes activity. [place] assists only prior to or following the activity. 4-Supervision or Touching Assistance-helper provides verbal cues and/or touching/steadying and/or contact guard assistance as patient completes activity. Assistance may be provided throughout the activity or intermittently. 3-Partial/Moderate Assistance-helper does LESS THAN HALF the effort. [place] lifts, holds or supports trunk or limbs, but provides less than half the effort. 2-Substantial/Maximal Assistance-helper does MORE THAN HALF the effort. [place] lifts or holds trunk or limbs and provides more than half the effort. 2-Rytwawurm-bkznef does ALL the effort. Patient does none of the effort to complete the activity. Or, the assistance of 2 or more helpers is required for the patient to complete the activity. If activity was not attempted, code reason: 7-Patient Refused. 9-Not Applicable-not attempted and the patient did not perform the activity before the current illness, exacerbation or injury. 10-Not Attempted due to Environmental Limitations-(lack of equipment, weather restraints, etc.). 88-Not Attempted due to Medical Conditions or Safety Concerns. 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 Finally patient reports he does all his ADLS and cooks/cleans Self Care: Independent Functional Cognition: Independent Drive Self: No OT Current Status Subjective Initially rep[orts he can not walk because he is crippled, PLOF shift to walks w/ cane, walks with 4ww and finally uses a WC Mental Status/Objective Patient Orientation: Person, Place Attachments: Ellis Catheter, IV Current Hand Dominance: Right Upper Extremity ROM BUE ROM WFLs Upper Extremity Coordination WFLs Upper Extremity Sensation INTACT Upper Extremity Strength 4/5 grossly ADL-Treatment Eating (QC): 6 Oral Hygiene (QC): 5 Shower/Bathe Self (QC): 7 Upper Body Dressing (QC): 7 Lower Body Dressing (QC): 3 On/Off Footwear (QC): 3 Toileting Hygiene (QC): 3 Education OT Patient Education: Correct positioning, Exercise program, Modified ADL techniques, Progress toward Goal/Update tx plan, Purpose of tx/functional activities, Reviewed precautions, Rehab process, Safety issues, Transfer techniques Teaching Recipient: Patient Teaching Methods: Demonstration, Discussion Response to Teaching: Reinforcement Needed OT Net Front End Developer Goals [facility] Goals Eating (QC): 6 Oral Hygiene (QC): 6 Toileting Hygiene (QC): 6 Shower/Bathe Self (QC): 6 Upper Body Dressing (QC): 6 Lower Body Dressing (QC): 6 On/Off Footwear (QC): 6 1=Demonstrate adherence to instructed precautions during ADL tasks. 2=Patient will verbalize/demonstrate understanding of assistive devices/modifications for ADL. 3=Patient will improve strength/tolerance for activity to enable patient to perform ADL's. OT Education/Plan Problem List/Assessment Assessment: Decreased Activ Tolerance, Decreased Safety Aware, Impaired Funct Balance, Impaired Self-Care Skills Discharge Recommendations Plan/Recommendations: Continue POC Therapy Discharge Recommendati: Post Acute OT Treatment Plan/Plan of Care Treatment,Training & Education: Yes Patient would benefit from OT for education, treatment and training to promote independence in ADL's, mobility, safety and/or upper extremity function for AD L's. Plan of Care: ADL Retraining, Functional Mobility, Group Exercise/Act as Ind, UE Funct Exercise/Act Treatment Duration: Dec 29, 2022 Frequency: 3 times per week (3-5 times per week) Estimated Hrs Per Day: .25 hour per day Agreement: Yes Rehab Potential: Fair Time Start Time: 10:45 Stop Time: 10:55 DATE: Dec 26, 2022 Total Time Billed (hr/min): 10 Billed Treatment Time EVM 10 min KOKO STONE OT Dec 26, 2022 11:37
[2022-12-26] MEDS: oxyCODONE IMMEDIATE RELEASE 5 MG TABLET PO PRN ×2 (13:09→18:50)
[2022-12-26 15:47] VITALS: BP 135/71
[2022-12-26] MEDS ORDERED: ROSU40TA23 PO (16:46)
[2022-12-26] MEDS ORDERED: ASPI-1238 PO (16:46)
[2022-12-26] MEDS ORDERED: cefTRIAXone IV/IM 1,000 MG in NS (IVPB) 50 ML 50 ML IV SCH (17:00)
[2022-12-26] MEDS ORDERED: TAMSULOSIN 0.4 MG (FLOMAX) CAP PO SCH (18:00)
[2022-12-26 19:04] VITALS: BP 142/74
[2022-12-26] MEDS: MELATONIN 3 MG TABLET PO PRN (20:21)
[2022-12-26] MEDS: ALPRAZolam 0.5 MG TABLET PO PRN (20:21)
[2022-12-26] MEDS ORDERED: LIDOCAINE UROJET 2% GEL 10 ML PKG ONE (21:04)
[2022-12-26] MEDS ORDERED: LIDOCAINE UROJET 2% GEL 10 ML PKG TOP PRN (21:15)
[2022-12-26 23:18] VITALS: BP 124/52
[2022-12-27] MEDS: oxyCODONE IMMEDIATE RELEASE 5 MG TABLET PO PRN (02:16)
[2022-12-27 03:04] VITALS: BP 150/72
[2022-12-27 05:52] LABS: POTASSIUM 3.6 MMOL/L (3.6-5.0)
[2022-12-27 05:53] LABS: CALCIUM 8.2 MG/DL (8.5-10.1)
[2022-12-27 05:58] LABS: CREATININE SERUM 0.86 MG/DL (0.60-1.30)
[2022-12-27] MEDS: inSUlin ASPART 1 UNIT/0.01 ML (PER UNIT) SC SCH ×2 (05:59→11:26)
[2022-12-27 06:36] LABS: BASOPHILS % (AUTO) 1 % (0-10); EOSINOPHILS # (AUTO) 0.1 10^3/uL (0.0-0.3); EOSINOPHILS % (AUTO) 1 % (0-10); HEMATOCRIT 29 % (40-54); HEMOGLOBIN 9.3 g/dL (13.3-17.7); LYMPHOCYTES # (AUTO) 1.2 10^3/uL (1.0-4.0); LYMPHOCYTES % (AUTO) 27 % (12-44); MEAN CORPUSCULAR HEMOGLOBIN 28 pg (25-34); MEAN CORPUSCULAR HGB CONC 32 g/dL (32-36); MEAN CORPUSCULAR VOLUME 87 fL (80-99); MEAN PLATELET VOLUME 9.5 fL (9.0-12.2); MONOCYTES # (AUTO) 0.4 10^3/uL (0.0-1.0); MONOCYTES % (AUTO) 8 % (0-12); NEUTROPHILS # (AUTO) 2.8 10^3/uL (1.8-7.8); NEUTROPHILS % (AUTO) 63 % (42-75); PLATELET COUNT 202 10^3/uL (130-400); WHITE BLOOD COUNT 4.4 10^3/uL (4.3-11.0)
[2022-12-27 07:55] VITALS: BP 128/60
[2022-12-27] MEDS: DOCUSATE SODIUM 100 MG CAPSULE PO SCH (08:31)
[2022-12-27] MEDS: SENNOSIDES 8.6 MG TABLET PO SCH (08:32)
[2022-12-27] MEDS: NS IV 1000 ML 1,000 ML IV SCH (08:39)
[2022-12-27] MEDS ORDERED: inSUlin DETERMIR 1 UNIT/0.01 ML (CHARGE PER UNIT) SQ SCH (09:00)
--- NOTE | 2022-12-27 09:56 | Physical Therapy Daily Note ---
PT Daily Note-Current Subjective Pt found seated in recliner upon entry. Agreed to PT. Reports penile, prostate, and B knee pain pre-treatment. Does not rate pain. Pain Section J - Health Conditions 1. Rarely or not at all 2. Occasionally 3. Frequently 4. Almost constantly 8. Unable to answer Pain Effect on Sleep: 1 Pain Interference with Therapy: 1 Pain Interference w/Day-to-Day: 1 Mental Status Patient Orientation: Person, Place Attachments: Ellis Catheter, IV Transfers SCALE: Activities may be completed with or without assistive devices. 8-Etbxuimnrx-bbzsqpx completes the activity by him/herself with no assistance from a helper. 5-Set-up or Clean-up Assistance-helper sets up or cleans up; patient completes activity. [place] assists only prior to or following the activity. 4-Supervision or Touching Assistance-helper provides verbal cues and/or touching/steadying and/or contact guard assistance as patient completes activi ty. Assistance may be provided throughout the activity or intermittently. 3-Partial/Moderate Assistance-helper does LESS THAN HALF the effort. [place] lifts, holds or supports trunk or limbs, but provides less than half the effort. 2-Substantial/Maximal Assistance-helper does MORE THAN HALF the effort. [place] lifts or holds trunk or limbs and provides more than half the effort. 7-Hmxdsdsqi-vcubmx does ALL the effort. Patient does none of the effort to complete the activity. Or, the assistance of 2 or more helpers is required for the patient to complete the activity. If activity was not attempted, code reason: 7-Patient Refused. 9-Not Applicable-not attempted and the patient did not perform the activity before the current illness, exacerbation or injury. 10-Not Attempted due to Environmental Limitations-(lack of equipment, weather restraints, etc.). 88-Not Attempted due to Medical Conditions or Safety Concerns. Sit to Stand (QC): 3 Weight Bearing Right Lower Extremity: Right Full Weight Bearing Left Lower Extremity: Left Full Weight Bearing Gait Training Does the Patient Walk?: Yes Distance: 10 Walk 10 feet (QC): 3 Gait Persons Needed: 1 Gait Assistive Device: FWW Assessment Current Status: Poor Progress Pt performed sit to stand transfer from recliner /c MOD assist for lifting and verbal cues required for proper hand placement. Pt ambulated 10 feet in room /c use of a FWW. Required MOD assist to maintain upright due to strength deficits. Pt ambulates very slowly /c short step lengths. As pt is turning towards recliner he stated that his knees were giving out on him. He then required assistance from helper to complete transfer to recliner. Pt left in recliner /c call light in place and all needs met post-treatment. Continue to progress pt per POC. PT Digester Cook Goals Digester Cook Goals PT Digester Cook Goals Time Frame: Jan 06, 2023 Roll Left & Right (QC): 4 Sit to Lying (QC): 4 Lying-Sitting on Side/Bed(QC): 4 Sit to Stand (QC): 4 Chair/Oum-xh-Pvnxi Xfer(QC): 4 Toilet Transfer (QC): 4 Walk 10 feet (QC): 4 Walk 50ft with 2 Turns (QC): 4 PT Plan Treatment/Plan Treatment Plan: Continue Plan of Care Treatment Plan: Bed Mobility, Education, Functional Activity Rita, Functional Strength, Gait, Safety, Therapeutic Exercise, Transfers Treatment Duration: Jan 06, 2023 Frequency: 5 times per week Estimated Hrs Per Day: .25 hour per day Time Time In: 925 Time Out: 944 DATE: Dec 27, 2022 Total Billed Treatment Time: 19 Total Billed Treatment 1 visit GT x 1 EDIS GASPAR PRINTING TABLE HAND Dec 27, 2022 09:56
[2022-12-27] MEDS ORDERED: ASPI-1238 PO (10:10)
[2022-12-27] MEDS ORDERED: TMSL.4C PO (10:10)
[2022-12-27] MEDS ORDERED: CEFDINIR 300 MG CAPSULE PO NR (10:30)
[2022-12-27] MEDS ORDERED: CEFD300C3 PO (11:03)
[2022-12-27 11:17] VITALS: BP 123/62
--- NOTE | 2022-12-27 12:23 | Discharge Summary ---
Discharge Summary Hospital Course Problems/Dx: (1) Sepsis due to urinary tract infection Status: Acute (2) BPH with urinary obstruction Status: Acute (3) Lactic acidosis Status: Acute (4) Hematuria Status: Acute (5) PTSD (post-traumatic stress disorder) Status: Chronic (6) T2DM (type 2 diabetes mellitus) Status: Chronic Qualifiers: Hospital Course Date of Admission: Dec 25, 2022 at 17:56 Admission Diagnosis : Sepsis due to UTI, BPH Family Physician/Provider: Dawit Rodriguez MD Date of Discharge: 12/27/22 Discharge Diagnosis: Sepsis due to UTI, BPH Hospital Course: Randy Elliott is an 87 year old male who was admitted with sepsis due to UTI. He had a UA which was concerning for UTI. His urine culture was negative, but his UA and symptoms were highly concerning for UTI. He received a couple days of IV antibiotics and will complete a course of Omnicef as an outpatient. He had issues with urinary retention and had a rice placed. He was started on Flomax. He will be discharged with his rice in place. He should follow up with urology, Dr. Martins in about a week. He should follow up with his PCP, Dr. Rodriguez, in about a week. He refused home health care. He was discharged home in stable co ndition with family support. Labs and Pending Lab Test: Laboratory Tests 12/26/22 13:32: Glucometer 210H 12/26/22 15:51: Glucometer 204H 12/26/22 21:39: Glucometer 205H 12/27/22 05:24: White Blood Count 4.4, Red Blood Count 3.31L, Hemoglobin 9.3L, Hematocrit 29L, Mean Corpuscular Volume 87, Mean Corpuscular Hemoglobin 28, Mean Corpuscular Hemoglobin Concent 32, Red Cell Distribution Width 14.3, Platelet Count 202, Mean Platelet Volume 9.5, Immature Granulocyte % (Auto) 0, Neutrophils (%) (Auto) 63, Lymphocytes (%) (Auto) 27, Monocytes (%) (Auto) 8, Eosinophils (%) (Auto) 1, Basophils (%) (Auto) 1, Neutrophils # (Auto) 2.8, Lymphocytes # (Auto) 1.2, Monocytes # (Auto) 0.4, Eosinophils # (Auto) 0.1, Basophils # (Auto) 0.0, Immature Granulocyte # (Auto) 0.0, Sodium Level 140, Potassium Level 3.6, Chloride Level 107, Carbon Dioxide Level 27, Anion Gap 6, Blood Urea Nitrogen 15, Creatinine 0.86, Estimat Glomerular Filtration Rate 85, BUN/Creatinine Ratio 17, Glucose Level 150H, Calcium Level 8.2L 12/27/22 11:06: Glucometer 218H Microbiology 12/25/22 Urine Culture - Final, Complete NO GROWTH 12/25/22 Blood Culture - Preliminary, Resulted Home Meds Active Cefdinir 300 Mg Capsule 300 Mg PO BID 5 Days Flomax (Tamsulosin HCl) 0.4 Mg Cap 0.8 Mg PO DAILY@1800 30 Days Aspirin EC (Aspirin) 81 Mg Tablet.dr 81 Mg PO DAILY 30 Days Reported Rosuvastatin Calcium 40 Mg Tablet 20 Mg PO HS LAST FILLED 08-10-2022 #45/90 DAY SUPPLY Novolog (Insulin Aspart) 100 Unit/Ml Susp Units SQ AC USES PER SLIDING SCALE Omeprazole 20 Mg Tablet.dr 20 Mg PO DAILY PRN Hydrochlorothiazide 25 Mg Tablet 25 Mg PO DAILY LAST FILLED 08-05-2022 #90/90 DAY SUPPLY Assessment/Pt Instructions See instructions Discharge Planning: >30 minutes discharge planning Discharge Instructions Discharge Diet: No Restrictions Activity as Tolerated: Yes Discharge Physical Examination Vital Signs Vital Signs Date Time Temp Pulse Resp B/P (MAP) Pulse Ox O2 Delivery O2 Flow Rate FiO2 12/27/22 11:17 36.3 63 17 123/62 (82) 95 Room Air General Appearance: No Apparent Distress, WD/WN Respiratory: Lungs Clear, No Respiratory Distress Cardiovascular: Regular Rate, Rhythm, No Murmur Gastrointestinal: Normal Bowel Sounds, Soft Extremity: Normal Inspection, No Pedal Edema Skin: Normal Color, Warm/Dry Neurologic/Psychiatric: Alert, Normal Mood/Affect Allergies: Coded Allergies: Sulfa (Sulfonamide Antibiotics) (Unverified Allergy, Severe, HIVES, SOA, 01/08/19) Copy Copies To 1: Austin MARTINS MD; DAWIT RODRIGUEZ MD Discharge Summary Date of Admission Dec 25, 2022 at 17:56 Date of Discharge Discharge Date: Dec 27, 2022 Discharge Time: 12:18 Admission Diagnosis Sepsis due to UTI Discharge Diagnosis Sepsis due to UTI BPH Urinary retention Hematuria Lactic acidosis T2DM PTSD (1) Sepsis due to urinary tract infection Status: Acute (2) BPH with urinary obstruction Status: Acute (3) Lactic acidosis Status: Acute (4) Hematuria Status: Acute (5) PTSD (post-traumatic stress disorder) Status: Chronic (6) T2DM (type 2 diabetes mellitus) Status: Chronic Qualifiers: CARMITA VILLALPANDO MD Dec 27, 2022 12:23
[2022-12-27 12:27] VITALS: BP 123/62
== END 2022-12-27 12:25 | disposition home or self-care (01) | DRG 872 ==
LOC: EDUNIT# 13:56 → ER 13:57 → 4TH 17:56
PROVIDERS: ADMIT Internal Medicine; ATTEND Internal Medicine
DX: A41.9 Sepsis, unspecified organism (principal); N39.0 Urinary tract infection, site not specified; N13.8 Other obstructive and reflux uropathy; E87.21 Acute metabolic acidosis; N40.1 Benign prostatic hyperplasia with lower urinary tract symptoms; R31.9 Hematuria, unspecified; F43.10 Post-traumatic stress disorder, unspecified; E11.9 Type 2 diabetes mellitus without complications; R33.8 Other retention of urine; Z79.4 Long term (current) use of insulin; Z95.5 Presence of coronary angioplasty implant and graft; I25.10 Atherosclerotic heart disease of native coronary artery without angina pectoris; I25.2 Old myocardial infarction; I10 Essential (primary) hypertension; Z86.73 Personal history of transient ischemic attack (TIA), and cerebral infarction without residual deficits; M19.90 Unspecified osteoarthritis, unspecified site; Z79.82 Long term (current) use of aspirin; Z79.899 Other long term (current) drug therapy; E78.00 Pure hypercholesterolemia, unspecified; Z11.52 Encounter for screening for COVID-19
CPT/HCPCS: 36415; 71045; 80048; 80053; 81000; 82947; 83605; 84484; 85025; 85610; 85730; 86141; 87040; 87088; 87636; 93005

== ENCOUNTER 2022-12-27 15:53 | Observation (INO) | payer OTHER ==
[~2022-12-27] VITALS: Ht 177.8 cm; Wt 91.0 kg
[~2022-12-27 15:53] MED LIST changes: +ASPI-1238 PO; +ROSU40TA23 PO; +TMSL.4C PO
[2022-12-27 16:58] LABS: BASOPHILS % (AUTO) 1 % (0-10); EOSINOPHILS % (AUTO) 1 % (0-10); HEMATOCRIT 33 % (40-54); HEMOGLOBIN 10.3 g/dL (13.3-17.7); LYMPHOCYTES # (AUTO) 0.8 10^3/uL (1.0-4.0); LYMPHOCYTES % (AUTO) 13 % (12-44); MEAN CORPUSCULAR HEMOGLOBIN 28 pg (25-34); MEAN CORPUSCULAR HGB CONC 31 g/dL (32-36); MEAN CORPUSCULAR VOLUME 89 fL (80-99); MEAN PLATELET VOLUME 9.5 fL (9.0-12.2); MONOCYTES # (AUTO) 0.5 10^3/uL (0.0-1.0); MONOCYTES % (AUTO) 8 % (0-12); NEUTROPHILS % (AUTO) 78 % (42-75); PLATELET COUNT 236 10^3/uL (130-400); WHITE BLOOD COUNT 6.4 10^3/uL (4.3-11.0)
[2022-12-27 17:02] LABS: POTASSIUM 3.9 MMOL/L (3.6-5.0)
[2022-12-27 17:03] LABS: CALCIUM 8.9 MG/DL (8.5-10.1)
--- NOTE | 2022-12-27 17:05 | ED General ---
General Chief Complaint: General Problems/Pain Stated Complaint: WEAK Nursing Triage Note: generalized weakness, would like half-way placement. discharged from hospital this am. Source of Information: Patient, Family, Old Records Exam Limitations: No Limitations History of Present Illness Date Seen by Provider: Dec 27, 2022 Time Seen by Provider: 16:13 Initial Comments This 87-year-old gentleman presents to the emergency room by private vehicle with the assistance of his son. He had been admitted to the hospital December 25 for suspected sepsis and UTI. He was discharged earlier today. He had been feeling relatively well at the time of discharge but then was functionally not able to care for himself after returning home. He reports weakness was preventing him from even being able to transfer from one seated position to another. He does not feel he can safely function at home. He reportedly does not have 24-hour support in the home. Documentation from prior admission was reviewed. He has indwelling Ellis catheter with gross hematuria and clots in the catheter tubing. Allergies and Home Medications Allergies Coded Allergies: Sulfa (Sulfonamide Antibiotics) (Unverified Allergy, Severe, HIVES, SOA, 01/08/19) Patient Home Medication List Home Medication List Reviewed: Yes Aspirin (Aspirin EC) 81 Mg Tablet., 81 MG PO DAILY Prescribed by: CARMITA VILLALPANDO on 12/27/22 1010 Cefdinir (Cefdinir) 300 Mg Capsule, 300 MG PO BID Prescribed by: CARMITA VILLALPANDO on 12/27/22 1103 Hydrochlorothiazide (Hydrochlorothiazide) 25 Mg Tablet, 25 MG PO DAILY, (Reported) Entered as Reported by: LEA MARTINEZ on 01/08/19 1521 Insulin Aspart (Novolog) 100 Unit/Ml Susp, UNITS SQ AC, (Reported) Entered as Reported by: LEA MARTINEZ on 01/08/19 1521 Omeprazole (Omeprazole) 20 Mg Tablet., 20 MG PO DAILY PRN for HEARTBURN, (Reported) Entered as Reported by: LEA MARTINEZ on 01/08/19 1521 Rosuvastatin Calcium (Rosuvastatin Calcium) 40 Mg Tablet, 20 MG PO HS, (Reported) Entered as Reported by: DYLAN WINSTON on 12/26/22 1646 Tamsulosin HCl (Flomax) 0.4 Mg Cap, 0.8 MG PO DAILY@1800 Prescribed by: CARMITA VILLALPANDO on 12/27/22 1010 Discontinued Medications Amoxicillin/Potassium Clav (Amox Tr-K Clv 250-62.5/5 Susp) 250 Mg/5 Ml Susp.r econ, 17 ML PO Q12H Discontinued Reason: No Longer Taking Prescribed by: EPIFANIO RODRIGUEZ on 11/26/20 0756 Aspirin (Aspir 81) 81 Mg Tablet.dr, 160 MG PO DAILY, (Reported) Discontinued Reason: Prescription changed Entered as Reported by: LEA MARTINEZ on 01/08/19 1521 Cefdinir (Cefdinir) 300 Mg Capsule, 300 MG PO BID Discontinued Reason: No Longer Taking Prescribed by: PHIL AYALA on 08/17/22 1113 Cod Liver Oil (Cod Liver Oil) 1 Each Capsule, 1 EACH PO DAILY, (Reported) Discontinued Reason: No Longer Taking Entered as Reported by: LEA MARTINEZ on 01/08/19 1521 Cyanocobalamin (Vitamin B-12) (Vitamin B-12) 500 Mcg Tablet, 500 MCG PO DAILY, (Reported) Discontinued Reason: No Longer Taking Entered as Reported by: LEA MARTINEZ on 01/08/19 1521 Erythromycin Stearate (Erythromycin Stearate) 250 Mg Tablet, 250 MG PO DAILY, (Reported) Discontinued Reason: No Longer Taking Entered as Reported by: LEA MARTINEZ on 01/08/19 1521 Hyoscyamine Sulfate (Levsin-Sl) 0.125 Mg Tab.subl, 0.125 MG SL Q4H PRN for CRAMPS Discontinued Reason: No Longer Taking Prescribed by: ALBERTO GOMES on 12/10/22 1628 Insulin Glargine,Hum.rec.anlog (Lantus) 100 Unit/1 Ml Vial, 100 UNIT SQ, (Reported) Discontinued Reason: No Longer Taking Entered as Reported by: LEA MARTINEZ on 01/08/19 1521 Lorazepam (Lorazepam) 0.5 Mg Tablet, 0.5 MG PO DAILY, (Reported) Discontinued Reason: No Longer Taking Entered as Reported by: LEA MARTINEZ on 01/08/19 1521 Meclizine HCl (Meclizine HCl) 25 Mg Tablet, 25 MG PO DAILY, (Reported) Discontinued Reason: No Longer Taking Entered as Reported by: LEA MARTINEZ on 01/08/19 1521 Ondansetron (Ondansetron Odt) 4 Mg Tab.rapdis, 4 MG PO Q6H PRN for NAUSEA-1ST LINE Discontinued Reason: No Longer Taking Prescribed by: EPIFANIO RODRIGUEZ on 11/26/20 0758 Ondansetron (Ondansetron Odt) 4 Mg Tab.rapdis, 4 MG SL Q4H PRN for NAUSEA/ VOMITING Discontinued Reason: No Longer Taking Prescribed by: ALBERTO GOMES on 12/10/22 1628 Rosuvastatin Calcium (Rosuvastatin Calcium) 20 Mg Tablet, 20 MG PO DAILY, (Reported) Discontinued Reason: Prescription changed Entered as Reported by: LEA MARTINEZ on 01/08/19 1521 Review of Systems Review of Systems Constitutional: see HPI; No fever; weakness EENTM: no symptoms reported Respiratory: no symptoms reported Cardiovascular: no symptoms reported Gastrointestinal: no symptoms reported Genitourinary: see HPI Musculoskeletal: no symptoms reported Skin: no symptoms reported Psychiatric/Neurological: No Symptoms Reported Hematologic/Lymphatic: No Symptoms Reported Immunological/Allergic: no symptoms reported Past Eekomgv-Wrbcdm-Onomgg Hx Patient Social History Tobacco Use?: No Use of E-Cig and/or Vaping dev: No Substance use?: No Alcohol Use?: No Immunizations Up To Date Influenza Vaccine Up-to-Date: No; Not Current First/Initial COVID19 Vaccinat: vaccinated Second COVID19 Vaccination [place]: 2020 Third COVID19 Vaccination Date: 2020 Past Medical History Surgery/Hospitalization HX: PMH: HTN, HIGH CHOLESTEROL SX: GALLBLADDER, APPENDIX Surgeries: Yes (CATARACT SX) Appendectomy, Coronary Stent, Gallbladder Respiratory: No Cardiac: Yes (STENT) Coronary Artery Disease, Heart Attack, Hypertension Neurological: Yes (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 oz. [id number]; 28.00 BMI Method:Stated General Appearance: No Apparent Distress, WD/WN HEENT: PERRL/EOMI, Normal ENT Inspection Neck: Normal Inspection Respiratory: Lungs Clear, Normal Breath Sounds, No Accessory Muscle Use Cardiovascular: Regular Rate, Rhythm, No Edema, No Murmur Gastrointestinal: Non Tender, Soft Genital/Rectal: Other (blood and small clots in Ellis tubing) Extremity: Normal Inspection Neurologic/Psychiatric: Alert, Oriented x3, Normal Mood/Affect, Other (Generalized weakness. Required 3 person assist to transfer from wheelchair to bed.) Skin: Normal Color, Warm/Dry Progress/Results/Core Measures Suspected Sepsis SIRS Temperature: Pulse: 93 Respiratory Rate: 20 Laboratory Tests 12/27/22 16:25: White Blood Count 6.4 Blood Pressure 159 /104 Mean: 122 Laboratory Tests 12/27/22 16:25: Creatinine 1.04, Platelet Count 236 Results/Orders Lab Results Laboratory Tests Test 12/27/22 16:25 12/27/22 16:35 Range/Units White Blood Count 6.4 4.3-11.0 10^3/uL Red Blood Count 3.70 L 4.30-5.52 10^6/uL Hemoglobin 10.3 L 13.3-17.7 g/dL Hematocrit 33 L 40-54 % Mean Corpuscular Volume 89 80-99 fL Mean Corpuscular Hemoglobin 28 25-34 pg Mean Corpuscular Hemoglobin Concent 31 L 32-36 g/dL Red Cell Distribution Width 14.2 10.0-14.5 % Platelet Count 236 130-400 10^3/uL Mean Platelet Volume 9.5 9.0-12.2 fL Immature Granulocyte % (Auto) 0 % Neutrophils (%) (Auto) 78 H 42-75 % Lymphocytes (%) (Auto) 13 12-44 % Monocytes (%) (Auto) 8 0-12 % Eosinophils (%) (Auto) 1 0-10 % Basophils (%) (Auto) 1 0-10 % Neutrophils # (Auto) 5.0 1.8-7.8 10^3/uL Lymphocytes # (Auto) 0.8 L 1.0-4.0 10^3/uL Monocytes # (Auto) 0.5 0.0-1.0 10^3/uL Eosinophils # (Auto) 0.0 0.0-0.3 10^3/uL Basophils # (Auto) 0.0 0.0-0.1 10^3/uL Immature Granulocyte # (Auto) 0.0 0.0-0.1 10^3/uL Sodium Level 139 135-145 MMOL/L Potassium Level 3.9 3.6-5.0 MMOL/L Chloride Level 105 98-107 MMOL/L Carbon Dioxide Level 25 21-32 MMOL/L Anion Gap 9 5-14 MMOL/L Blood Urea Nitrogen 16 7-18 MG/DL Creatinine 1.04 0.60-1.30 MG/DL Estimat Glomerular Filtration Rate 70 BUN/Creatinine Ratio 15 Glucose Level 245 H 70-105 MG/DL Calcium Level 8.9 8.5-10.1 MG/DL Magnesium Level 2.2 1.6-2.4 MG/DL Urine Color RED H Urine Clarity TURBID Urine pH 5.0 5-9 Urine Specific [place] 1.025 H 1.016-1.022 Urine Protein 3+ H NEGATIVE Urine Glucose (UA) 1+ H NEGATIVE Urine Ketones 1+ H NEGATIVE Urine Nitrite NEGATIVE NEGATIVE Urine Bilirubin 3+ H NEGATIVE Urine Urobilinogen 1.0 < = 1.0 MG/DL Urine Leukocyte Esterase 3+ H NEGATIVE Urine RBC (Auto) 3+ H NEGATIVE Urine RBC TNTC H /HPF Urine WBC TNTC H /HPF Urine Squamous Epithelial Cells NONE /HPF Urine Crystals NONE /LPF Urine Bacteria LARGE H /HPF Urine Casts NONE /LPF Urine Mucus NEGATIVE /LPF Urine Culture Indicated YES My Orders Orders - ALBERTO POWERS MD Basic Metabolic Panel (12/27/22 16:47) Cbc And Automated Diff (12/27/22 16:47) Magnesium (12/27/22 16:47) Ed Iv/Invasive Line Start (12/27/22 16:47) Ua Culture If Indicated (12/27/22 17:01) Ed Admission (Communication) (12/27/22 17:09) Urine Culture (12/27/22 16:35) Vital Signs/I&O 12/27/22 12/27/22 16:25 17:43 Temp 35.5 35.5 Pulse 93 83 Resp 20 20 B/P (MAP) 159/104 (122) 152/77 Pulse Ox 97 98 O2 Delivery Room Air Room Air Capillary Refill : Less Than 3 Seconds Blood Pressure Mean: 122 Progress Note : Progress Note Patient was interviewed and examined. Patient's son contributed to the history. Chart was reviewed. Basic labs were obtained and interpreted by me. CBC was unremarkable except for mild anemia with hemoglobin of 10.3. BMP was unremarka ble except for hyperglycemia with glucose of 245. Magnesium was normal at 2.2. Urinalysis resulted after admission. There was suggestion of gross hematuria and UTI. Specific gravity was 1.025. 1+ ketones and 3+ leukocyte esterase were present. There were too numerous to count RBCs and WBCs. Large bacteria were also present. I discussed the case with Dr. Villalpando who was agreeable to admission and placed orders. Departure Communication (Admissions) Time/Spoke to Admitting Phy: 17:04 Dr. Villalpando Impression Primary Impression: Generalized weakness Additional Impressions: Constipation Qualified Codes: K59.00 - Constipation, unspecified Unable to care for self Hematuria Qualified Codes: R31.0 - Gross hematuria Urinary tract infection Qualified Codes: N39.0 - Urinary tract infection, site not specified; R31.9 - Hematuria, unspecified Disposition: ADMITTED INPATIENT Condition: Stable Admissions Decision to Admit Reason: Admit from ER (General) Decision to Admit/Date: Dec 27, 2022 Time/Decision to Admit Time: 17:04 Departure-Patient Inst. Referrals: EPIFANIO RODRIGUEZ MD (PCP/Family) Primary Care Physician Copy Copies To 1: EPIFANIO RODRIGUEZ MD Copies To 2: Austin MARTINS MD, JOSHUA T MD Dec 27, 2022 17:05
[2022-12-27 17:07] LABS: CREATININE SERUM 1.04 MG/DL (0.60-1.30)
[2022-12-27 17:09] LABS: MAGNESIUM 2.2 MG/DL (1.6-2.4)
[2022-12-27 17:31] LABS: BACTERIA,URINE LARGE /HPF; BILIRUBIN,URINE 3+ (NEGATIVE); CLARITY,URINE TURBID; COLOR,URINE RED; GLUCOSE, URINE (UA) 1+ (NEGATIVE); KETONES,URINE 1+ (NEGATIVE); LEUKOCYTE ESTERASE ,URINE 3+ (NEGATIVE); NITRITE,URINE NEGATIVE (NEGATIVE); PROTEIN,URINE 3+ (NEGATIVE); RBC,URINE TNTC /HPF; WBC,URINE TNTC /HPF
[2022-12-27] MEDS ORDERED: ACETAMINOPHEN 325 MG TABLET PO PRN (18:45)
[2022-12-27] MEDS ORDERED: BISACODYL 10 MG SUPPOSITORY PR PRN (18:45)
[2022-12-27] MEDS ORDERED: ANTACID SUSPENSION 30 ML UDC PO PRN (18:45)
[2022-12-27] MEDS ORDERED: LACTULOSE SYRUP 10GM/15ML 30ML UDC PO PRN (18:45)
[2022-12-27] MEDS ORDERED: ONDANSETRON INJECTION 4 MG/2 ML (SDV) IV PRN (18:45)
[2022-12-27] MEDS ORDERED: MELATONIN 3 MG TABLET PO PRN (18:45)
[2022-12-27] MEDS ORDERED: MILK OF MAGNESIA 400 MG/5 ML 30 ML UDC PO PRN (18:45)
[2022-12-27] MEDS ORDERED: ONDANSETRON 4 MG ORAL DISSOLVE TABLET PO PRN (18:45)
[2022-12-27] MEDS ORDERED: CALCIUM CARBONATE 500 MG CHEW TABLET PO PRN (18:45)
[2022-12-27 19:11] VITALS: BP 154/70
[2022-12-27] MEDS: DOCUSATE SODIUM 100 MG CAPSULE PO SCH (21:06)
[2022-12-27] MEDS: CEFDINIR 300 MG CAPSULE PO SCH (21:06)
[2022-12-27] MEDS: inSUlin ASPART 1 UNIT/0.01 ML (PER UNIT) SC SCH (21:06)
[2022-12-27] MEDS: ENOXAPARIN 40 MG/0.4 ML SYRINGE SC SCH (21:06)
[2022-12-27] MEDS: SENNOSIDES 8.6 MG TABLET PO SCH (21:06)
[2022-12-27] MEDS: LORazepam 0.5 MG TABLET PO PRN (21:07)
[2022-12-27] MEDS: oxyCODONE IMMEDIATE RELEASE 5 MG TABLET PO PRN (21:08)
[2022-12-27 23:38] VITALS: BP 153/65
[2022-12-28 03:31] VITALS: BP 135/68
[2022-12-28] MEDS: inSUlin ASPART 1 UNIT/0.01 ML (PER UNIT) SC SCH ×4 (06:11→21:00)
[2022-12-28 07:26] VITALS: BP 147/77
--- NOTE | 2022-12-28 09:07 | Physical Therapy Evaluation ---
PT Evaluation-General Medical Diagnosis Admission Date Dec 27, 2022 at 17:56 Medical Diagnosis: generalized weakness Onset Date: Dec 27, 2022 Therapy Diagnosis Therapy Diagnosis: impaired mobility/generalized weakness Height/Weight Height (Feet): 5 Height (Inches): 10 Weight (Pounds): 230 Precautions Precautions/Isolations: Fall Prevention, Standard Precautions Weight Bear Status Right Lower Extremity: Right Weight Bearing/Tolerated Left Lower Extremity: Left Weight Bearing/Tolerated Referral Physician: Bogdan Reason for Referral: Evaluation/Treatment Medical History Pertinent Medical History: CAD, DM, HTN, [place] Current History Patient readmitted same day as dismissal due to inability to care for self at home and requiring NH admit per report. Reviewed History: Yes Prior Prior Level of Function SCALE: Activities may be completed with or without assistive devices. 3-Mihbkpqiqk-ijpqubn completes the activity by him/herself with no assistance from a helper. 5-Set-up or Clean-up Assistance-helper sets up or cleans up; patient completes activity. [place] assists only prior to or following the activity. 4-Supervision or Touching Assistance-helper provides verbal cues and/or touc ester/steadying and/or contact guard assistance as patient completes activity. Assistance may be provided throughout the activity or intermittently. 3-Partial/Moderate Assistance-helper does LESS THAN HALF the effort. [place] lifts, holds or supports trunk or limbs, but provides less than half the effort. 2-Substantial/Maximal Assistance-helper does MORE THAN HALF the effort. [place] lifts or holds trunk or limbs and provides more than half the effort. 7-Ufnqcvmmy-yzmxtx does ALL the effort. Patient does none of the effort to complete the activity. Or, the assistance of 2 or more helpers is required for the patient to complete the activity. If activity was not attempted, code reason: 7-Patient Refused. 9-Not Applicable-not attempted and the patient did not perform the activity before the current illness, exacerbation or injury. 10-Not Attempted due to Environmental Limitations-(lack of equipment, weather restraints, etc.). 88-Not Attempted due to Medical Conditions or Safety Concerns. Bed Mobility: 4 Transfers (B,C,W/C): 4 Gait: 4 (short distances only) Wheelchair Mobility: 4 Indoor Mobility (Ambulation): Needed Some Help Prior Devices Use: Manual wheelchair, Walker PT Evaluation-Current Subjective Patient reports he can't do anything because his legs don't work. After much encouragement, patient agrees to PT. ROM/Strength ROM Lower Extremities bilateral LE WFL Strength Lower Extremities 3/5 grossly bilateral LE all planes Integumentary/Posture Bladder Incontinence: Ellis Cath Posture WFL Neuromuscular (Tone, Coordination, Reflexes) grossly intact Sensory Vision: Functional Hearing: Impaired Transfers Lying to Sitting/Side of Bed(Q: 4 Sit to Stand (QC): 3 Chair/Bti-zp-Eilzp Xfer(QC): 3 Gait Walk 10 feet (QC): 3 Walk 50 ft with 2 Turns(QC): 88 Gait Assistive Device: FWW Comments/Gait Description slow, antalgic Balance Sitting Static: Normal Sitting Dynamic: Normal Standing Static: Fair Standing Dynamic: Fair Assessment/Needs Patient will benefit from skilled PT to address functional strength and mobility to improve current LOF. Patient report he is unable to care for himself at home and he does not feel safe in that environment. Rehab Potential: Fair PT Court Worker Goals Court Worker Goals PT Court Worker Goals Time Frame: Jan 13, 2023 Roll Left & Right (QC): 4 Sit to Lying (QC): 4 Lying-Sitting on Side/Bed(QC): 4 Sit to Stand (QC): 4 Chair/Ibk-tf-Njuty Xfer(QC): 4 Toilet Transfer (QC): 4 Walk 10 feet (QC): 4 Walk 50ft with 2 Turns (QC): 4 PT Plan Problem List Problem List: Activity Tolerance, Functional Strength, Safety, Balance, Gait, Transfer, Bed Mobility Treatment/Plan Treatment Plan: Continue Plan of Care Treatment Plan: Bed Mobility, Education, Functional Activity Rita, Functional Strength, Gait, Safety, Therapeutic Exercise, Transfers Treatment Duration: Jan 13, 2023 Frequency: 6 times per week Estimated Hrs Per Day: .25 hour per day Time Time In: 720 Time Out: 733 DATE: Dec 28, 2022 Total Billed Treatment Time: 13 Total Billed Treatment 1 visit [facility] 13 min ROSA SAMSON PT Dec 28, 2022 09:07
[2022-12-28] MEDS: DOCUSATE SODIUM 100 MG CAPSULE PO SCH ×2 (09:15→20:32)
[2022-12-28] MEDS: SENNOSIDES 8.6 MG TABLET PO SCH ×2 (09:15→20:32)
[2022-12-28] MEDS: CEFDINIR 300 MG CAPSULE PO SCH ×2 (09:15→20:32)
[2022-12-28] MEDS: inSUlin DETERMIR 1 UNIT/0.01 ML (CHARGE PER UNIT) SQ SCH (09:16)
[2022-12-28 11:36] VITALS: BP 144/70
[2022-12-28 16:02] VITALS: BP 127/67
--- NOTE | 2022-12-28 16:34 | History & Physical-Hospitalist ---
History of Present Illness HPI/Chief Complaint Randy Elliott is an 87 year old male who presented with weakness. He was discharged from the hospital yesterday after a stay with sepsis due to UTI. He was also found to have BPH and required rice placement. He was debilitated but stated he used a wheelchair at home most of the time anyway. He said he had family support. He refused home heatlh care. He got home and was unable to perform transfers. He returned to the ER and was readmitted due to weakness. Source: patient Exam Limitations: no limitations Date Seen 12/28/22 Time Seen by a Provider: 12:40 Attending Physician Dawit Dempsey MD PCP Admitting Physician: Carmita Villalpando MD Attending Physician: Carmita Villalpando MD Referring Physician Date of Admission Dec 27, 2022 at 17:56 Home Medications & Allergies Home Medications Reviewed patient Home Medication Reconciliation performed by pharmacy medication reconciliations ammonia technician and/or nursing. Patients Allergies have been reviewed. Allergies Allergies Coded Allergies Sulfa (Sulfonamide Antibiotics) (Unverified Allergy, Severe, HIVES, SOA, 01/08/19) Past Pqnhahr-Lhonow-Jxomqn Hx Patient Social History Tobacco Use?: Yes Tobacco type used: Cigarettes Smoking Status: Former Smoker Use of E-Cig and/or Vaping dev: No Substance use?: No Alcohol Use?: No Pt feels they are or have been: No Immunizations Up To Date First/Initial COVID19 Vaccinat: vaccinated Second COVID19 Vaccination Maurice: 2020 Tetanus Booster (TDap): Unknown Hepatitis A: No Hepatitis B: No Date of Pneumonia Vaccine: Feb 05, 2011 Current Status Advance Directives: Yes Advance Directive Location: Unable to obtain copy Communicates: Verbally Primary Language: Greenlandic Preferred Spoken Language: Greenlandic Sensory deficits: Vision impairment, Hearing impairment Implanted or Applied Medical D: None Past Medical History Surgeries: Appendectomy, Coronary Stent, Gallbladder Coronary Artery Disease, Heart Attack, Hypertension Stroke Diverticulosis Arthritis Diabetes, Insulin dep Anxiety Blood Disorders: No Family Medical History No Pertinent Family Hx Review of Systems Constitutional: weakness Respiratory: no symptoms reported Cardiovascular: no symptoms reported Gastrointestinal: no symptoms reported Physical Exam Physical Exam Vital Signs Vital Signs - First Documented 12/27/22 16:25 Temp 35.5 Pulse 93 Resp 20 B/P (MAP) 159/104 (122) Pulse Ox 97 O2 Delivery Room Air Capillary Refill : Less Than 3 Seconds Height, Weight, BMI Height: 5'10" Weight: 230lbs. oz. 104.370192pe; 28.78 BMI Method:Stated General Appearance: No Apparent Distress, WD/WN Neck: Normal Inspection, Supple Respiratory: Lungs Clear, No Respiratory Distress Cardiovascular: Regular Rate, Rhythm, No Murmur Gastrointestinal: Normal Bowel Sounds, Soft Extremity: Normal Inspection, No Pedal Edema Neurologic/Psychiatric: Alert, Normal Mood/Affect Skin: Normal Color, Warm/Dry Results Results/Procedures Labs Laboratory Tests 12/27/22 16:25 Patient resulted labs reviewed. Assessment/Plan Admission Diagnosis Debility Admission Status: Observation Assessment and Plan Debility PT/OT UTI BPH Continue Omnicef Rice in place Flomax T2DM Levemir Sliding scale insulin DVT prophylaxis: Lovenox Diagnosis/Problems Diagnosis/Problems (1) Debility Status: Acute (2) UTI (urinary tract infection) Status: Acute (3) BPH with urinary obstruction Status: Acute (4) T2DM (type 2 diabetes mellitus) Status: Chronic Qualifiers: Diabetes mellitus usp insulin use: with usp use CARMITA VILLALPANDO MD Dec 28, 2022 16:34
[2022-12-28] MEDS: TAMSULOSIN 0.4 MG (FLOMAX) CAP PO SCH (17:45)
[2022-12-28] MEDS: ENOXAPARIN 40 MG/0.4 ML SYRINGE SC SCH (17:46)
[2022-12-28 19:53] VITALS: BP 158/78
[2022-12-28] MEDS: oxyCODONE IMMEDIATE RELEASE 5 MG TABLET PO PRN (20:33)
[2022-12-28 23:54] VITALS: BP 169/73
[2022-12-29 04:00] VITALS: BP 117/60
[2022-12-29] MEDS: oxyCODONE IMMEDIATE RELEASE 5 MG TABLET PO PRN ×2 (04:36→19:53)
[2022-12-29] MEDS: inSUlin ASPART 1 UNIT/0.01 ML (PER UNIT) SC SCH ×4 (06:22→19:56)
[2022-12-29 07:53] VITALS: BP 106/69
[2022-12-29] MEDS: CEFDINIR 300 MG CAPSULE PO SCH ×2 (09:42→19:53)
[2022-12-29] MEDS: SENNOSIDES 8.6 MG TABLET PO SCH ×2 (09:42→19:53)
[2022-12-29] MEDS: DOCUSATE SODIUM 100 MG CAPSULE PO SCH ×2 (09:42→19:53)
[2022-12-29] MEDS: inSUlin DETERMIR 1 UNIT/0.01 ML (CHARGE PER UNIT) SQ SCH (09:42)
--- NOTE | 2022-12-29 09:52 | Physical Therapy Daily Note ---
PT Daily Note-Current Subjective Patient sitting in chair upon PT arrival, reports he just had a shower, agreeable to treatment. Patient rates his pain at 5/10 currently due to the Ellis. Pain Section J - Health Conditions 1. Rarely or not at all 2. Occasionally 3. Frequently 4. Almost constantly 8. Unable to answer Pain Effect on Sleep: 2 Pain Interference with Therapy: 2 Pain Interference w/Day-to-Day: 2 Transfers SCALE: Activities may be completed with or without assistive devices. 0-Upxpufqwes-fcdmkan completes the activity by him/herself with no assistance from a helper. 5-Set-up or Clean-up Assistance-helper sets up or cleans up; patient completes activity. [place] assists only prior to or following the activity. 4-Supervision or Touching Assistance-helper provides verbal cues and/or touching/steadying and/or contact guard assistance as patient completes activity. Assistance may be provided throughout the activity or intermittently. 3-Partial/Moderate Assistance-helper does LESS THAN HALF the effort. [place] lifts, holds or supports trunk or limbs, but provides less than half the effort. 2-Substantial/Maximal Assistance-helper does MORE THAN HALF the effort. [place] lifts or holds trunk or limbs and provides more than half the effort. 6-Iyzprsgjd-wjftaz does ALL the effort. Patient does none of the effort to complete the activity. Or, the assistance of 2 or more helpers is required for the patient to complete the activity. If activity was not attempted, code reason: 7-Patient Refused. 9-Not Applicable-not attempted and the patient did not perform the activity before the current illness, exacerbation or injury. 10-Not Attempted due to Environmental Limitations-(lack of equipment, weather restraints, etc.). 88-Not Attempted due to Medical Conditions or Safety Concerns. Sit to Stand (QC): 3 Chair/Vfq-aa-Uojtq Xfer(QC): 3 Weight Bearing Right Lower Extremity: Right Weight Bearing/Tolerated Left Lower Extremity: Left Weight Bearing/Tolerated Gait Training Does the Patient Walk?: Yes Distance: 80' Walk 10 feet (QC): 4 Walk 50 ft with 2 Turns(QC): 3 Gait Persons Needed: 1 Gait Assistive Device: FWW Assessment Current Status: Fair Progress Patient tolerated treatment well until the end of gait training. Patient performs all observed transfers with min a. Patient ambulates 80 feet with FWW, with SBA initially and min A just prior to sitting. Patient reports being severely tired ~10 feet from the chair. He begins to sit at ~ 2 feet from the chair and required min A to sit safely. Patient in chair post treatment with all needs met, nursing notified, call light in reach. PT Labor Employment Associate Goals Senior Living Goals PT Senior Living Goals Time Frame: Jan 13, 2023 Roll Left & Right (QC): 4 Sit to Lying (QC): 4 Lying-Sitting on Side/Bed(QC): 4 Sit to Stand (QC): 4 Chair/Rkz-pf-Qyiso Xfer(QC): 4 Toilet Transfer (QC): 4 Walk 10 feet (QC): 4 Walk 50ft with 2 Turns (QC): 4 PT Plan Treatment/Plan Treatment Plan: Continue Plan of Care Treatment Plan: Bed Mobility, Education, Functional Activity Rita, Functional Strength, Gait, Safety, Therapeutic Exercise, Transfers Treatment Duration: Jan 13, 2023 Frequency: 6 times per week Estimated Hrs Per Day: .25 hour per day Safety Risks/Education Patient Education: Gait Training, Transfer Techniques Teaching Recipient: Patient Teaching Methods: Demonstration, Discussion Response to Teaching: Reinforcement Needed Time Time In: 920 Time Out: 935 DATE: Dec 29, 2022 Total Billed Treatment Time: 15 Total Billed Treatment Visit, JASSI ALVARADO PT Dec 29, 2022 09:52
--- NOTE | 2022-12-29 10:21 | Occupational Therapy Eval ---
OT Evaluation-General/PLF Medical Diagnosis Admission Date Dec 27, 2022 at 17:56 Medical Diagnosis: generalized weakness Onset Date: Dec 27, 2022 Therapy Diagnosis Therapy Diagnosis: weakness Height/Weight Height (Feet): 5 Height (Inches): 10 Weight (Pounds): 230 Precautions Precautions/Isolations: Fall Prevention, Standard Precautions Weight Bear Status Weight Bearing Restriction: Full Weight Bearing Location Restriction: LE Bilateral Referral Physician: Bogdan Referral Reason: Self Care, Evaluation/Treatment Medical History Pertinent Medical History: CAD, DM, HTN, [place] Additional Medical History Recurrent admissions to hospital. Patient reports he is able to take care of himself, however required assistance to transfer out of Recliner, ambulate and mange ADLS Reviewed History: Yes Social History Home: Single Level Current Living Status: Alone ADL-Prior Level of Function SCALE: Activities may be completed with or without assistive devices. 1-Padwrfhhva-wltoson completes the activity by him/herself with no assistance from a helper. 5-Set-up or Clean-up Assistance-helper sets up or cleans up; patient completes activity. [place] assists only prior to or following the activity. 4-Supervision or Touching Assistance-helper provides verbal cues and/or touching/steadying and/or contact guard assistance as patient completes activity. Assistance may be provided throughout the activity or intermittently. 3-Partial/Moderate Assistance-helper does LESS THAN HALF the effort. [place] lifts, holds or supports trunk or limbs, but provides less than half the effort. 2-Substantial/Maximal Assistance-helper does MORE THAN HALF the effort. [place] lifts or holds trunk or limbs and provides more than half the effort. 1-Fbmltgfgr-xjfceu does ALL the effort. Patient does none of the effort to complete the activity. Or, the assistance of 2 or more helpers is required for the patient to complete the activity. If activity was not attempted, code reason: 7-Patient Refused. 9-Not Applicable-not attempted and the patient did not perform the activity before the current illness, exacerbation or injury. 10-Not Attempted due to Environmental Limitations-(lack of equipment, weather restraints, etc.). 88-Not Attempted due to Medical Conditions or Safety Concerns. ADL PLOF Comments Patient reports he can take care of himself, recent hospitalizations and inability to care for self at evaluation demonstrate unable to succeed at home alone Self Care: Needed Some Help Functional Cognition: Needed Some Help OT Current Status Subjective Patient to have shower w/ PCT following evaluation Mental Status/Objective Patient Orientation: Person, Place, Situation Current Hand Dominance: Right Upper Extremity ROM BUE ROM WFLs Upper Extremity Coordination slow responsiveness, delayed mobility, slow protective reflex Upper Extremity Sensation intact Upper Extremity Strength +3/5 BUE ADL-Treatment Eating (QC): 5 Oral Hygiene (QC): 4 (standing art sink) Shower/Bathe Self (QC): 2 Upper Body Dressing (QC): 3 Lower Body Dressing (QC): 3 On/Off Footwear (QC): 2 Toileting Hygiene (QC): 2 Education OT Patient Education: Correct positioning, Energy conservation, Modified ADL techniques, Progress toward Goal/Update tx plan, Purpose of tx/functional activities, Reviewed precautions, Rehab process, Safety issues, Transfer techniques, Use of adapted equipment Teaching Recipient: Patient Teaching Methods: Demonstration, Discussion Response to Teaching: Reinforcement Needed OT Shelter Goals Shelter Goals Eating (QC): 6 Oral Hygiene (QC): 6 Toileting Hygiene (QC): 6 Shower/Bathe Self (QC): 6 Upper Body Dressing (QC): 6 Lower Body Dressing (QC): 6 On/Off Footwear (QC): 6 1=Demonstrate adherence to instructed precautions during ADL tasks. 2=Patient will verbalize/demonstrate understanding of assistive devices/modifications for ADL. 3=Patient will improve strength/tolerance for activity to enable patient to perform ADL's. OT Education/Plan Problem List/Assessment Assessment: Decreased Activ Tolerance, Impaired Funct Balance, Impaired Self- Care Skills Discharge Recommendations Plan/Recommendations: Continue POC Therapy Discharge Recommendati: Post Acute OT Treatment Plan/Plan of Care Patient would benefit from OT for education, treatment and training to promote independence in ADL's, mobility, safety and/or upper extremity function for ADL's. Plan of Care: ADL Retraining, Cognitive Retraining, Concurrent Therapy, Functional Mobility, Group Exercise/Act as Ind, UE Funct Exercise/Act Treatment Duration: Jan 04, 2023 Frequency: 3 times per week (3-5 times per week) Estimated Hrs Per Day: .25 hour per day Agreement: Yes Rehab Potential: Fair Remain in bathroom w/PCT to dress Time Start Time: 08:30 Stop Time: 08:53 DATE: Dec 29, 2022 Total Time Billed (hr/min): 27 Billed Treatment Time EVM , ADL 27 min KOKO STONE OT Dec 29, 2022 10:21
[2022-12-29 11:29] VITALS: BP 123/70
[2022-12-29 15:36] VITALS: BP 132/75
--- NOTE | 2022-12-29 16:00 | Progress Note - Hospitalist ---
Subjective HPI/CC On Admission Date Seen by Provider: Dec 29, 2022 Time Seen by Provider: 10:10 Randy Elliott is an 87 year old male who presented with weakness. He was discharged from the hospital yesterday after a stay with sepsis due to UTI. He was also found to have BPH and required rice placement. He was debilitated but stated he used a wheelchair at home most of the time anyway. He said he had family support. He refused home heatlh care. He got home and was unable to perform transfers. He returned to the ER and was readmitted due to weakness. Subjective/Events-last exam He has been up walking with therapy. He is feeling stronger. He has no complaints. Objective Exam Vital Signs Vital Signs Date Time Temp Pulse Resp B/P (MAP) Pulse Ox O2 Delivery O2 Flow Rate FiO2 12/29/22 15:36 36.5 76 18 132/75 (94) 94 Room Air Capillary Refill : Less Than 3 Seconds General Appearance: No Apparent Distress, WD/WN Respiratory: Lungs Clear, No Respiratory Distress Cardiovascular: Regular Rate, Rhythm, No Murmur Gastrointestinal: Normal Bowel Sounds, Soft Extremity: Normal Inspection, No Pedal Edema Neurologic/Psychiatric: Alert, Normal Mood/Affect Results/Procedures Lab Patient resulted labs reviewed. Assessment/Plan Assessment and Plan Assess & Plan/Chief Complaint Debility PT/OT UTI BPH Continue Omnicef Rice in place Flomax T2DM Levemir Sliding scale insulin DVT prophylaxis: Lovenox Diagnosis/Problems Diagnosis/Problems (1) Debility Status: Acute (2) UTI (urinary tract infection) Status: Acute (3) BPH with urinary obstruction Status: Acute (4) T2DM (type 2 diabetes mellitus) Status: Chronic Qualifiers: Diabetes mellitus fci insulin use: with science technician use CARMITA VILLALPANDO MD Dec 29, 2022 16:00
--- NOTE | 2022-12-29 16:03 | D/C HH Face to Face Order ---
D/C Face to Face Orders Instructions for Patient Via [facility], Patient Instructions/FollowUp: Take medications as prescribed. Follow up with Dr. Spain and Dr. Almendarez as scheduled. Return with worsening weakness, pain, or if you feel like you are getting worse. Physician to follow Patient: Judit Discharge Diet for Home: No Restrictions Patient Data-Allergies,Ht & Wt Patient Allergies: Coded Allergies: Sulfa (Sulfonamide Antibiotics) (Unverified Allergy, Severe, HIVES, SOA, 01/08/19) Height (Feet): 5 Height (Inches): 10 Weight (Pounds): 230 Home Health Need/Face to Face Date of Face to Face: Dec 29, 2022 Clinical Findings: Generalized weakness and fatigue, Instability, Muscle weakness, Unsteady gait I have seen Pt eaed-de-ssjv: Yes Discharged To: Home Diagnosis/Conditions: BPH UTI Debility T2DM Problems/Diagnosis/Condition: (1) BPH with urinary obstruction (2) UTI (urinary tract infection) (3) Debility (4) T2DM (type 2 diabetes mellitus) Patient is Homebound due to: Mayuri fall risk due to instabilty, Muscle weakness Homebound Status Due to the above stated illness, injury or surgical procedure (medical condition or diagnosis) and associated clinical findings, the patient is homebound because of his/her inability to leave home except with aid of a supportive device and/or person AND leaving the home requires a considerable and taxing effort or is medically contraindicated. Pt req the following assistanc: Aid of another person Home Health Nursing Orders Home Health Services Order: Nursing Services, Manager Practice-Evaluate & Treat, Physical Therapy-Evaluate & Treat Home Health Infusion Therapy Line Start Date: Dec 27, 2022 Therapy Orders Therapy Orders: OT (must have SN or PT order), Physical Therapy Therapy Specific Orders: Eval assistive deivces, Teach enviro modifications/safety, Gait training, Increase strength/endurance [facility] certify that this patient is under my care and that I, a nurse practitioner or a physician; a paperhanger assistant working with me, had a face to face encounter that - meets the physician face to face encounter requirements with this patient as dated. CARMITA VILLALPANDO MD Dec 29, 2022 16:03
[2022-12-29] MEDS: TAMSULOSIN 0.4 MG (FLOMAX) CAP PO SCH (17:30)
[2022-12-29] MEDS: ENOXAPARIN 40 MG/0.4 ML SYRINGE SC SCH (18:17)
[2022-12-29 19:22] VITALS: BP 126/73
[2022-12-29] MEDS: LORazepam 0.5 MG TABLET PO PRN (23:12)
[2022-12-29 23:44] VITALS: BP 162/72
[2022-12-30] MEDS: oxyCODONE IMMEDIATE RELEASE 5 MG TABLET PO PRN (00:54)
[2022-12-30 03:26] VITALS: BP 111/57
[2022-12-30] MEDS: inSUlin ASPART 1 UNIT/0.01 ML (PER UNIT) SC SCH ×2 (06:00→10:51)
[2022-12-30 07:35] VITALS: BP 118/56
[2022-12-30] MEDS: DOCUSATE SODIUM 100 MG CAPSULE PO SCH (08:43)
[2022-12-30] MEDS: CEFDINIR 300 MG CAPSULE PO SCH (08:43)
[2022-12-30] MEDS: SENNOSIDES 8.6 MG TABLET PO SCH (08:43)
[2022-12-30] MEDS: inSUlin DETERMIR 1 UNIT/0.01 ML (CHARGE PER UNIT) SQ SCH (08:43)
[2022-12-30 11:28] VITALS: BP 149/69
[2022-12-30 13:41] VITALS: BP 149/69
--- NOTE | 2022-12-30 19:07 | Discharge Summary ---
Discharge Summary Hospital Course Problems/Dx: (1) Debility Status: Acute (2) UTI (urinary tract infection) Status: Acute (3) BPH with urinary obstruction Status: Acute (4) T2DM (type 2 diabetes mellitus) Status: Chronic Qualifiers: Hospital Course Date of Admission: Dec 27, 2022 at 17:56 Admission Diagnosis : Debility, UTI, BPH Family Physician/Provider: Dawit Dempsey MD Date of Discharge: 12/30/22 Discharge Diagnosis: Debility, UTI, BPH Hospital Course: Jassi Elliott is an 87 year old male who presented with weakness. He was discharged home the same day after an admission with sepsis due to UTI. He had refused home health care and placement. He stated his son helped him at home and he used a wheelchair. He got home and was unable to transfer so her returned to the hospital. He worked with therapy and his strength improved. He again refused placement but did allow us to set up home health care. His son was in agreement to the plan. He was discharged home in fair condition. He has follow up sched uled with Dr. Neal (PCP) and Dr. Almendarez (urology). Labs and Pending Lab Test: Laboratory Tests 12/29/22 19:51: Glucometer 185H 12/29/22 21:07: Glucometer 153H 12/30/22 05:50: Glucometer 191H 12/30/22 10:36: Glucometer 226H Microbiology 12/27/22 Urine Culture - Final, Complete NO GROWTH Home Meds Active Cefdinir 300 Mg Capsule 300 Mg PO BID 5 Days Flomax (Tamsulosin HCl) 0.4 Mg Cap 0.8 Mg PO DAILY@1800 30 Days Aspirin EC (Aspirin) 81 Mg Tablet. 81 Mg PO DAILY 30 Days Reported Rosuvastatin Calcium 40 Mg Tablet 20 Mg PO HS LAST FILLED 08-10-2022 #45/90 DAY SUPPLY Novolog (Insulin Aspart) 100 Unit/Ml Susp Units SQ AC USES PER SLIDING SCALE Omeprazole 20 Mg Tablet. 20 Mg PO DAILY PRN Hydrochlorothiazide 25 Mg Tablet 25 Mg PO DAILY LAST FILLED 08-05-2022 #90/90 DAY SUPPLY Assessment/Pt Instructions see instructions Discharge Planning: >30 minutes discharge planning Discharge Instructions Discharge Diet: No Restrictions Activity as Tolerated: Yes Discharge Physical Examination Vital Signs Vital Signs Date Time Temp Pulse Resp B/P (MAP) Pulse Ox O2 Delivery O2 Flow Rate FiO2 12/30/22 13:41 36.0 87 16 149/69 98 Room Air General Appearance: No Apparent Distress, WD/WN Respiratory: Lungs Clear, No Respiratory Distress Cardiovascular: Regular Rate, Rhythm, No Murmur Gastrointestinal: Normal Bowel Sounds, Soft Extremity: Normal Inspection, No Pedal Edema Neurologic/Psychiatric: Alert, Normal Mood/Affect Allergies: Coded Allergies: Sulfa (Sulfonamide Antibiotics) (Unverified Allergy, Severe, HIVES, SOA, 01/08/19) Copy Copies To 1: JASSI NEAL MD Discharge Summary Date of Admission Dec 27, 2022 at 17:56 Date of Discharge Dec 30, 2022 at 13:45 Discharge Date: Dec 30, 2022 Discharge Time: 13:45 Admission Diagnosis Debility Discharge Diagnosis Debility UTI BPH T2DM (1) Debility Status: Acute (2) UTI (urinary tract infection) Status: Acute (3) BPH with urinary obstruction Status: Acute (4) T2DM (type 2 diabetes mellitus) Status: Chronic Qualifiers: CARMITA VILLALPANDO MD Dec 30, 2022 19:07
== END 2022-12-30 13:45 | disposition home health service (06) ==
LOC: EDUNIT# 15:53 → ER 15:56 → 4TH 17:56
PROVIDERS: ADMIT Internal Medicine; ATTEND Internal Medicine
DX: R53.81 Other malaise (principal); N39.0 Urinary tract infection, site not specified; N40.0 Benign prostatic hyperplasia without lower urinary tract symptoms; E11.9 Type 2 diabetes mellitus without complications; K59.00 Constipation, unspecified; R31.0 Gross hematuria; R31.9 Hematuria, unspecified; Z87.891 Personal history of nicotine dependence; Z79.4 Long term (current) use of insulin; Z79.899 Other long term (current) drug therapy
CPT/HCPCS: 36415; 80048; 81000; 82947; 83735; 85025; 87088; 96372; G0378

== ENCOUNTER 2023-01-07 10:51 | Inpatient (IN) | payer OTHER ==
[~2023-01-07] VITALS: Ht 177 cm; Wt 90.0 kg
[2023-01-07] MEDS ORDERED: fentaNYL INJECTION 100 MCG/2 ML VIAL IVP ONE (11:15)
--- NOTE | 2023-01-07 11:27 | ED Fall/Injury ---
General Chief Complaint: Trauma EMS/Air Arrival Activat Stated Complaint: FALL Nursing Triage Note: PT ARRIVED PER EMS. PT CO OF VERTIGO FELL, STATES HAS PAIN IN LOWER LUMBAR AREA TO L BUTTOCKS. PT WAS RECENTLY RELEASED FROM HOSP. PT HAS A LEON CATH FROM HOME THAT HAS DK RED URING IN BAG Source: patient, EMS Exam Limitations: no limitations (MARINA NEWBERRY APRN) History of Present Illness Date Seen by Provider: Jan 07, 2023 Time Seen by Provider: 11:00 Initial Comments 87-year-old male presents to the ER via EMS after a fall which occurred at 10 A M. Patient reports he was walking, he became tired and his legs became weak causing him to fall. He denies dizziness or syncope prior to the fall. He complains of lower back pain, coccyx pain, and bilateral hip pain. States that he also hit his head, but states he did not lose consciousness. He denies any head or neck pain. He reports that he was unable to get up by himself after the fall. Patient lives at home alone. He was recently admitted for urinary tract infection and weakness, he is still completing his antibiotic for this infection. He has a Leon catheter in place. Gross hematuria noted in the bag. He states that he has had intermittent hematuria since the Leon was placed. He is scheduled to see Dr. Almendarez, urology, this coming 01/09/23. Patient's daughter later called and informed this provider that patient has had several falls recently. Approximately 3 falls within the last week. She states that they have been trying to get him into a nursing facility since his most recent admission, but have been having difficulty due to Medicare not wanting to pay. During patient's last admission, he refused fpc placement, but he did agree to home health care which was set up for him. (MARINA NEWBERRY APRN) Allergies and Home Medications Allergies Coded Allergies: Sulfa (Sulfonamide Antibiotics) (Unverified Allergy, Severe, HIVES, SOA, 01/08/19) morphine (Verified Allergy, Unknown, pt has tolerated hydromorphone, 01/07/23) Patient Home Medication List Home Medication List Reviewed: Yes (MARINA NEWBERRY APRN) Aspirin (Aspirin EC) 81 Mg Tablet., 81 MG PO DAILY Prescribed by: CARMITA VILLALPANDO on 12/27/22 1010 Last Action: Continued Hydrochlorothiazide (Hydrochlorothiazide) 25 Mg Tablet, 25 MG PO DAILY, (Reported) Entered as Reported by: LEA MARTINEZ on 01/08/19 152 Last Action: Held Insulin Aspart (Novolog) 100 Unit/Ml Susp, UNITS SQ AC, (Reported) Entered as Reported by: LEA MARTINEZ on 01/08/19 152 Last Action: Held Omeprazole (Omeprazole) 20 Mg Tablet.dr, 20 MG PO DAILY PRN for HEARTBURN, (Reported) Entered as Reported by: LEA MARTINEZ on 01/08/19 152 Last Action: Converted Rosuvastatin Calcium (Rosuvastatin Calcium) 40 Mg Tablet, 20 MG PO HS, (Reported) Entered as Reported by: DYLAN WINSTON on 12/26/22 1646 Last Action: Converted Tamsulosin HCl (Flomax) 0.4 Mg Cap, 0.8 MG PO DAILY@1800 Prescribed by: CARMITA VILLALPANDO on 12/27/22 1010 Last Action: Continued Discontinued Medications Cefdinir (Cefdinir) 300 Mg Capsule, 300 MG PO BID Discontinued Reason: No Longer Taking Prescribed by: CARMITA VILLALPANDO on 12/27/22 1103 Last Action: Discontinued Review of Systems Review of Systems Constitutional: see HPI (MARINA NEWBERRY APRN) Past Lnbdwax-Gkvasz-Bknndo Hx Patient Social History Tobacco Use?: No Substance use?: No Alcohol Use?: No Pt feels they are or have been: No (MARINA NEWBERRY APRN) Immunizations Up To Date First/Initial COVID19 Vaccinat: vaccinated Second COVID19 Vaccination Maurice: vaccinated Third COVID19 Vaccination Date: vaccinated (MARINA NEWBERRY APRN) Past Medical History Surgery/Hospitalization HX: PMH: HTN, HIGH CHOLESTEROL SX: GALLBLADDER, APPENDIX Surgeries: Yes (CATARACT SX) Appendectomy, Coronary Stent, Gallbladder Respiratory: No Cardiac: Yes (STENT) Coronary Artery Disease, Heart Attack, Hypertension Neurological: Yes (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; CVA w LT SIDE FACIAL DROOP) Stroke Reproductive Disorders: No Genitourinary: Yes (Indwelling catheter) Gastrointestinal: Yes (DIABETIC GASTROPARESIS ) Diverticulosis Musculoskeletal: Yes Arthritis Endocrine: Yes Diabetes, Insulin dep Cancer: No Psychosocial: Yes Anxiety Blood Disorders: No (MARINA NEWBERRY APRN) Family Medical History No Pertinent Family Hx (MARINA NEWBERRY APRN) Physical Exam Vital Signs Vital Signs - First Documented 01/07/23 01/07/23 10:53 13:52 Pulse 94 Resp 22 B/P (MAP) 129/68 (88) Pulse Ox 95 O2 Delivery Room Air Capillary Refill : Less Than 3 Seconds Height, Weight, BMI Height: 5'10" Weight: 230lbs. oz. 104.580024ya; 28.00 BMI Method:Stated General Appearance: WD/WN, no apparent distress HEENT: PERRL/EOMI, TMs normal (Unable to visualize due to cerumen) Neck: non-tender, full range of motion, supple, normal inspection Cardiovascular: regular rate, rhythm Respiratory: lungs clear, normal breath sounds, no respiratory distress, no accessory muscle use Back: vertebral tenderness (Lumbar spine), other (No hip tenderness) Extremities: non-tender, normal inspection, normal capillary refill, pedal edema, other (Sensation intact distally) Neurologic/Psychiatric: alert, normal mood/affect Skin: normal color, warm/dry (MARINA NEWBERRY APRN) Progress/Results/Core Measures Results/Orders Lab Results Laboratory Tests Test 01/07/23 10:55 01/07/23 12:35 Range/Units White Blood Count 3.4 L 4.3-11.0 10^3/uL Red Blood Count 3.73 L 4.30-5.52 10^6/uL Hemoglobin 10.1 L 13.3-17.7 g/dL Hematocrit 33 L 40-54 % Mean Corpuscular Volume 88 80-99 fL Mean Corpuscular Hemoglobin 27 25-34 pg Mean Corpuscular Hemoglobin Concent 31 L 32-36 g/dL Red Cell Distribution Width 14.0 10.0-14.5 % Platelet Count 164 130-400 10^3/uL Mean Platelet Volume 10.0 9.0-12.2 fL Immature Granulocyte % (Auto) 0 % Neutrophils (%) (Auto) 62 42-75 % Lymphocytes (%) (Auto) 28 12-44 % Monocytes (%) (Auto) 7 0-12 % Eosinophils (%) (Auto) 2 0-10 % Basophils (%) (Auto) 1 0-10 % Neutrophils # (Auto) 2.1 1.8-7.8 10^3/uL Lymphocytes # (Auto) 0.9 L 1.0-4.0 10^3/uL Monocytes # (Auto) 0.2 0.0-1.0 10^3/uL Eosinophils # (Auto) 0.1 0.0-0.3 10^3/uL Basophils # (Auto) 0.0 0.0-0.1 10^3/uL Immature Granulocyte # (Auto) 0.0 0.0-0.1 10^3/uL Sodium Level 141 135-145 MMOL/L Potassium Level 3.8 3.6-5.0 MMOL/L Chloride Level 108 H 98-107 MMOL/L Carbon Dioxide Level 23 21-32 MMOL/L Anion Gap 10 5-14 MMOL/L Blood Urea Nitrogen 17 7-18 MG/DL Creatinine 0.97 0.60-1.30 MG/DL Estimat Glomerular Filtration Rate 77 BUN/Creatinine Ratio 18 Glucose Level 260 H 70-105 MG/DL Calcium Level 9.0 8.5-10.1 MG/DL Glucometer 239 H 70-110 MG/DL My Orders Orders - MARINA NEWBERRY [employer]ATE Fentanyl Injection (Fentanyl Injection (01/07/23 11:15) Sacrum And Coccyx (01/07/23 11:10) Lumbar Spine - 2-3 Views (01/07/23 11:10) Pelvis/Ricky Hips 5> Views (01/07/23 11:10) Ct Head/Cervical Spine Wo (01/07/23 11:10) Urine Culture (01/07/23 11:38) Ct Lumbar Spine Wo (01/07/23 12:03) Hydromorphone Injection (Hydromorphone (01/07/23 12:45) Hydromorphone Injection (Hydromorphone (01/07/23 13:30) Ed Admission (Communication) (01/07/23 13:27) Cbc And Automated Diff (01/07/23 13:27) Basic Metabolic Panel (01/07/23 13:27) Code/Resuscitation (01/07/23 13:30) Medications Given in ED Current Medications Medications Dose Ordered Sig/Ayaz Route Start Time Stop Time Status Last Admin Dose Admin Fentanyl Citrate 50 mcg ONCE ONCE IVP 12/3/23 11:15 01/07/23 11:16 DC 01/07/23 11:26 50 MCG Hydromorphone HCl 0.25 mg ONCE ONCE IVP 01/07/23 12:45 01/07/23 12:46 DC 01/07/23 12:53 0.25 MG Hydromorphone HCl 0.5 mg ONCE ONCE IV 01/07/23 13:30 01/07/23 13:31 DC 01/07/23 13:40 0.5 MG Vital Signs/I&O 01/07/23 01/07/23 10:53 13:52 Pulse 94 85 Resp 22 16 B/P (MAP) 129/68 (88) 110/79 Pulse Ox 95 O2 Delivery Room Air Blood Pressure Mean: 88 (MARINA NEWBERRY APRN) Progress Progress Note : Progress Note Patient seen and evaluated, resting comfortably in bed, no acute distress. Based on exam and symptoms, I am concerned for fracture or hip fracture or dislocation. Workup initiated including x-ray of bilateral hips and pelvis, x- ray of sacrum and coccyx, lumbar spine CT, head C-spine CT. Fentanyl ordered for pain. Due to gross hematuria in Leon bag, urine culture ordered. I deferred ordering a urinalysis because his 2 previous urinalysis showed possible urinary tract infections, but both cultures did not have any growth. Patient is currently also on an antibiotic that was prescribed due to the previous urinalysis showing possible urinary tract infection. Patient is supposed to see Dr. Almendarez, urology, on Sunday, hopefully the urine culture will result by then. [address] shows no acute osseous abnormality. Does show moderate to severe multilevel degenerative changes with degenerative anterolisthesis and retrolisthesis. Lumbar x-ray shows no osseous abnormality with moderate multilevel degenerative changes. Sacrum and coccyx x-ray shows no acute osseous abnormality. Does show degenerative changes. Pelvic x-ray shows no acute osseous abnormality, does show scattered degenerative changes. There is also significant background vascular calcifications. CT head and cervical spine shows no hemorrhage, mass, or large territorial ischemia. No acute fracture or dislocation of the cervical spine. Does show moderate degenerative changes of the cervical spine. I ordered another dose of pain medication for patient due to patient still reporting pain. Will attempt to walk patient after administration of pain medication. 1322 approximately 20 minutes after administration of Dilaudid, myself and the cytotechnologist supervisor, Tabitha, attempted to walk patient. Patient had to apply significant weight to myself and the tech. Patient was unable to walk, took a couple of shuffling steps. He was very unsteady. Patient also complained of significant continued pain with movement and walking. Patient also reported continued pain while lying in bed prior to getting up after administration of Dilaudid. Due to significant pain, inability to walk even with assistance, and reports of several falls within the last week, I do not think patient is safe to go home. Patient's daughter is also working on getting him placed in a fpc due to recent falls and weakness. I called and spoke with Dr. Ayers, hospitalist, regarding patient. She agrees to admit patient. She would like him to be admitted as an inpatient to the [facility] floor due to weakness, intractable pain, and frequent falls. She would like me to place admission orders including pain medication and PT evaluation. I have also ordered a CBC and BMP. Patient agrees to admission. Another dose of Dilaudid has been ordered for continued pain. Patient would like to be a full code. (MARINA NEWBERRY APRN) Diagnostic Imaging Diagonstic Imaging: CT Plain Films/CT/US/NM/MRI: other (lumbar spine) Comments [facility] [place] NAME: JASSI COLE MED REC#: [id number] PT STATUS: REG ER : 1935 PHYSICIAN: MARINA NEWBERRY APRN ADMIT DATE: 01/07/23/ER Signed Date of Exam:01/07/23 CT LUMBAR SPINE WO PROCEDURE: CT lumbar spine without contrast. TECHNIQUE: Multiple contiguous axial images were obtained through the lumbar spine without the use of intravenous contrast. Sagittal and coronal reformations were then performed. Auto Exposure Controls were utilized during the CT exam to meet ALARA standards for radiation dose reduction. INDICATION: Pain, fall. COMPARISON: Imaging from the same date. FINDINGS: Five lumbar-type vertebral bodies are present. Grade 1 anterolisthesis of L4 on L5 with minimal retrolisthesis of L3 on L4. Besides mild endplate degenerative changes, vertebral body heights are well maintained. Low-grade disc space height loss with associated vacuum disc phenomenon. Multilevel anterior and lateral osteophyte formation. No acute fracture or dislocation. No destructive osseous process. Significant scattered facet joint degenerative changes are noted. There is resulting multilevel central canal and neural foraminal stenosis. This includes relatively high-grade central canal stenosis at the L3/L4 and L4/L5 level. Relatively high-grade neural foraminal stenosis is also noted at the L3/L4 and L4/L5 levels. Background vascular calcifications. Hypodensity with associated internal fat density is noted associated with the inferior pole of the right kidney, which is partially visualized. This appears unchanged since the most recent CT of the abdomen and pelvis. Background vascular calcifications. Leon catheter within a decompressed urinary bladder. IMPRESSION: No acute osseous abnormality with [id number] multilevel degenerative changes with degenerative anterolisthesis and retrolisthesis as above. Additional stable findings as above. Dictated by: Dictated on workstation # [id number] Dict: 01/07/23 1221 Trans: 01/07/23 1307 [id number] Interpreted by: AGUSTÍN DAVEY MD Electronically signed by: AGUSTÍN DAVEY MD 01/07/23 1307 Diagonstic Imaging: Xray Plain Films/CT/US/NM/MRI: other (sacrum and coccyx) Comments [facility] [place] NAME: JASSI COLE [facility] REC#: [id number] PT STATUS: REG ER : 1935 PHYSICIAN: MARINA NEWBERRY APRN ADMIT DATE: 01/07/23/ER Signed Date of Exam:01/07/23 SACRUM AND COCCYX INDICATION: Pain. COMPARISON: Imaging from the same date and from 12/10/2022. TECHNIQUE: Three radiographs of the sacrum and coccyx dated 01/07/2023. FINDINGS: Degenerative changes within the partially visualized lower lumbar spine. The sacroiliac joints and pubic symphysis appear intact. Stable grade 1 anterolisthesis of L4 on L5. No acute fracture. No destructive osseous process. No suspicious radiopaque foreign body. IMPRESSION: No acute osseous abnormality with scattered degenerative changes present. Dictated by: Dictated on workstation # [id number] Dict: 01/07/23 1207 Trans: 01/07/23 1307 [id number] Interpreted by: AGUSTÍN DAVEY MD Electronically signed by: AGUSTÍN DAVEY MD 01/07/23 1307 Diagonstic Imaging: Xray Plain Films/CT/US/NM/MRI: pelvis, hip Comments [facility] [place] NAME: DOUGLASJASSI Lund [facility] REC#: [id number] PT STATUS: REG ER : 1935 PHYSICIAN: MARINA NEWBERRY APRN ADMIT DATE: 01/07/23/ER Signed Date of Exam:01/07/23 PELVIS/RICKY HIPS 5> VIEWS INDICATION: Pain, falls. COMPARISON: Imaging from the same date as well as from 12/10/2022. TECHNIQUE: Five radiographs of the pelvis and bilateral hips dated 01/07/2023. FINDINGS: No significant degenerative changes within the partially visualized lower lumbar spine. The sacroiliac joints and pubic symphysis appear intact. No acute fracture or dislocation. No destructive osseous process. Moderate degenerative changes of the right hip with moderate joint space narrowing and osteophyte formation. Mild degenerative changes of the left hip. Significant background vascular calcifications. No suspicious radiopaque foreign body. Multiple phleboliths within the lower pelvis. IMPRESSION: No acute osseous abnormality with moderate scattered degenerative changes. Significant background vascular calcifications. Dictated by: Dictated on workstation # [id number] Dict: 01/07/23 1212 Trans: 01/07/23 130 [id number] Interpreted by: AGUSTÍN DAVEY MD Electronically signed by: AGUSTÍN DAVEY MD 01/07/23 1307 Diagonstic Imaging: Xray Plain Films/CT/US/NM/MRI: other (lumbar spine) Comments [facility] [place] NAME: DOUGLASJASSI Lund [facility] REC#: [id number] PT STATUS: REG ER : 1935 PHYSICIAN: MARINA NEWBERRY APRN ADMIT DATE: 01/07/23/ER Signed Date of Exam:01/07/23 LUMBAR SPINE - 2-3 VIEWS INDICATION: Back pain. COMPARISON: Imaging from the same date and from 12/10/2022. TECHNIQUE: Three radiographs of the lumbar spine dated 01/07/2023. FINDINGS: Five lumbar-type vertebral bodies are present. Stable grade 1 anterolisthesis of L4 on L5 with minimal retrolisthesis of L3 on L4. This is unchanged from the prior examination. No new anterolisthesis or retrolisthesis. Vertebral body heights are well-maintained. Mild scattered disc space height loss, greatest within the lower lumbar spine. Multilevel anterior osteophyte formation, greatest at L1/L2. Scattered facet joint degenerative changes, greatest within the lower lumbar spine. Multilevel lateral osteophytes. The sacroiliac joints are intact. Moderate background vascular calcifications. No acute fracture. IMPRESSION: No acute osseous abnormality with moderate multilevel degenerative changes. Dictated by: Dictated on workstation # [id number] Dict: 01/07/23 1209 Trans: 01/07/23 1307 [id number] Interpreted by: AGUSTÍN DAVEY MD Electronically signed by: AGUSTÍN DAVEY MD 01/07/23 1307 Diagonstic Imaging: CT Plain Films/CT/US/NM/MRI: c-spine, head Comments [facility] [place] NAME: DOUGLASJASSI Ashely [facility] REC#: [id number] PT STATUS: REG ER : 1935 PHYSICIAN: MARINA NEWBERRY APRN ADMIT DATE: 01/07/23/ER Signed Date of Exam:01/07/23 CT HEAD/CERVICAL SPINE WO PROCEDURE: CT head and CT cervical spine without contrast. TECHNIQUE: Multiple contiguous axial images were obtained through the brain and cervical spine without the use of intravenous contrast. Sagittal and coronal reformations through the cervical spine were then performed. Auto Exposure Controls were utilized during the CT exam to meet ALARA standards for radiation dose reduction. INDICATION: Fall. Vertigo. Head and neck pain. COMPARISON: 03/28/2019. FINDINGS: CT HEAD: No large acute territorial ischemia, mass, or hemorrhage. No midline shift or mass effect. Decreased attenuation is seen in the periventricular and subcortical white matter. The ventricles and cortical sulci are prominent. The basilar cisterns are patent and unremarkable. The calvarium is intact. The visualized paranasal sinuses are clear. CT CERVICAL SPINE: No acute fracture or dislocation is seen in the cervical spine. No focal osseous lesions. Vertebral body heights are well-maintained. The craniocervical junction is well-maintained. Moderate degenerative changes are seen in the cervical spine with disc osteophyte complexes and uncovertebral arthropathy. Soft tissues of the neck are unremarkable. The included lungs are clear. IMPRESSION: 1. No hemorrhage or focal intra-axial mass. No CT evidence of large acute territorial ischemia. 2. No acute fracture or dislocation in the cervical spine. Dictated by: Dictated on workstation # [id number] Dict: 01/07/23 1148 Trans: 01/07/23 1159 [id number] Interpreted by: OCTAVIO KHAN DO Electronically signed by: OCTAVIO KHAN DO 01/07/23 1159 (MARINA NEWBERRY APRN) Departure Communication (Admissions) Time/Spoke to Admitting Phy: 13:22 Dr. Ayers, hospitalist, see progress note. (MARINA NEWBERRY APRN) Impression Primary Impression: Frequent falls Additional Impressions: Weakness Intractable pain Coccyx contusion Qualified Codes: S30.0XXA - Contusion of lower back and pelvis, initial encounter Lumbar pain Gross hematuria Disposition: ADMITTED INPATIENT Condition: Stable Admissions Decision to Admit Reason: Admit from ER (General) Decision to Admit/Date: Jan 07, 2023 Time/Decision to Admit Time: 13:22 (MARINA NEWBERRY APRN) Departure-Patient Inst. Referrals: EPIFANIO RODRIGUEZ MD (PCP/Family) Primary Care Physician ATTENDING PHYSICIAN NOTE: I was physically present as attending physician in the emergency department during the care of this patient. I received report from EMS which was passed on to Marina Newberry NP. I did not personally interview or examine this patient. I was not otherwise directly involved in the decision making or delivery of care for this patient. (ALBERTO POWERS MD) MARINA NEWBERRY APRN Jan 07, 2023 11:27 ALBERTO POWERS MD Jan 09, 2023 13:30
--- NOTE | 2023-01-07 11:54 | Diagnostic Imaging Report ---
PROCEDURE: CT head and CT cervical spine without contrast. TECHNIQUE: Multiple contiguous axial images were obtained through the brain and cervical spine without the use of intravenous contrast. Sagittal and coronal reformations through the cervical spine were then performed. Auto Exposure Controls were utilized during the CT exam to meet ALARA standards for radiation dose reduction. INDICATION: Fall. Vertigo. Head and neck pain. COMPARISON: 03/28/2019. FINDINGS: CT HEAD: No large acute territorial ischemia, mass, or hemorrhage. No midline shift or mass effect. Decreased attenuation is seen in the periventricular and subcortical white matter. The ventricles and cortical sulci are prominent. The basilar cisterns are patent and unremarkable. The calvarium is intact. The visualized paranasal sinuses are clear. CT CERVICAL SPINE: No acute fracture or dislocation is seen in the cervical spine. No focal osseous lesions. Vertebral body heights are well-maintained. The craniocervical junction is well-maintained. Moderate degenerative changes are seen in the cervical spine with disc osteophyte complexes and uncovertebral arthropathy. Soft tissues of the neck are unremarkable. The included lungs are clear. IMPRESSION: 1. No hemorrhage or focal intra-axial mass. No CT evidence of large acute territorial ischemia. 2. No acute fracture or dislocation in the cervical spine. Dictated by: Dictated on workstation # [id number]
--- NOTE | 2023-01-07 12:22 | Diagnostic Imaging Report ---
INDICATION: Pain. COMPARISON: Imaging from the same date and from 12/10/2022. TECHNIQUE: Three radiographs of the sacrum and coccyx dated 01/07/2023. FINDINGS: Degenerative changes within the partially visualized lower lumbar spine. The sacroiliac joints and pubic symphysis appear intact. Stable grade 1 anterolisthesis of L4 on L5. No acute fracture. No destructive osseous process. No suspicious radiopaque foreign body. IMPRESSION: No acute osseous abnormality with scattered degenerative changes present. Dictated by: Dictated on workstation # [id number]
--- NOTE | 2023-01-07 12:24 | Diagnostic Imaging Report ---
INDICATION: Back pain. COMPARISON: Imaging from the same date and from 12/10/2022. TECHNIQUE: Three radiographs of the lumbar spine dated 01/07/2023. FINDINGS: Five lumbar-type vertebral bodies are present. Stable grade 1 anterolisthesis of L4 on L5 with minimal retrolisthesis of L3 on L4. This is unchanged from the prior examination. No new anterolisthesis or retrolisthesis. Vertebral body heights are well-maintained. Mild scattered disc space height loss, greatest within the lower lumbar spine. Multilevel anterior osteophyte formation, greatest at L1/L2. Scattered facet joint degenerative changes, greatest within the lower lumbar spine. Multilevel lateral osteophytes. The sacroiliac joints are intact. Moderate background vascular calcifications. No acute fracture. IMPRESSION: No acute osseous abnormality with moderate multilevel degenerative changes. Dictated by: Dictated on workstation # [id number]
--- NOTE | 2023-01-07 12:29 | Diagnostic Imaging Report ---
INDICATION: Pain, falls. COMPARISON: Imaging from the same date as well as from 12/10/2022. TECHNIQUE: Five radiographs of the pelvis and bilateral hips dated 01/07/2023. FINDINGS: No significant degenerative changes within the partially visualized lower lumbar spine. The sacroiliac joints and pubic symphysis appear intact. No acute fracture or dislocation. No destructive osseous process. Moderate degenerative changes of the right hip with moderate joint space narrowing and osteophyte formation. Mild degenerative changes of the left hip. Significant background vascular calcifications. No suspicious radiopaque foreign body. Multiple phleboliths within the lower pelvis. IMPRESSION: No acute osseous abnormality with moderate scattered degenerative changes. Significant background vascular calcifications. Dictated by: Dictated on workstation # [id number]
--- NOTE | 2023-01-07 12:34 | Diagnostic Imaging Report ---
PROCEDURE: CT lumbar spine without contrast. TECHNIQUE: Multiple contiguous axial images were obtained through the lumbar spine without the use of intravenous contrast. Sagittal and coronal reformations were then performed. Auto Exposure Controls were utilized during the CT exam to meet ALARA standards for radiation dose reduction. INDICATION: Pain, fall. COMPARISON: Imaging from the same date. FINDINGS: Five lumbar-type vertebral bodies are present. Grade 1 anterolisthesis of L4 on L5 with minimal retrolisthesis of L3 on L4. Besides mild endplate degenerative changes, vertebral body heights are well maintained. Low-grade disc space height loss with associated vacuum disc phenomenon. Multilevel anterior and lateral osteophyte formation. No acute fracture or dislocation. No destructive osseous process. Significant scattered facet joint degenerative changes are noted. There is resulting multilevel central canal and neural foraminal stenosis. This includes relatively high-grade central canal stenosis at the L3/L4 and L4/L5 level. Relatively high-grade neural foraminal stenosis is also noted at the L3/L4 and L4/L5 levels. Background vascular calcifications. Hypodensity with associated internal fat density is noted associated with the inferior pole of the right kidney, which is partially visualized. This appears unchanged since the most recent CT of the abdomen and pelvis. Background vascular calcifications. Ellis catheter within a decompressed urinary bladder. IMPRESSION: No acute osseous abnormality with nnpxleaa-pn-[id number] multilevel degenerative changes with degenerative anterolisthesis and retrolisthesis as above. Additional stable findings as above. Dictated by: Dictated on workstation # [id number]
[2023-01-07] MEDS ORDERED: HYDROmorphone INJECTION 2 MG/ML VIAL IVP ONE (12:45)
[2023-01-07] MEDS ORDERED: HYDROmorphone INJECTION 2 MG/ML VIAL IV ONE (13:30)
[2023-01-07 13:37] LABS: BASOPHILS % (AUTO) 1 % (0-10); EOSINOPHILS # (AUTO) 0.1 10^3/uL (0.0-0.3); EOSINOPHILS % (AUTO) 2 % (0-10); HEMATOCRIT 33 % (40-54); HEMOGLOBIN 10.1 g/dL (13.3-17.7); LYMPHOCYTES # (AUTO) 0.9 10^3/uL (1.0-4.0); LYMPHOCYTES % (AUTO) 28 % (12-44); MEAN CORPUSCULAR HEMOGLOBIN 27 pg (25-34); MEAN CORPUSCULAR HGB CONC 31 g/dL (32-36); MEAN CORPUSCULAR VOLUME 88 fL (80-99); MONOCYTES # (AUTO) 0.2 10^3/uL (0.0-1.0); MONOCYTES % (AUTO) 7 % (0-12); NEUTROPHILS # (AUTO) 2.1 10^3/uL (1.8-7.8); NEUTROPHILS % (AUTO) 62 % (42-75); PLATELET COUNT 164 10^3/uL (130-400); WHITE BLOOD COUNT 3.4 10^3/uL (4.3-11.0)
[2023-01-07 13:41] LABS: POTASSIUM 3.8 MMOL/L (3.6-5.0)
[2023-01-07 13:46] LABS: CREATININE SERUM 0.97 MG/DL (0.60-1.30)
[2023-01-07 14:47] VITALS: BP 136/66
[2023-01-07] MEDS ORDERED: HYDROmorphone INJECTION 2 MG/ML VIAL IV PRN (15:00)
[2023-01-07] MEDS ORDERED: FAMOTIDINE 20 MG TABLET PO PRN (15:00)
[2023-01-07] MEDS ORDERED: CALCIUM CARBONATE 500 MG CHEW TABLET PO PRN (15:00)
[2023-01-07] MEDS ORDERED: ANTACID SUSPENSION 30 ML UDC PO PRN (15:00)
[2023-01-07] MEDS ORDERED: diphenhydrAMINE 25 MG TABLET PO PRN (15:00)
[2023-01-07] MEDS ORDERED: HYDROcodone/ACETAMINOPHEN 5 MG/325 MG TABLET PO PRN (15:00)
[2023-01-07] MEDS ORDERED: ACETAMINOPHEN 325 MG TABLET PO PRN (15:00)
[2023-01-07] MEDS ORDERED: diphenhydrAMINE INJ 50 MG/ML VIAL IV PRN (15:00)
[2023-01-07] MEDS ORDERED: HYDROmorphone INJECTION 2 MG/ML VIAL IVP PRN (15:00)
[2023-01-07] MEDS ORDERED: ONDANSETRON INJECTION 4 MG/2 ML (SDV) IV PRN ×2 (15:00)
[2023-01-07 15:35] VITALS: BP 127/68
[2023-01-07] MEDS: ENOXAPARIN 40 MG/0.4 ML SYRINGE SC SCH (16:21)
[2023-01-07 19:57] VITALS: BP 149/65
[2023-01-07] MEDS: HYDROcodone/ACETAMINOPHEN 5 MG/325 MG TABLET PO PRN (21:17)
[2023-01-07 23:44] VITALS: BP 160/74
[2023-01-08 04:22] VITALS: BP 155/63
[2023-01-08 05:45] LABS: HEMATOCRIT 29 % (40-54); HEMOGLOBIN 9.2 g/dL (13.3-17.7); MEAN CORPUSCULAR HEMOGLOBIN 27 pg (25-34); MEAN CORPUSCULAR HGB CONC 32 g/dL (32-36); MEAN CORPUSCULAR VOLUME 86 fL (80-99); MEAN PLATELET VOLUME 9.8 fL (9.0-12.2); PLATELET COUNT 168 10^3/uL (130-400)
[2023-01-08 06:00] LABS: POTASSIUM 3.7 MMOL/L (3.6-5.0)
[2023-01-08 06:01] LABS: CALCIUM 8.6 MG/DL (8.5-10.1)
[2023-01-08 06:06] LABS: CREATININE SERUM 0.85 MG/DL (0.60-1.30)
[2023-01-08 08:07] VITALS: BP 111/55
--- NOTE | 2023-01-08 08:46 | Physical Therapy Evaluation ---
PT Evaluation-General Medical Diagnosis Admission Date Jan 07, 2023 at 14:30 Medical Diagnosis: coccyx contusion/fall Onset Date: Jan 07, 2023 Therapy Diagnosis Therapy Diagnosis: generalized weakness/impaired mobility Height/Weight Height (Feet): 5 Height (Inches): 10 Weight (Pounds): 230 Precautions Precautions/Isolations: Fall Prevention, Standard Precautions Referral Physician: Andria Reason for Referral: Evaluation/Treatment Medical History Pertinent Medical History: CAD, DM, HTN, [place] Current History EMS secondary to falls Reviewed History: Yes Social History Home: Single Level Current Living Status: Alone Prior Prior Level of Function SCALE: Activities may be completed with or without assistive devices. 1-Losybremrt-raetmuh completes the activity by him/herself with no assistance from a helper. 5-Set-up or Clean-up Assistance-helper sets up or cleans up; patient completes activity. [place] assists only prior to or following the activity. 4-Supervision or Touching Assistance-helper provides verbal cues and/or touching/steadying and/or contact guard assistance as patient completes activity. Assistance may be provided throughout the activity or intermittently. 3-Partial/Moderate Assistance-helper does LESS THAN HALF the effort. [place] lifts, holds or supports trunk or limbs, but provides less than half the effort. 2-Substantial/Maximal Assistance-helper does MORE THAN HALF the effort. [place] lifts or holds trunk or limbs and provides more than half the effort. 2-Ntzmiykzd-ynkkid does ALL the effort. Patient does none of the effort to complete the activity. Or, the assistance of 2 or more helpers is required for the patient to complete the activity. If activity was not attempted, code reason: 7-Patient Refused. 9-Not Applicable-not attempted and the patient did not perform the activity bef ore the current illness, exacerbation or injury. 10-Not Attempted due to Environmental Limitations-(lack of equipment, weather r estraints, etc.). 88-Not Attempted due to Medical Conditions or Safety Concerns. Bed Mobility: 6 Transfers (B,C,W/C): 6 Gait: 6 Prior Devices Use: Walker (4WW) PT Evaluation-Current Subjective Patient states he is going to a [facility]. Agrees to PT. Objective Patient Orientation: Person, Place, Time, Situation Attachments: Ellis Catheter ROM/Strength ROM Lower Extremities bilateral LE WFL ( noted bilateral hamstring tightness due to inactivity) Strength Lower Extremities 3/5 grossly bilateral LE all planes Integumentary/Posture Bladder Incontinence: Ellis Cath Posture WFL Neuromuscular (Tone, Coordination, Reflexes) diminished coordination due to vertigo and weakness Sensory Vision: Wears Glasses Hearing: Impaired Transfers Sit to Lying (QC): 3 Lying to Sitting/Side of Bed(Q: 3 Sit to Stand (QC): 3 Chair/Wub-xz-Jkzeb Xfer(QC): 3 mod assist with all mobility Gait Mode of Locomotion: Walk Anticipated Mode of Locomotion: Walk Walk 10 feet (QC): 3 Walk 50 ft with 2 Turns(QC): 88 Walk 150 ft (QC): 88 Distance: 10' Gait Assistive Device: FWW Comments/Gait Description very unsteady with Poor balance due to vertigo Balance Sitting Static: Fair Sitting Dynamic: Fair Standing Static: Poor Standing Dynamic: Poor Picking up an Object (QC): 9 Assessment/Needs Patient will benefit from skilled PT to address functional strength and mobility to improve current LOF. Patient is currently experiencing extreme dizziness due to vertigo per his report. Patient up in recliner with chair alarm activated. Patient was able to don socks with set up. Rehab Potential: Fair PT Computer Numerical Control Operator Goals Computer Numerical Control Operator Goals PT Computer Numerical Control Operator Goals Time Frame: Feb 03, 2023 Roll Left & Right (QC): 4 Sit to Lying (QC): 4 Lying-Sitting on Side/Bed(QC): 4 Sit to Stand (QC): 4 Chair/Moz-zi-Hlysn Xfer(QC): 4 Toilet Transfer (QC): 4 Walk 10 feet (QC): 4 Walk 50ft with 2 Turns (QC): 4 PT Plan Problem List Problem List: Activity Tolerance, Functional Strength, Safety, Balance, Gait, Transfer, Bed Mobility Treatment/Plan Treatment Plan: Continue Plan of Care Treatment Plan: Bed Mobility, Education, Functional Activity Rita, Functional Strength, Gait, Safety, Therapeutic Exercise, Transfers Treatment Duration: Feb 03, 2023 Frequency: 5 times per week Estimated Hrs Per Day: .25 hour per day Patient and/or Family Agrees t: Yes Time Time In: 826 Time Out: 837 DATE: Jan 08, 2023 Total Billed Treatment Time: 11 Total Billed Treatment 1 visit [facility] 11 min ROSA SAMSON PT Jan 08, 2023 08:46
[2023-01-08] MEDS ORDERED: PHARMACY TO DOSE SQ SCH (09:00)
[2023-01-08] MEDS ORDERED: inSUlin DETERMIR 1 UNIT/0.01 ML (CHARGE PER UNIT) SQ SCH (09:00)
[2023-01-08] MEDS ORDERED: MECLIZINE 25 MG TABLET PO PRN (09:45)
[2023-01-08] MEDS: inSUlin ASPART 1 UNIT/0.01 ML (PER UNIT) SC SCH ×3 (11:37→21:14)
[2023-01-08 12:00] VITALS: BP 132/79
--- NOTE | 2023-01-08 15:59 | Occupational Therapy Eval ---
OT Evaluation-General/PLF Medical Diagnosis Admission Date Jan 07, 2023 at 14:30 Medical Diagnosis: coccyx contusion/fall Onset Date: Jan 07, 2023 Therapy Diagnosis Therapy Diagnosis: weakness, confusion Height/Weight Height (Feet): 5 Height (Inches): 10 Weight (Pounds): 230 Precautions Precautions/Isolations: Fall Prevention, Standard Precautions Referral Physician: Andria Medical History Pertinent Medical History: CAD, DM, HTN, [place] Additional Medical History recurrent admissions and DC to home unsuccessfully Social History Home: Single Level Current Living Status: Alone ADL-Prior Level of Function SCALE: Activities may be completed with or without assistive devices. 3-Ztxecmjpph-pkweplf completes the activity by him/herself with no assistance from a helper. 5-Set-up or Clean-up Assistance-helper sets up or cleans up; patient completes activity. [place] assists only prior to or following the activity. 4-Supervision or Touching Assistance-helper provides verbal cues and/or touchin g/steadying and/or contact guard assistance as patient completes activity. Assistance may be provided throughout the activity or intermittently. 3-Partial/Moderate Assistance-helper does LESS THAN HALF the effort. [place] lifts, holds or supports trunk or limbs, but provides less than half the effort. 2-Substantial/Maximal Assistance-helper does MORE THAN HALF the effort. [place] lifts or holds trunk or limbs and provides more than half the effort. 3-Gdwtsxfyh-edcwmx does ALL the effort. Patient does none of the effort to complete the activity. Or, the assistance of 2 or more helpers is required for the patient to complete the activity. If activity was not attempted, code reason: 7-Patient Refused. 9-Not Applicable-not attempted and the patient did not perform the activity before the current illness, exacerbation or injury. 10-Not Attempted due to Environmental Limitations-(lack of equipment, weather restraints, etc.). 88-Not Attempted due to Medical Conditions or Safety Concerns. Self Care: Needed Some Help Functional Cognition: Needed Some Help OT Current Status Subjective Patient thinks OT is his daughter Mental Status/Objective Patient Orientation: Person, Confused, Place Attachments: Ellis Catheter Current Glasses/Contacts: Yes Hand Dominance: Right Upper Extremity ROM WFLS Upper Extremity Coordination impaired/fair Upper Extremity Strength +3/5 ADL-Treatment Eating (QC): 5 Oral Hygiene (QC): 5 Shower/Bathe Self (QC): 7 Upper Body Dressing (QC): 3 Lower Body Dressing (QC): 3 On/Off Footwear (QC): 3 Toileting Hygiene (QC): 3 Education OT Patient Education: Correct positioning, Modified ADL techniques, Progress toward Goal/Update tx plan, Purpose of tx/functional activities, Reviewed precautions, Rehab process, Safety issues, Transfer techniques, Use of adapted equipment Teaching Recipient: Patient Teaching Methods: Demonstration, Discussion Response to Teaching: Reinforcement Needed OT Fdc Goals Fdc Goals Eating (QC): 6 Oral Hygiene (QC): 5 Toileting Hygiene (QC): 5 Shower/Bathe Self (QC): 5 Upper Body Dressing (QC): 5 Lower Body Dressing (QC): 5 On/Off Footwear (QC): 5 1=Demonstrate adherence to instructed precautions during ADL tasks. 2=Patient will verbalize/demonstrate understanding of assistive devices/modifications for ADL. 3=Patient will improve strength/tolerance for activity to enable patient to perform ADL's. OT Education/Plan Problem List/Assessment Assessment: Decreased Activ Tolerance, Decreased Safety Aware, Decreased UE Strength, Impaired Coordination, Impaired Funct Balance, Impaired Self-Care Skills Discharge Recommendations Plan/Recommendations: Continue POC Therapy Discharge Recommendati: Post Acute OT Treatment Plan/Plan of Care Treatment,Training & Education: Yes Patient would benefit from OT for education, treatment and training to promote independence in ADL's, mobility, safety and/or upper extremity function for ADL's. Plan of Care: ADL Retraining, Cognitive Retraining, Concurrent Therapy, Functional Mobility, Group Exercise/Act as Ind, UE Funct Exercise/Act, UE Neuromus Re-Ed/Coord Treatment Duration: Jan 19, 2023 Frequency: 3 times per week (3-5 times per week) Estimated Hrs Per Day: .25 hour per day Agreement: Yes Rehab Potential: Fair Time Start Time: 14:40 Stop Time: 14:55 DATE: Jan 08, 2023 Total Time Billed (hr/min): 15 Billed Treatment Time EVM 15 min KOKO STONE OT Jan 08, 2023 15:59
--- NOTE | 2023-01-08 16:08 | History & Physical-Hospitalist ---
History of Present Illness HPI/Chief Complaint Randy Elliott is an 87 year old male with PMH BPH with urinary retention and rice catheter, T2DM, who was admitted after a fall at home. He was recently hospitalized due to a urinary tract infection. He returned home despite concern about weakness. He went home but was too weak and returned to the hospital. He was admitted and worked with therapy. His weakness improved and he was discharged home with home health. He says he has been working with therapy at home. Despite this, he has continued to have falls. He denies lightheadedness and dizziness. His daughter reportedly said he has fallen three times in the pas t week. He has a rice catheter in place and is supposed to follow up with Dr. Almendarez in his clinic tomorrow. Source: patient Exam Limitations: no limitations Date Seen 01/08/23 Time Seen by a Provider: 10:00 Attending Physician Dawit Dempsey MD PCP Admitting Physician: Valerie Ayers MD Attending Physician: Valerie Ayers MD Referring Physician Date of Admission Jan 07, 2023 at 14:30 Home Medications & Allergies Home Medications Reviewed patient Home Medication Reconciliation performed by pharmacy medication reconciliations in shop service technician and/or nursing. Patients Allergies have been reviewed. Allergies Allergies Coded Allergies Sulfa (Sulfonamide Antibiotics) (Unverified Allergy, Severe, HIVES, SOA, 01/08/19) morphine (Verified Allergy, Unknown, pt has tolerated hydromorphone, 01/07/23) Past Awqasxh-Ztzprm-Jjvarq Hx Patient Social History Tobacco Use?: Yes Tobacco type used: Cigarettes Smoking Status: Former Smoker Use of E-Cig and/or Vaping dev: No Substance use?: No Alcohol Use?: No Pt feels they are or have been: No Immunizations Up To Date First/Initial COVID19 Vaccinat: vaccinated Second COVID19 Vaccination Maurice: vaccinated Tetanus Booster (TDap): Unknown Hepatitis A: No Hepatitis B: No Date of Pneumonia Vaccine: Feb 05, 2011 Current Status Advance Directives: Yes Advance Directive Location: Home Communicates: Verbally Primary Language: Guyanese Preferred Spoken Language: Guyanese Is interpretation needed?: No Sensory deficits: Vision impairment, Hearing impairment Implanted or Applied Medical D: Stents Past Medical History Surgeries: Appendectomy, Coronary Stent, Gallbladder Coronary Artery Disease, Heart Attack, Hypertension Stroke Diverticulosis Arthritis Diabetes, Insulin dep Anxiety Blood Disorders: No Family Medical History No Pertinent Family Hx Review of Systems Constitutional: weakness Respiratory: no symptoms reported Cardiovascular: no symptoms reported Gastrointestinal: no symptoms reported Physical Exam Physical Exam Vital Signs Vital Signs - First Documented 01/07/23 01/07/23 01/07/23 10:53 13:52 14:47 Temp 36.0 Pulse 94 Resp 22 B/P (MAP) 129/68 (88) Pulse Ox 95 O2 Delivery Room Air Capillary Refill : Less Than 3 Seconds Height, Weight, BMI Height: 5'10" Weight: 230lbs. oz. 104.914159yc; 28.72 BMI Method:Stated General Appearance: No Apparent Distress, WD/WN HEENT: PERRL/EOMI, Pharynx Normal Neck: Normal Inspection, Supple Respiratory: Lungs Clear, No Respiratory Distress Cardiovascular: Regular Rate, Rhythm, No Murmur Gastrointestinal: Normal Bowel Sounds, Soft Extremity: Normal Inspection, Pedal Edema Neurologic/Psychiatric: Alert, Normal Mood/Affect Skin: Warm/Dry, Pallor Results Results/Procedures Labs Laboratory Tests 01/07/23 10:55 01/08/23 05:22 Patient resulted labs reviewed. Imaging: Reviewed Imaging Report Assessment/Plan Admission Diagnosis Fall Admission Status: Inpatient Order (span 2 midnights) Reason for Inpatient Admission: Debility Assessment and Plan Frequent falls Unable to care for self Lumbar pain Weakness Debility PT/OT SW consulted Needs SNF referral BPH Urinary retention Rice catheter in place Continue home meds T2DM Levemir Sliding scale GERD HLD Continue home meds as able DVT prophylaxis: Lovenox Diagnosis/Problems Diagnosis/Problems (1) Frequent falls Status: Acute (2) Weakness Status: Acute (3) Coccyx contusion Qualifiers: Encounter type: initial encounter Qualified Codes: S30.0XXA - Contusion of lower back and pelvis, initial encounter (4) Lumbar pain Status: Acute (5) Debility Status: Acute (6) BPH with urinary obstruction Status: Acute (7) T2DM (type 2 diabetes mellitus) Status: Chronic (8) Unable to care for self Status: Acute CARMITA VILLALPANDO MD Jan 08, 2023 16:07
[2023-01-08] MEDS ORDERED: PANTOPRAZOLE 20 MG TABLET PO PRN (16:30)
[2023-01-08 16:42] VITALS: BP 139/65
[2023-01-08] MEDS: TAMSULOSIN 0.4 MG (FLOMAX) CAP PO SCH (16:49)
[2023-01-08] MEDS: ENOXAPARIN 40 MG/0.4 ML SYRINGE SC SCH (16:49)
[2023-01-08] MEDS: HYDROcodone/ACETAMINOPHEN 5 MG/325 MG TABLET PO PRN (18:14)
[2023-01-08 20:26] VITALS: BP 165/74
[2023-01-08] MEDS ORDERED: NON-FORMULARY MEDICATION 1 EA EA (Rosuvastatin Calcium 20 MG) PO SCH (21:00)
[2023-01-08] MEDS: ROSUVASTATIN 20 MG TABLET PO SCH (21:14)
[2023-01-08 23:10] VITALS: BP 115/62
[2023-01-09 03:25] VITALS: BP 125/68
[2023-01-09] MEDS: inSUlin ASPART 1 UNIT/0.01 ML (PER UNIT) SC SCH ×4 (05:52→21:57)
[2023-01-09 08:13] VITALS: BP 96/58
[2023-01-09] MEDS: ASPIRIN enteric coated 81MG TABLET PO SCH (08:34)
[2023-01-09] MEDS: inSUlin DETERMIR 1 UNIT/0.01 ML (CHARGE PER UNIT) SQ SCH (09:17)
--- NOTE | 2023-01-09 10:10 | Physical Therapy Daily Note ---
PT Daily Note-Current Subjective Patient agrees to therapy. Pain Section J - Health Conditions 1. Rarely or not at all 2. Occasionally 3. Frequently 4. Almost constantly 8. Unable to answer Pain Effect on Sleep: 1 Pain Interference with Therapy: 1 Pain Interference w/Day-to-Day: 1 Transfers SCALE: Activities may be completed with or without assistive devices. 8-Bnpnggevej-zttxljg completes the activity by him/herself with no assistance from a helper. 5-Set-up or Clean-up Assistance-helper sets up or cleans up; patient completes activity. [place] assists only prior to or following the activity. 4-Supervision or Touching Assistance-helper provides verbal cues and/or touching/steadying and/or contact guard assistance as patient completes activity. Assistance may be provided throughout the activity or intermittently. 3-Partial/Moderate Assistance-helper does LESS THAN HALF the effort. [place] lifts, holds or supports trunk or limbs, but provides less than half the effort. 2-Substantial/Maximal Assistance-helper does MORE THAN HALF the effort. [place] lifts or holds trunk or limbs and provides more than half the effort. 0-Malpydjbq-etagse does ALL the effort. Patient does none of the effort to complete the activity. Or, the assistance of 2 or more helpers is required for the patient to complete the activity. If activity was not attempted, code reason: 7-Patient Refused. 9-Not Applicable-not attempted and the patient did not perform the activity before the current illness, exacerbation or injury. 10-Not Attempted due to Environmental Limitations-(lack of equipment, weather restraints, etc.). 88-Not Attempted due to Medical Conditions or Safety Concerns. Sit to Stand (QC): 3 Gait Training Distance: 50' Walk 10 feet (QC): 3 Walk 50 ft with 2 Turns(QC): 3 Gait Assistive Device: FWW slow, gait sequence with VC's for body placement in FWW Assessment Patient remains up in recliner with needs met and chair alarm activated. PT Back Roll Lathe Operator Goals Alf Goals PT Back Roll Lathe Operator Goals Time Frame: Feb 03, 2023 Roll Left & Right (QC): 4 Sit to Lying (QC): 4 Lying-Sitting on Side/Bed(QC): 4 Sit to Stand (QC): 4 Chair/Hmn-ex-Iydur Xfer(QC): 4 Toilet Transfer (QC): 4 Walk 10 feet (QC): 4 Walk 50ft with 2 Turns (QC): 4 PT Plan Treatment/Plan Treatment Plan: Continue Plan of Care Treatment Plan: Bed Mobility, Education, Functional Activity Rita, Functional Strength, Gait, Safety, Therapeutic Exercise, Transfers Treatment Duration: Feb 03, 2023 Frequency: 5 times per week Estimated Hrs Per Day: .25 hour per day Patient and/or Family Agrees t: Yes Time Time In: 901 Time Out: 911 DATE: Jan 09, 2023 Total Billed Treatment Time: 10 Total Billed Treatment 1 visit [facility] 10 min ROSA SAMSON PT Jan 09, 2023 10:10
--- NOTE | 2023-01-09 10:29 | Occupational Ther Daily Note ---
OT Current Status-Daily Note Subjective Patient is confused, OT located IV on floor at arrival, notified RN NICKI missing IV Pain Comment: Patient reports his legs are too weak to walk and sand, confused Mental Status/Objective Patient Orientation: Person, Confused Attachments: Ellis Catheter (patient refers to it as a bag), IV (Patietn pulled out), Other-See Comments (chair alarm) ADL-Treatment Wash face and hands, oral care provided in sitting d/t low tolerance to stand and poor safety awareness Therapy Code Descriptions/Definitions Functional [place] Measure: 0=Not Assessed/NA 4=Minimal Assistance 1=Total Assistance 5=Supervision or Setup 2=Maximal Assistance 6=Modified [place] 3=Moderate Assistance 7=Complete IndependenceSCALE: Activities may be completed with or without assistive devices. 5-Yshcizgxyo-bjjkghw completes the activity by him/herself with no assistance fr om a helper. 5-Set-up or Clean-up Assistance-helper sets up or cleans up; patient completes activity. [place] assists only prior to or following the activity. 4-Supervision or Touching Assistance-helper provides verbal cues and/or touching/steadying and/or contact guard assistance as patient completes activity. Assistance may be provided throughout the activity or intermittently. 3-Partial/Moderate Assistance-helper does LESS THAN HALF the effort. [place] lifts, holds or supports trunk or limbs, but provides less than half the effort. 2-Substantial/Maximal Assistance-helper does MORE THAN HALF the effort. [place] lifts or holds trunk or limbs and provides more than half the effort. 9-Ibqxtemmn-ircfor does ALL the effort. Patient does none of the effort to complete the activity. Or, the assistance of 2 or more helpers is required for the patient to complete the activity. If activity was not attempted, code reason: 7-Patient Refused. 9-Not Applicable-not attempted and the patient did not perform the activity before the current illness, exacerbation or injury. 10-Not Attempted due to Environmental Limitations-(lack of equipment, weather restraints, etc.). 88-Not Attempted due to Medical Conditions or Safety Concerns. Eating (QC): 5 Oral Hygiene (QC): 4 Toilet Transfer (QC): 3 Education OT Patient Education: Correct positioning, Modified ADL techniques, Progress toward Goal/Update tx plan, Purpose of tx/functional activities, Reviewed precautions, Rehab process, Safety issues, Transfer techniques, Use of adapted equipment Teaching Recipient: Patient Teaching Methods: Discussion Response to Teaching: Unable to Comprehend, Reinforcement Needed OT Aerodynamics Professor Goals Aerodynamics Professor Goals Eating (QC): 6 Oral Hygiene (QC): 5 Toileting Hygiene (QC): 5 Shower/Bathe Self (QC): 5 Upper Body Dressing (QC): 5 Lower Body Dressing (QC): 5 On/Off Footwear (QC): 5 1=Demonstrate adherence to instructed precautions during ADL tasks. 2=Patient will verbalize/demonstrate understanding of assistive devices/modifications for ADL. 3=Patient will improve strength/tolerance for activity to enable patient to perform ADL's. OT Education/Plan Problem List/Assessment Assessment: Decreased Activ Tolerance, Decreased Safety Aware, Decreased UE Strength, Impaired Cognition, Impaired Coordination, Impaired Funct Balance, Impaired Self-Care Skills Discharge Recommendations Plan/Recommendations: Continue POC Treatment Plan/Plan of Care Treatment,Training & Education: Yes Patient would benefit from OT for education, treatment and training to promote independence in ADL's, mobility, safety and/or upper extremity function for ADL's. Plan of Care: ADL Retraining, Cognitive Retraining, Concurrent Therapy, F unctional Mobility, Group Exercise/Act as Ind, UE Funct Exercise/Act, UE Neuromus Re-Ed/Coord Treatment Duration: Jan 19, 2023 Frequency: 3 times per week (3-5 times per week) Estimated Hrs Per Day: .25 hour per day Agreement: Yes Rehab Potential: Fair Remains in recliner w/ chair alarm set, all needs met Time Start Time: 09:02 Stop Time: 09:12 DATE: Jan 09, 2023 Total Time Billed (hr/min): 10 Billed Treatment Time ADL 10 min KOKO STONE OT Jan 09, 2023 10:29
[2023-01-09 11:16] VITALS: BP 152/67
[2023-01-09 15:31] VITALS: BP 152/69
[2023-01-09] MEDS: ENOXAPARIN 40 MG/0.4 ML SYRINGE SC SCH (16:10)
[2023-01-09] MEDS: TAMSULOSIN 0.4 MG (FLOMAX) CAP PO SCH (17:42)
--- NOTE | 2023-01-09 18:02 | Progress Note - Hospitalist ---
Subjective HPI/CC On Admission Date Seen by Provider: Jan 09, 2023 Time Seen by Provider: 10:55 Randy Elliott is an 87 year old male with PMH BPH with urinary retention and rice catheter, T2DM, who was admitted after a fall at home. He was recently hospitalized due to a urinary tract infection. He returned home despite concern about weakness. He went home but was too weak and returned to the hospital. He was admitted and worked with therapy. His weakness improved and he was discharged home with home health. He says he has been working with therapy at home. Despite this, he has continued to have falls. He denies lightheadedness and dizziness. His daughter reportedly said he has fallen three times in the past week. He has a rice catheter in place and is supposed to follow up with Dr. Almendarez in his clinic tomorrow. Subjective/Events-last exam He is doing well. He has no complaints. Objective Exam Vital Signs Vital Signs Date Time Temp Pulse Resp B/P (MAP) Pulse Ox O2 Delivery O2 Flow Rate FiO2 01/09/23 15:31 36.6 74 18 152/69 (96) 98 Room Air Capillary Refill : Less Than 3 Seconds General Appearance: No Apparent Distress, WD/WN Respiratory: Lungs Clear, No Respiratory Distress Cardiovascular: Regular Rate, Rhythm, No Murmur Gastrointestinal: Normal Bowel Sounds, Soft Extremity: Normal Inspection, Non Tender Neurologic/Psychiatric: Alert, Normal Mood/Affect Results/Procedures Lab Patient resulted labs reviewed. Imaging: Reviewed Imaging Report Assessment/Plan Assessment and Plan Assess & Plan/Chief Complaint Frequent falls Unable to care for self Lumbar pain Weakness Debility PT/OT SW following Referral sent to Litodmitriy Logan BPH Urinary retention Rice catheter in place Continue home meds T2DM Levemir Sliding scale GERD HLD Continue home meds as able DVT prophylaxis: Lovenox Diagnosis/Problems Diagnosis/Problems (1) Frequent falls Status: Acute (2) Weakness Status: Acute (3) Coccyx contusion Qualifiers: Encounter type: initial encounter Qualified Codes: S30.0XXA - Contusion of lower back and pelvis, initial encounter (4) Lumbar pain Status: Acute (5) Debility Status: Acute (6) BPH with urinary obstruction Status: Acute (7) T2DM (type 2 diabetes mellitus) Status: Chronic (8) Unable to care for self Status: Acute CARMITA VILLALPANDO MD Jan 09, 2023 18:02
[2023-01-09 19:16] VITALS: BP 150/68
[2023-01-09] MEDS: ROSUVASTATIN 20 MG TABLET PO SCH (19:58)
[2023-01-09 23:19] VITALS: BP 125/57
[2023-01-10 03:23] VITALS: BP 117/55
[2023-01-10] MEDS: inSUlin ASPART 1 UNIT/0.01 ML (PER UNIT) SC SCH ×2 (06:03→11:48)
[2023-01-10 07:14] VITALS: BP 152/66
[2023-01-10] MEDS: ASPIRIN enteric coated 81MG TABLET PO SCH (08:48)
[2023-01-10] MEDS: inSUlin DETERMIR 1 UNIT/0.01 ML (CHARGE PER UNIT) SQ SCH (08:48)
[2023-01-10] MEDS ORDERED: FINASTERIDE 5 MG TABLET PO SCH (09:00)
--- NOTE | 2023-01-10 10:42 | Occ Therapy Progress Note ---
Therapy Progress Note Patient fell this morning, administered newberry medication, OT unable to arouse patient, OT will monitor for next available opportunity KOKO STONE OT Jan 10, 2023 10:42
[2023-01-10 11:17] VITALS: BP 139/71
[2023-01-10] MEDS ORDERED: OMEP20TA56 PO (11:51)
[2023-01-10] MEDS ORDERED: HYDR25TA4 PO (11:51)
[2023-01-10] MEDS ORDERED: INSU100I14 SQ (11:51)
[2023-01-10] MEDS ORDERED: ASPI-1238 PO (11:51)
[2023-01-10] MEDS ORDERED: INSU100I10 SQ (11:51)
[2023-01-10] MEDS ORDERED: ROSU40TA23 PO (11:51)
[2023-01-10] MEDS ORDERED: TMSL.4C PO (11:51)
[2023-01-10] MEDS ORDERED: FINA5TAB6 PO (11:51)
--- NOTE | 2023-01-10 13:06 | Physical Therapy Progress Note ---
Therapy Progress Note Attempted to see patient for am PT treatment. Patient would not respond to verbal or tactile cues. Nurse notified, will attempt again this after as time permits. JASSI RIVERA PT Jan 10, 2023 13:06
[2023-01-10 13:32] VITALS: BP 139/71
--- NOTE | 2023-01-10 21:06 | Discharge Summary ---
Discharge Summary Hospital Course Problems/Dx: (1) Frequent falls Status: Acute (2) Weakness Status: Acute (3) Coccyx contusion Qualifiers: Qualified Codes: S30.0XXA - Contusion of lower back and pelvis, initial encounter (4) Lumbar pain Status: Acute (5) Debility Status: Acute (6) BPH with urinary obstruction Status: Acute (7) T2DM (type 2 diabetes mellitus) Status: Chronic (8) Unable to care for self Status: Acute Hospital Course Date of Admission: Jan 07, 2023 at 14:30 Admission Diagnosis : Fall, debility Family Physician/Provider: Dawit Dempsey MD Date of Discharge: 01/10/23 Discharge Diagnosis: Fall, debility Hospital Course: Randy Elliott is an 87 year old male with PMH BPH with urinary retention and rice catheter, T2DM, who was admitted after a fall at home. He was recently hospitalized due to a urinary tract infection. He returned home despite concern about weakness. He went home but was too weak and returned to the hospital again. He was admitted and worked with therapy. His weakness improved and he was discharged home with home health. He had been working with therapy at home. Despite this, he continued to have falls. He was admitted once again. He had no acute issues. He worked with therapy. He was discharged to [facility] in stable condition. Labs and Pending Lab Test: Laboratory Tests 01/09/23 20:26: Glucometer 190H 01/09/23 23:37: Glucometer 170H 01/10/23 05:20: Glucometer 158H 01/10/23 10:05: Glucometer 160H Home Meds Active Novolog Flexpen (Insulin Aspart) 100 Unit/Ml (3 Ml) Solution 0-6 Unit SQ AC PRN 30 Days SLIDING SCALE INSULIN 150-199 = 1 UNIT 200-249 = 2 UNITS 250-299 = 3 UNITS 300-349 = 4 UNITS 350-399 = 5 UNITS 400+ = 6 UNITS AND NOTIFY PHYSICIAN Jaja Reynolds (Insulin Glargine,Hum.rec.anlog) 100 Unit/Ml (3 Ml) Insuln.pen 15 Unit SQ DAILY 30 Days Finasteride 5 Mg Tablet 5 Mg PO DAILY 30 Days Flomax (Tamsulosin HCl) 0.4 Mg Cap 0.8 Mg PO DAILY@1800 30 Days Aspirin EC (Aspirin) 81 Mg Tablet.dr 81 Mg PO DAILY 30 Days Rosuvastatin Calcium 40 Mg Tablet 20 Mg PO HS 30 Days Omeprazole 20 Mg Tablet.dr 20 Mg PO DAILY PRN 30 Days Hydrochlorothiazide 25 Mg Tablet 25 Mg PO DAILY 30 Days Assessment/Pt Instructions see instructions Discharge Planning: >30 minutes discharge planning Discharge Instructions Discharge Diet: Low Sodium Diet Activity as Tolerated: Yes Discharge Physical Examination Vital Signs Vital Signs Date Time Temp Pulse Resp B/P (MAP) Pulse Ox O2 Delivery O2 Flow Rate FiO2 01/10/23 13:32 36.4 68 16 139/71 98 Room Air General Appearance: No Apparent Distress, WD/WN Respiratory: Lungs Clear, No Respiratory Distress Cardiovascular: Regular Rate, Rhythm, No Murmur Gastrointestinal: Normal Bowel Sounds, Soft Extremity: Normal Inspection, No Pedal Edema Skin: Normal Color, Warm/Dry Neurologic/Psychiatric: Alert, Normal Mood/Affect Allergies: Coded Allergies: Sulfa (Sulfonamide Antibiotics) (Unverified Allergy, Severe, HIVES, SOA, 01/08/19) morphine (Verified Allergy, Unknown, pt has tolerated hydromorphone, ) Discharge Summary Date of Admission Jan 07, 2023 at 14:30 Date of Discharge Jan 10, 2023 at 13:36 Discharge Date: Jan 10, 2023 Discharge Time: 13:36 Admission Diagnosis Fall Discharge Diagnosis Frequent falls Unable to care for self Lumbar pain Weakness Debility BPH Urinary retention T2DM GERD HLD (1) Frequent falls Status: Acute (2) Weakness Status: Acute (3) Coccyx contusion Qualifiers: Qualified Codes: S30.0XXA - Contusion of lower back and pelvis, initial encounter (4) Lumbar pain Status: Acute (5) Debility Status: Acute (6) BPH with urinary obstruction Status: Acute (7) T2DM (type 2 diabetes mellitus) Status: Chronic (8) Unable to care for self Status: Acute CARMITA VILLALPANDO MD Jan 10, 2023 20:48
== END 2023-01-10 13:36 | DRG 948 ==
LOC: EDUNIT# 10:51 → ER 10:52 → 4TH 14:30
PROVIDERS: ADMIT Family Medicine; ATTEND Internal Medicine
DX: R53.1 Weakness (principal); S30.0XXA Contusion of lower back and pelvis, initial encounter; R31.0 Gross hematuria; Z91.81 History of falling; W19.XXXA Unspecified fall, initial encounter; Z79.82 Long term (current) use of aspirin; Z79.4 Long term (current) use of insulin; Z79.899 Other long term (current) drug therapy; I10 Essential (primary) hypertension; E78.00 Pure hypercholesterolemia, unspecified; Z95.5 Presence of coronary angioplasty implant and graft; I25.10 Atherosclerotic heart disease of native coronary artery without angina pectoris; I25.2 Old myocardial infarction; M19.90 Unspecified osteoarthritis, unspecified site; E11.9 Type 2 diabetes mellitus without complications; F41.9 Anxiety disorder, unspecified; Z87.891 Personal history of nicotine dependence; R53.81 Other malaise; N40.1 Benign prostatic hyperplasia with lower urinary tract symptoms; R33.8 Other retention of urine; K21.9 Gastro-esophageal reflux disease without esophagitis; M54.50 Low back pain, unspecified
CPT/HCPCS: 36415; 70450; 72100; 72125; 72131; 72220; 73523; 80048; 82947; 85025; 85027; 96374; 96375; 96376